=== PATIENT | female | born 1985 | race Two or more races ===

== ENCOUNTER 2016-09-26 19:51 | Emergency (ER) | payer OTHER ==
[~2016-09-26] VITALS: Ht 162.6 cm; Wt 94.6 kg
[~2016-09-26 19:51] MED LIST: ACET-704 PO; CITA10TA8 PO; CITA40TA12 PO; CYCL10TA2 PO; DICY20TA30; HYDR-210 PO; IBUP-1060 PO; LANS30TA6 PO; OMEP10CA PO; ONDA4TAB10 SL; ONDA4TAB7; PROM50VI IJ; PROM50VI PO; SUCR1TAB29; SULF1TAB24 PO
[2016-09-26] MEDS ORDERED: HYDR-2666 PO (21:16)
[2016-09-26] MEDS ORDERED: POLY17PO5 PO (21:16)
--- NOTE | 2016-09-26 21:16 | PHYS DOC ---
Past Medical History Past Medical History: Diverticulosis, IBS, Kidney Stone, Other Additional Past Medical Histor: Ischemic colitis, dumping syndrome, CYSTOSCOPY W/ STENT PLACEMENT Past Surgical History: Cholecystectomy, Gastric Bypass, Hysterectomy, Tubal ligation, Other Additional Past Surgical Histo: bladder x3, vag lift, low back surg NOS, ear tubes placed as child Alcohol Use: Occasionally Drug Use: None Adult General Chief Complaint Chief Complaint: PELVIC PAIN HPI HPI 31-year-old female presenting the emergency department with pelvic pain associated with defecation. She reports feeling a bulge in her vagina when she defecates. She denies any fevers or chills. She denies nausea or vomiting. Her pain is sharp intermittent moderate and without alleviating factors. She currently has an appointment with a software quality engineer on Monday. Review of Systems Review of Systems ROS negative for fevers chills chest pain shortness of breath. All other review of systems is negative unless otherwise noted in history of present illness. Allergies Allergies Allergies Coded Allergies Type Severity Reaction Last Updated Verified metronidazole Allergy Intermediate Hives 11/11/14 Yes Physical Exam Physical Exam Constitutional: Well developed, well nourished, no acute distress, non-toxic appearance. [] HENT: Normocephalic, atraumatic, bilateral external ears normal, oropharynx moist, no oral exudates, nose normal. [] Eyes: PERRLA, EOMI, conjunctiva normal, no discharge. [] Neck: Normal range of motion, no tenderness, supple, no stridor. [] Cardiovascular:Heart rate regular rhythm, no murmur [] Lungs & Thorax: Bilateral breath sounds clear to auscultation [] Abdomen: Abdomen is minimally tender in the left lower quadrant without rebound tenderness or guarding present. Negative McBurney's point. Negative Steven sign. No hernia appreciated in the inguinal region. Vaginal exam performed in the presence of a female nurse showed mild swelling with Valsalva in the posterior aspect of the vagina. Skin: Warm, dry, no erythema, no rash. [] Back: No tenderness, no CVA tenderness. [] Extremities: No tenderness, no cyanosis, no clubbing, ROM intact, no edema. [] Neurologic: Alert and oriented X 3, normal motor function, normal sensory function, no focal deficits noted. [] Psychologic: Affect normal, judgement normal, mood normal. [] Current Patient Data Vital Signs Vital Signs Date Time Temp Pulse Resp B/P Pulse Ox O2 Delivery O2 Flow Rate FiO2 09/26/16 21:17 88 18 139/93 97 Room Air 09/26/16 20:35 98.6 98.6 EKG EKG [] Radiology/Procedures Radiology/Procedures [] Course & Med Decision Making Course & Med Decision Making Pertinent Labs and Imaging studies reviewed. (See chart for details) 31-year-old female presenting to the emergency department with signs and symptoms consistent with a rectocele. Patient currently has follow-up with software quality engineer and previously had a surgery for similar complaint. Vital signs were unremarkable. Abdomen exam was unconcerning. The patient was provided pain medications to follow-up with gynecology on Monday. Dragon Disclaimer Dragon Disclaimer This electronic medical record was generated, in whole or in part, using a voice recognition dictation system. Departure Departure Impression: Primary Impression: Rectocele without uterine prolapse Disposition: HOME, SELF-CARE Condition: STABLE Referrals: PIERCE MARTINO MD (PCP) MICHAEL ADLER Jr, MD GYNOCOLOGY Patient Instructions: Pelvic Pain, Female, [id number] Additional Instructions: Thank you for allowing us to participate in your care today. Followup with your gynocologist on mon. Return to the emergency department you have any new or concerning findings. This should be evaluated by the primary care physician and any necessary consulting services for continued management within a few days after discharge. Return to emergency room if you have any new or concerning symptoms including but not limited to fever, chills, nausea, vomiting, intractable pain, any new rashes, chest pain, shortness of air, uncontrolled bleeding, difficulty breathing, and/or vision loss. You may have been prescribed medication that can change in your level of thinking and ability to operate machinery. These medications include hydrocodone and Ativan. Also, Benadryl has been known to do this as well. Be sure to check with your pharmacist and ask if the medications you've prescribed can affect your level of consciousness. I recommend not operating heavy machinery or driving while on medication such as these. Scripts Polyethylene Glycol 3350 (Miralax)17 Gm Powd.pack1 Packet PO DAILY #30 PACKET Ref 3 Prov:AIDE CAMARENA MD 09/26/16 Hydrocodone Bit/Acetaminophen (Hydrocodone-Apap 5-325 )1 Each Tablet1 Tab PO PRN Q6HRS PRN PAIN #15 TAB Be careful as this medication may cause you to be drowsy or tired. Do not drive on this medication. Prov:AIDE CAMARENA MD 09/26/16 AIDE CAMARENA MD Sep 26, 2016 21:17
[2016-09-26 21:17] VITALS: BP 139/93
== END 2016-09-26 21:19 | disposition home or self-care (01) ==
LOC: ER 19:51
DX: N81.6 Rectocele (principal); Z90.49 Acquired absence of other specified parts of digestive tract; Z90.710 Acquired absence of both cervix and uterus; Z98.51 Tubal ligation status; Z98.84 Bariatric surgery status; Z88.1 Allergy status to other antibiotic agents
CPT/HCPCS: 99283

== ENCOUNTER 2016-10-08 14:12 | Emergency (ER) | payer OTHER ==
[~2016-10-08] VITALS: Ht 162.6 cm; Wt 90.7 kg
[~2016-10-08 14:12] MED LIST changes: +HYDR-2666 PO; +POLY17PO5 PO
[2016-10-08 15:02] LABS: NEG OBC UR NEG; POS OBC UR POS
[2016-10-08 15:04] LABS: BILIRUBIN,URINE NEGATIVE (NEG); GLUCOSE,URINE NEGATIVE (NEG); NITRITE,URINE NEGATIVE (NEG); PH,URINE 7.5; PROTEIN,URINE NEGATIVE (NEG-TRACE)
[2016-10-08] MEDS ORDERED: IV NORMAL SALINE 1000ML BAG 1,000 ML IV SCH (15:12)
[2016-10-08] MEDS: MORPHINE SULFATE 4 MG/ML DISP.SYRIN. IV ONE ×2 (15:15→15:57)
[2016-10-08] MEDS ORDERED: ONDANSETRON PF 4 MG/2 ML VIAL. IV ONE (15:15)
[2016-10-08] MEDS ORDERED: KETOROLAC 15 MG/ML VIAL. IV ONE (15:15)
[2016-10-08 15:18] LABS: BACTERIA,URINE MODERATE /HPF (0-FEW); RBC,URINE 0 /HPF (0-2); SQUAMOUS EPITHELIAL CELL,UR MANY /LPF; WBC,URINE 0 /HPF (0-4)
--- NOTE | 2016-10-08 15:19 | PHYS DOC ---
Past Medical History Past Medical History: Diverticulosis, IBS, Kidney Stone, Other Additional Past Medical Histor: Ischemic colitis, dumping syndrome, prolapse bladder and rectum Past Surgical History: Cholecystectomy, Gastric Bypass, Hysterectomy, Tubal ligation, Other Additional Past Surgical Histo: bladder x3, vag lift, low back sx NOS, cystoscopy w/ stent Alcohol Use: Occasionally Drug Use: None Adult General Chief Complaint Chief Complaint: FLANK PAIN HPI HPI Patient is a 31 year old female who presents with R flank pain. Patient reports that this morning she had onset of R flank pain without provocation. She describes a constant "punching" pain with occasional stabbing pain. No clear mitigating factors. She has not taken anything for pain as she could not find the meds at home. Patient has been having N/V as well for the past few days that she attributes to her hiatal hernia. Patient reports pain similar to prior kidney stones; last stone was 1-2 years ago. She does have some dysuria today at well. No other acute complaints. Review of Systems Review of Systems Constitutional: Denies fever or chills Eyes: Denies change in visual acuity or eye pain HENT: Denies nasal congestion or sore throat Respiratory: Denies cough or shortness of breath Cardiovascular: Denies chest pain GI: Nausea/vomiting. Denies abdominal pain, bloody stools or diarrhea : Dysuria, frequency Musculoskeletal: R flank pain. Integument: Denies rash or skin lesions Neurologic: Denies headache, focal weakness or sensory changes Current Medications Current Medications Current Medications Medications (Trade) Dose Ordered Sig/Too Start Time Stop Time Status Last Admin Dose Admin Acetaminophen/ Hydrocodone Bitart (Lortab 5/325) 2 tab 1X ONCE 10/08/16 16:45 10/08/16 16:46 UNV Ketorolac Tromethamine (Toradol) 15 mg ONCE ONCE 10/08/16 15:30 10/08/16 15:31 DC 10/08/16 15:40 15 MG Morphine Sulfate 4 mg 1X ONCE 10/08/16 15:15 10/08/16 16:00 DC 10/08/16 15:57 4 MG Ondansetron HCl (Zofran) 4 mg 1X ONCE 10/08/16 15:15 10/08/16 15:18 DC 10/08/16 15:40 4 MG Sodium Chloride (Iv Sodium Chloride 0.9% 1000ml Bag) 1,000 ml @ 1,000 mls/hr Q1H 10/08/16 15:12 10/08/16 16:11 DC 10/08/16 15:41 1,000 MLS/HR Allergies Allergies Allergies Coded Allergies Type Severity Reaction Last Updated Verified metronidazole Allergy Intermediate Hives 11/11/14 Yes Physical Exam Physical Exam Constitutional: Well developed, well nourished, non-toxic appearance HENT: Normocephalic, atraumatic, bilateral external ears normal Eyes: EOMI, conjunctiva normal, no discharge Neck: Normal range of motion, no stridor Cardiovascular: Heart rate normal, regular rhythm, no murmur Lungs & Thorax: Bilateral breath sounds clear to auscultation Abdomen: Bowel sounds normal, soft, non-distended, no TTP Skin: Warm, dry, no erythema, no rash Back: R CVA tenderness Extremities: No obvious deformity, no edema Neurologic: Alert and oriented X 3, no gross deficits noted Current Patient Data Vital Signs Vital Signs Date Time Temp Pulse Resp B/P Pulse Ox O2 Delivery O2 Flow Rate FiO2 10/08/16 15:57 16 10/08/16 14:22 98.4 68 149/83 100 Room Air 98.4 Lab Values Laboratory Tests Test 10/08/16 14:28 10/08/16 15:12 Urine Collection Type Unknown Urine Color Yellow Urine Clarity Turbid Urine pH 7.5 Urine Specific [place] 1.025 Urine Protein Negativemg/dL (NEG-TRACE) Urine Glucose (UA) Negativemg/dL (NEG) Urine Ketones (Stick) Negativemg/dL (NEG) Urine Blood Negative (NEG) Urine Nitrite Negative (NEG) Urine Bilirubin Negative (NEG) Urine Urobilinogen Dipstick 1.0mg/dL (0.2 mg/dL) Urine Leukocyte Esterase Negative (NEG) Urine RBC 0/HPF (0-2) Urine WBC 0/HPF (0-4) Urine Squamous Epithelial Cells Many/LPF Urine Bacteria Moderate/HPF (0-FEW) Urine Test Negative (NEG) White Blood Count 9.0x10^3/uL (4.0-11.0) Red Blood Count 4.48x10^6/uL (3.50-5.40) Hemoglobin 12.3g/dL (12.0-15.5) Hematocrit 37.4% (36.0-47.0) Mean Corpuscular Volume 84fL (79-100) Mean Corpuscular Hemoglobin 27pg (25-35) Mean Corpuscular Hemoglobin Concent 33g/dL (31-37) Red Cell Distribution Width 16.9% (11.5-14.5) H Platelet Count 314x10^3/uL (140-400) Neutrophils (%) (Auto) 60% (31-73) Lymphocytes (%) (Auto) 31% (24-48) Monocytes (%) (Auto) 6% (0-9) Eosinophils (%) (Auto) 3% (0-3) Basophils (%) (Auto) 0% (0-3) Neutrophils # (Auto) 5.4x10^3uL (1.8-7.7) Lymphocytes # (Auto) 2.8x10^3/uL (1.0-4.8) Monocytes # (Auto) 0.5x10^3/uL (0.0-1.1) Eosinophils # (Auto) 0.3x10^3/uL (0.0-0.7) Basophils # (Auto) 0.0x10^3/uL (0.0-0.2) Sodium Level 145mmol/L (136-145) Potassium Level 3.9mmol/L (3.5-5.1) Chloride Level 106mmol/L (98-107) Carbon Dioxide Level 31mmol/L (21-32) Anion Gap 8 (6-14) Blood Urea Nitrogen 11mg/dL (7-20) Creatinine 0.7mg/dL (0.6-1.0) Estimated GFR (Cockcroft-Gault) 97.0 BUN/Creatinine Ratio 16 (6-20) Glucose Level 89mg/dL (70-99) Calcium Level 9.1mg/dL (8.5-10.1) Total Bilirubin 0.3mg/dL (0.2-1.0) Aspartate Amino Transferase (AST) 18U/L (15-37) Alanine Aminotransferase (ALT) 25U/L (14-59) Alkaline Phosphatase 77U/L (46-116) Total Protein 7.0g/dL (6.4-8.2) Albumin 3.5g/dL (3.4-5.0) Albumin/Globulin Ratio 1.0 (1.0-1.7) Laboratory Tests 10/08/16 15:12 Laboratory Tests 10/08/16 15:12 EKG EKG [] Radiology/Procedures Radiology/Procedures CT A/P: IMPRESSION - No evidence of renal stone or hydronephrosis. - Diverticulosis with no evidence of acute diverticulitis. - Status post cholecystectomy, hysterectomy and gastric bypass. Course & Med Decision Making Course & Med Decision Making Pertinent Labs and Imaging studies reviewed. (See chart for details) Patient is 31 year old female who presents with R flank pain. Suspect ureteral stone. Will check labs, UA, CT A/P (after discussion with patient about pros/ cons of repeat imaging, eg radiation exposure). IVF bolus, pain meds, nausea meds ordered for relief of symptoms. UA shows bacteria but no WBCs, leuk esterase, nitrites, or blood. Blood work unremarkable. Imaging results as above. Pain due to muscle spasm? Discussed results with patient, who reports symptoms improved. Will discharge home with rx for naproxen (patient declined rx for muscle relaxant or nausea med as she already has those at home). Given instructions for follow up and return precautions. Dragon Disclaimer Dragon Disclaimer This electronic medical record was generated, in whole or in part, using a voice recognition dictation system. Departure Departure Impression: Primary Impression: Flank pain Disposition: 01 HOME, SELF-CARE Condition: IMPROVED Referrals: PIERCE MARTINO MD (PCP) Patient Instructions: Flank Pain Additional Instructions: Thank you for allowing us to provide care today in the Emergency Department. Take the provided medication as directed. Continue to take the muscle relaxant and nausea medication that you have at home already. Schedule a follow up appointment with your primary care doctor. Return promptly to the Emergency Department if you develop any new or concerning symptoms. Scripts Naproxen 375 Mg [id number] Mg PO BID PRN PAIN #20 Prov:ROSAURA PHIPPS MD 10/08/16 ROSAURA PHIPPS MD Oct 08, 2016 15:19
[2016-10-08] MEDS ORDERED: KETOROLAC TROMETHAMINE 30 MG/ML SYRINGE. IV ONE (15:30)
[2016-10-08 15:50] LABS: BASO % 0 % (0-3); EOS % 3 % (0-3); HEMATOCRIT 37.4 % (36.0-47.0); HEMOGLOBIN 12.3 g/dL (12.0-15.5); LYMPH # 2.8 x10^3/uL (1.0-4.8); LYMPH % 31 % (24-48); MEAN CORPUSCULAR HEMOGLOBIN 27 pg (25-35); MEAN CORPUSCULAR HGB CONC 33 g/dL (31-37); MEAN CORPUSCULAR VOLUME 84 fL (79-100); MONO % 6 % (0-9); NEUT % 60 % (31-73); PLATELET COUNT 314 x10^3/uL (140-400); RED BLOOD COUNT 4.48 x10^6/uL (3.50-5.40); RED CELL DISTRIBUTION WIDTH 16.9 % (11.5-14.5)
[2016-10-08 16:05] LABS: CALCIUM 9.1 mg/dL (8.5-10.1); CREATININE 0.7 mg/dL (0.6-1.0); POTASSIUM 3.9 mmol/L (3.5-5.1)
[2016-10-08 16:11] LABS: ALBUMIN 3.5 g/dL (3.4-5.0); TOTAL BILIRUBIN 0.3 mg/dL (0.2-1.0)
--- NOTE | 2016-10-08 16:25 | RAD ---
PROCEDURE CT abdomen and pelvis without contrast dated 10/08/2016. HISTORY Right-sided flank pain started this morning. TECHNIQUE Contiguous axial imaging of the abdomen and pelvis performed without the administration of intravenous contrast.Exposure: One or more of the following individualized dose reduction techniques were utilized for this exam: 1. Automated exposure control. 2. Adjustment of the mA and/or kV according to patient size. 3. Use of iterative reconstruction technique. COMPARISON 08/14/2016. FINDINGS Limited images of the lung bases are clear. Heart size within normal limits. No pleural or pericardial effusion. Solid abdominal viscera not well evaluated in the absence of contrast material. No apparent attenuation abnormality within the liver or spleen. Gallbladder is surgically absent. Pancreas is atrophic. Adrenal glands unremarkable. Both kidneys are symmetric in size and attenuation. No calcific renal or ureteral stone. No hydronephrosis. Unopacified GI tract normal in caliber and contour. Scattered diverticula throughout the colon. No pericolonic inflammatory changes. Evidence of prior gastric bypass. The appendix is not clearly identified. No inflammatory changes in the right lower quadrant. Images of pelvis show nondistended urinary bladder. No calcific bladder stone. No free pelvic fluid or pelvic lymphadenopathy. Uterus is surgically absent. Bone windows show no acute findings. Mild multilevel spondylosis. IMPRESSION - No evidence of renal stone or hydronephrosis. - Diverticulosis with no evidence of acute diverticulitis. - Status post cholecystectomy, hysterectomy and gastric bypass. Electronically signed by: Breezy Mcdowell (Oct 08, 2016 16:24:23)
[2016-10-08 16:30] VITALS: BP 155/66
[2016-10-08] MEDS ORDERED: NAPR375T3 PO (16:36)
[2016-10-08] MEDS ORDERED: HYDROCODONE/APAP 5/325MG TABLET. PO ONE (16:45)
== END 2016-10-08 16:54 | disposition home or self-care (01) ==
LOC: ER 14:12
DX: R10.9 Unspecified abdominal pain (principal); Z90.49 Acquired absence of other specified parts of digestive tract; Z90.710 Acquired absence of both cervix and uterus; Z98.51 Tubal ligation status; Z98.84 Bariatric surgery status; Z88.1 Allergy status to other antibiotic agents
CPT/HCPCS: 36415; 74176; 80053; 81001; 81025; 85027; 87086; 96361; 96374; 96375; 99285; J1885; J2270; J2405; J7030

== ENCOUNTER 2016-11-03 20:16 | Emergency (ER) | payer OTHER ==
[~2016-11-03] VITALS: Ht 162.6 cm; Wt 90.7 kg
[~2016-11-03 20:16] MED LIST changes: +NAPR375T3 PO
[2016-11-03 22:14] LABS: BASO % 0 % (0-3); EOS % 4 % (0-3); HEMATOCRIT 38.3 % (36.0-47.0); HEMOGLOBIN 12.4 g/dL (12.0-15.5); LYMPH % 36 % (24-48); MEAN CORPUSCULAR HEMOGLOBIN 27 pg (25-35); MEAN CORPUSCULAR HGB CONC 32 g/dL (31-37); MEAN CORPUSCULAR VOLUME 84 fL (79-100); MONO % 8 % (0-9); NEUT % 51 % (31-73); PLATELET COUNT 349 x10^3/uL (140-400); RED BLOOD COUNT 4.58 x10^6/uL (3.50-5.40); RED CELL DISTRIBUTION WIDTH 16.7 % (11.5-14.5); WHITE BLOOD COUNT 8.3 x10^3/uL (4.0-11.0)
[2016-11-03] MEDS ORDERED: NAPROXEN 250 MG TABLET PO ONE (22:30)
[2016-11-03 22:31] LABS: CREATININE 0.7 mg/dL (0.6-1.0); POTASSIUM 3.4 mmol/L (3.5-5.1)
[2016-11-04 00:47] VITALS: BP 129/73
[2016-11-04] MEDS ORDERED: NAPR250T2 PO (00:50)
[2016-11-04] MEDS ORDERED: CYCL10TA2 PO (00:50)
[2016-11-04] MEDS ORDERED: DIAZEPAM 5 MG TABLET PO ONE (01:00)
--- NOTE | 2016-11-04 01:28 | ED.ADGEN ---
Past Medical History Past Medical History: Diverticulosis, IBS, Kidney Stone, Other Additional Past Medical Histor: Ischemic colitis, dumping syndrome, prolapse bladder and rectum Past Surgical History: Cholecystectomy, Gastric Bypass, Hysterectomy, Tubal ligation, Other Additional Past Surgical Histo: bladder x3, vag lift, low back sx NOS, cystoscopy w/ stent Alcohol Use: Occasionally Drug Use: None Adult General Chief Complaint Chief Complaint: CHEST PAIN HPI HPI Patient is a 31 year old woman, history of type 2 diabetes mellitus, on hormonal replacement therapy, who presents to the emergency department with complaint of right upper chest pain radiating to the arm, which she states she first noted on Monday. Patient states that she was "playing a dancing game", with her kids on Monday night, states that she does not recall any discrete injuries, but was more active than usual. States that she woke up in the morning was experiencing right upper chest wall pain, that was worse with motion and deep inspiration. She denies any fevers or chills, any cough, any shortness of breath, states the pain is worse with deep inspiration and direct palpation, no history of DVT or PE, no swelling of the extremities. No other complaints. She took ibuprofen yesterday, and states that it helped slightly. No medications today. No drugs, alcohol or cigarettes. Review of Systems Review of Systems Constitutional: Denies fever or chills. [] Eyes: Denies change in visual acuity. [] HENT: Denies nasal congestion or sore throat. [] Respiratory: Denies cough or shortness of breath. [] Cardiovascular: Denies edema, complaining of right-sided chest wall pain, with radiation into the right arm. Sharp and stabbing. GI: Denies abdominal pain, nausea, vomiting, bloody stools or diarrhea. [] : Denies dysuria. [] Musculoskeletal: Denies back pain or joint pain. [] Integument: Denies rash. [] Neurologic: Denies headache, focal weakness or sensory changes. [] Endocrine: Denies polyuria or polydipsia. [] Lymphatic: Denies swollen glands. [] Psychiatric: Denies depression or anxiety. [] Current Medications Current Medications Current Medications Medications (Trade) Dose Ordered Sig/Too Start Time Stop Time Status Last Admin Dose Admin Diazepam (Valium) 5 mg 1X ONCE 11/04/16 01:00 11/04/16 01:01 DC 11/04/16 00:53 5 MG Naproxen (Naprosyn) 250 mg 1X ONCE 11/03/16 22:30 11/03/16 22:31 DC 11/03/16 22:33 250 MG Allergies Allergies Allergies Coded Allergies Type Severity Reaction Last Updated Verified metronidazole Allergy Intermediate Hives 11/11/14 Yes Physical Exam Physical Exam Constitutional: Well developed, well nourished, no acute distress, non-toxic appearance. [] HENT: Normocephalic, atraumatic, bilateral external ears normal, oropharynx moist, no oral exudates, nose normal. [] Eyes: PERRLA, EOMI, conjunctiva normal, no discharge. [] Neck: Normal range of motion, no tenderness, supple, no stridor. [] Cardiovascular:Heart rate regular rhythm, no murmur , S1, S2, rubs or gallops. Patient with reproducible anterior right chest wall pain, with palpation between ribs 4 and 5, with mild tenderness palpation extending into the shoulder. No rashes or lesions or other maladies identified and external examination, no crepitus. [] Lungs & Thorax: Bilateral breath sounds clear to auscultation [] Abdomen: Bowel sounds normal, soft, no tenderness, no masses, no rebound, rigidity, no guarding, no pulsatile masses. [] Skin: Warm, dry, no erythema, no rash. [] Back: No tenderness, no CVA tenderness. [] Extremities: No tenderness, no cyanosis, no clubbing, ROM intact, no edema. Negative Homans sign. [] Neurologic: Alert and oriented X 3, normal motor function, normal sensory function, no focal deficits noted. [] Psychologic: Affect normal, judgement normal, mood normal. [] Current Patient Data Vital Signs Vital Signs Date Time Temp Pulse Resp B/P Pulse Ox O2 Delivery O2 Flow Rate FiO2 11/03/16 22:13 64 20 158/79 96 Room Air 11/03/16 20:25 98.1 98.1 Lab Values Laboratory Tests Test 11/03/16 20:45 White Blood Count 8.3x10^3/uL (4.0-11.0) Red Blood Count 4.58x10^6/uL (3.50-5.40) Hemoglobin 12.4g/dL (12.0-15.5) Hematocrit 38.3% (36.0-47.0) Mean Corpuscular Volume 84fL (79-100) Mean Corpuscular Hemoglobin 27pg (25-35) Mean Corpuscular Hemoglobin Concent 32g/dL (31-37) Red Cell Distribution Width 16.7% (11.5-14.5) H Platelet Count 349x10^3/uL (140-400) Neutrophils (%) (Auto) 51% (31-73) Lymphocytes (%) (Auto) 36% (24-48) Monocytes (%) (Auto) 8% (0-9) Eosinophils (%) (Auto) 4% (0-3) H Basophils (%) (Auto) 0% (0-3) Neutrophils # (Auto) 4.2x10^3uL (1.8-7.7) Lymphocytes # (Auto) 3.0x10^3/uL (1.0-4.8) Monocytes # (Auto) 0.7x10^3/uL (0.0-1.1) Eosinophils # (Auto) 0.3x10^3/uL (0.0-0.7) Basophils # (Auto) 0.0x10^3/uL (0.0-0.2) D-Dimer (Britney) < 0.27ug/mlFEU (0.00-0.50) Sodium Level 145mmol/L (136-145) Potassium Level 3.4mmol/L (3.5-5.1) L Chloride Level 106mmol/L (98-107) Carbon Dioxide Level 29mmol/L (21-32) Anion Gap 10 (6-14) Blood Urea Nitrogen 6mg/dL (7-20) L Creatinine 0.7mg/dL (0.6-1.0) Estimated GFR (Cockcroft-Gault) 97.0 Glucose Level 70mg/dL (70-99) Calcium Level 9.0mg/dL (8.5-10.1) Troponin I Quantitative < 0.017ng/mL (0.000-0.055) Laboratory Tests 11/03/16 20:45 Laboratory Tests 11/03/16 20:45 EKG EKG EC: Sinus rhythm, heart rate 71 bpm, upright axis, QTC of 413, NC 136, QRS of 92, no ST elevations or depressions, noted and some acute ST abnormalities. As interpreted by me. [] Radiology/Procedures Radiology/Procedures Chest x-ray: PA and lateral: Normal cardiopulmonary silhouette, no infiltrates, no effusions, no soft tissue or bony abnormalities identified. As interpreted by me.[] Course & Med Decision Making Course & Med Decision Making Pertinent Labs and Imaging studies reviewed. (See chart for details) Patient well-appearing, has had constant pain which is reproducible for the past 5 days. Chest x-ray obtained, along basic laboratory studies due to patient 's concerns, history of hormone repletion therapy, and type 2 diabetes mellitus , with concern for possible atypical chest pain. Laboratory studies including d- dimer within normal limits, chest x-ray to Jerry. I did discuss these findings in detail patient at bedside, at this time I believe that there is no evidence of is a cardiac or pulmonary abnormality, is consistent with costochondritis, musculoskeletal cause. Patient received naproxen and Valium in the ED, is feeling better and reevaluation. Patient is in agreement with the plan to use naproxen, cycled endocrine, will follow up with a primary care provider if symptoms persist, and will return to the ED if any new or concerning symptoms as discussed develop. Patient discharged home in stable condition with prescription for naproxen and cycled endocrine, with plan as above. Dragon Disclaimer Gianna Disclaimer This electronic medical record was generated, in whole or in part, using a voice recognition dictation system. Departure Impression: Primary Impression: Costochondritis Disposition: HOME, SELF-CARE Condition: IMPROVED Scripts Naproxen 250 Mg [id number] Mg PO BID PRN PAIN #10 Prov:ANIL MOLINA DO 11/04/16 Cyclobenzaprine Hcl 10 Mg [id number] Mg PO TID PRN MUSCLE SPASMS #10 TAB Prov:ANIL MOLINA DO 11/04/16 ANIL MOLINA DO Nov 04, 2016 01:28
--- NOTE | 2016-11-04 06:09 | EKG ---
[facility] [address] [place] [address] Test Date: 2016-11-03 Test Time: 20:30:45 Pat Name: DAYTON MONROE Department: Room: Gender: F Glassie: : 1985 Requested By: ANIL MOLINA Order Number: [id number] Reading MD: Jaswant Person Measurements Intervals [place] Rate: 71 P: 41 [place]: 136 QRS: 30 QRSD: 92 T: 28 QT: 376 QTc: 413 Interpretive Statements SINUS RHYTHM RI6.01 Unconfirmed report Compared to ECG 12/29/2013 17:34:04 No significant changes Electronically Signed On 11-20-2016 9:48:11 YARN REWINDER by Jaswant Person
--- NOTE | 2016-11-04 07:43 | RAD ---
Chest, 2 views, 11/03/2016: History: Right-sided chest pain The heart size and pulmonary vascularity are normal. No pulmonary infiltrates are seen. There is no evidence of pleural fluid. There is radiopaque material in the colon presumably representing contrast material from a recent diagnostic study performed elsewhere. IMPRESSION: No acute cardiopulmonary abnormality is detected.
== END 2016-11-04 01:25 | disposition home or self-care (01) ==
LOC: ER 20:16
DX: M94.0 Chondrocostal junction syndrome [Tietze] (principal); E11.9 Type 2 diabetes mellitus without complications; K58.9 Irritable bowel syndrome, unspecified; K91.1 Postgastric surgery syndromes; Z90.49 Acquired absence of other specified parts of digestive tract; Z98.84 Bariatric surgery status; Z90.710 Acquired absence of both cervix and uterus; Z98.51 Tubal ligation status; Z96.0 Presence of urogenital implants; Z88.1 Allergy status to other antibiotic agents; Z87.442 Personal history of urinary calculi
CPT/HCPCS: 36415; 71020; 80048; 81025; 84484; 85027; 85379; 93005; 99285-25

== ENCOUNTER 2016-11-08 09:38 | Emergency (ER) | payer OTHER ==
[~2016-11-08] VITALS: Ht 162.6 cm; Wt 90.7 kg
[~2016-11-08 09:38] MED LIST changes: +NAPR250T2 PO
[2016-11-08 10:18] VITALS: BP 144/86
[2016-11-08 10:52] LABS: NEGATIVE OBC STREP NEG; POSITIVE OBC STREP POS
[2016-11-08] MEDS ORDERED: LIDO20SO PO (11:52)
[2016-11-08] MEDS ORDERED: PRED50TA PO (11:52)
[2016-11-08] MEDS ORDERED: AMOX875T PO (11:52)
--- NOTE | 2016-11-08 11:52 | PHYS DOC ---
Past Medical History Past Medical History: Diverticulosis, IBS, Kidney Stone, Other Additional Past Medical Histor: Ischemic colitis, dumping syndrome, prolapse bladder and rectum Past Surgical History: Cholecystectomy, Gastric Bypass, Hysterectomy, Tubal ligation, Other Additional Past Surgical Histo: bladder x3, vag lift, low back sx NOS, cystoscopy w/ stent Alcohol Use: Occasionally Drug Use: None Adult General Chief Complaint Chief Complaint: SORE THROAT [facility] HPI Patient is a 31 year old female who presents today with sore throat for 4 days. Patient denies any fever. Review of Systems Review of Systems Constitutional: See history of present illness Eyes: Denies change in visual acuity, redness, or eye pain [] HENT: sore throat [] Respiratory: Denies cough or shortness of breath [] Cardiovascular: No additional information not addressed in HPI [] GI: Denies abdominal pain, nausea, vomiting, bloody stools or diarrhea [] : Denies dysuria or hematuria [] Musculoskeletal: Denies back pain or joint pain [] Integument: Denies rash or skin lesions [] Neurologic: Denies headache, focal weakness or sensory changes [] Endocrine: Denies polyuria or polydipsia [] Allergies Allergies Allergies Coded Allergies Type Severity Reaction Last Updated Verified metronidazole Allergy Intermediate Hives 11/11/14 Yes Physical Exam Physical Exam Constitutional: Well developed, well nourished, no acute distress, non-toxic appearance. [] HENT: Normocephalic, atraumatic, bilateral external ears normal, oropharynx moist, no oral exudates, nose normal. [] +2 tonsils with mild erythema and small amount of exudate. +2 anterior cervical adenopathy. Eyes: PERRLA, EOMI, conjunctiva normal, no discharge. [] Neck: Normal range of motion, no tenderness, supple, no stridor. [] Cardiovascular:Heart rate regular rhythm, no murmur [] Lungs & Thorax: Bilateral breath sounds clear to auscultation [] Abdomen: Bowel sounds normal, soft, no tenderness, no masses, no pulsatile masses. [] Skin: Warm, dry, no erythema, no rash. [] Back: No tenderness, no CVA tenderness. [] Extremities: No tenderness, no cyanosis, no clubbing, ROM intact, no edema. [] Neurologic: Alert and oriented X 3, normal motor function, normal sensory function, no focal deficits noted. [] Psychologic: Affect normal, judgement normal, mood normal. [] Current Patient Data Vital Signs Vital Signs Date Time Temp Pulse Resp B/P Pulse Ox O2 Delivery O2 Flow Rate FiO2 11/08/16 10:18 98.4 105 16 98 Room Air 98.4 Lab Values Laboratory Tests Test 11/08/16 10:22 Group A Streptococcus Rapid Positive (NEGATIVE) EKG EKG [] Radiology/Procedures Radiology/Procedures [] Course & Med Decision Making Course & Med Decision Making Pertinent Labs and Imaging studies reviewed. (See chart for details) Patient is in the ED with sore throat. Positive rapid strep. Discharged with amoxicillin for 10 days and lidocaine viscous and prednisone for 5 days. Saltwater gargles recommended. Follow-up with PCP in one week. Dragon Disclaimer Dragon Disclaimer This electronic medical record was generated, in whole or in part, using a voice recognition dictation system. Departure Departure Impression: Primary Impression: Streptococcal pharyngitis Disposition: HOME, SELF-CARE Condition: STABLE Referrals: PIERCE MARTINO MD (PCP) Follow-up with your doctor in one week Patient Instructions: Strep Throat Additional Instructions: You tested positive for strep. Please complete your antibiotics. You can also utilize saltwater gargles. Take Tylenol Motrin for pain. We also given a prescription for lidocaine viscous. Use it as directed. Come back to the emergency room for any concerning symptoms otherwise follow-up with your doctor in one week. Scripts Lidocaine Hcl (Lidocaine Hcl Viscous)20 Mg/1 Ml Solution5 Ml PO TID #100 ML Prov:CIELO MCDONALD APRN 11/08/16 Prednisone 50 Mg Tablet1 Tab PO DAILY #5 TAB Prov:CIELO MCDONALD APRN 11/08/16 Amoxicillin 875 Mg Tablet1 Tab PO BID #20 TAB Prov:CIELO MCDONALD APRN 11/08/16 CIELO MCDONALD APRN Nov 08, 2016 11:52
== END 2016-11-08 12:00 | disposition home or self-care (01) ==
LOC: ER 09:38
DX: J02.0 Streptococcal pharyngitis (principal); K58.9 Irritable bowel syndrome, unspecified; Z88.1 Allergy status to other antibiotic agents
CPT/HCPCS: 87880; 99283

== ENCOUNTER 2017-02-28 16:53 | Emergency (ER) | payer OTHER ==
[~2017-02-28] VITALS: Ht 162.6 cm; Wt 91.4 kg
[~2017-02-28 16:53] MED LIST changes: +AMOX875T PO; -HYDR-2666 PO; +HYDR-2758 PO; +LIDO20SO PO; +POLY17PO29 PO; -POLY17PO5 PO; +PRED50TA PO; -SUCR1TAB29; +SUCR1TAB35
[2017-02-28] MEDS ORDERED: PANTOPRAZOLE IV PUSH 40 MG VIAL. IVP ONE (19:30)
[2017-02-28] MEDS ORDERED: MORPHINE SULFATE 10 MG/ML VIAL. IV ONE (19:30)
[2017-02-28] MEDS ORDERED: IV NORMAL SALINE 1000ML BAG 1,000 ML IV ONE (19:30)
[2017-02-28] MEDS ORDERED: ONDANSETRON PF 4 MG/2 ML VIAL. IV ONE (19:30)
[2017-02-28 19:41] LABS: BASO # 0.1 x10^3/uL (0.0-0.2); BASO % 1 % (0-3); EOS % 2 % (0-3); HEMATOCRIT 39.1 % (36.0-47.0); HEMOGLOBIN 12.8 g/dL (12.0-15.5); LYMPH # 3.1 x10^3/uL (1.0-4.8); LYMPH % 28 % (24-48); MEAN CORPUSCULAR HEMOGLOBIN 27 pg (25-35); MEAN CORPUSCULAR HGB CONC 33 g/dL (31-37); MEAN CORPUSCULAR VOLUME 83 fL (79-100); MONO % 6 % (0-9); NEUT % 64 % (31-73); PLATELET COUNT 389 x10^3/uL (140-400); RED BLOOD COUNT 4.73 x10^6/uL (3.50-5.40); RED CELL DISTRIBUTION WIDTH 16.7 % (11.5-14.5); WHITE BLOOD COUNT 11.1 x10^3/uL (4.0-11.0)
[2017-02-28 19:51] LABS: BARBITURATES NEG (NEG); BENZODIAZEPINES NEG (NEG); CANNABINOIDS NEG (NEG); COCAINE NEG (NEG); METHADONE NEG (NEG); OPIATES NEG (NEG); PHENCYCLIDINE NEG (NEG)
[2017-02-28 19:54] LABS: INR 1.2 (0.8-1.1)
[2017-02-28 19:57] LABS: CALCIUM 8.8 mg/dL (8.5-10.1); CREATININE 0.8 mg/dL (0.6-1.0); GFR 82.6; POTASSIUM 3.9 mmol/L (3.5-5.1)
[2017-02-28] MEDS ORDERED: CONTRAST GIVEN MC PRN (20:00)
[2017-02-28] MEDS ORDERED: IOHEXOL 300 MG/ML 75 ML VIAL IV ONE (20:00)
[2017-02-28 20:02] LABS: NEG OBC FOB NEG; POS OBC FOB POS
[2017-02-28 20:04] LABS: ALBUMIN 3.5 g/dL (3.4-5.0); MAGNESIUM 2.2 mg/dL (1.8-2.4); TOTAL BILIRUBIN 0.4 mg/dL (0.2-1.0)
--- NOTE | 2017-02-28 20:48 | RAD ---
CT Abdomen and Pelvis With Intravenous Contrast: History: Left lower quadrant abdominal pain. Comparison: CT abdomen and pelvis October 08, 2016. Technique: After administration of intravenous contrast, 75 mL of Omnipaque 300, CT of the abdomen and pelvis was performed. Exposure: One or more of the following individualized dose reduction techniques were utilized for this examination: 1. Automated exposure control 2. Adjustment of the mA and/or kV according to patient size 3. Use of iterative reconstruction technique Findings: Liver, spleen, pancreas, and bilateral adrenal glands are unremarkable. Postsurgical changes of gastric bypass are seen. Gallbladder is absent. Bilateral kidneys enhance symmetrically. No bowel obstruction or inflammation is identified. No free air or free fluid is seen in the abdomen and pelvis. Uterus is absent. Urinary bladder is unremarkable. Impression: 1. No acute abnormality identified in the abdomen or pelvis. 2. Please note that this is at least the patient's [address] of the abdomen and pelvis. Electronically signed by: Breezy Blair MD (02/28/2017 8:44 PM)
--- NOTE | 2017-02-28 20:59 | PHYS DOC ---
Past Medical History Past Medical History: Diverticulosis, IBS, Kidney Stone, Other Additional Past Medical Histor: Ischemic colitis, dumping syndrome, prolapse bladder and rectum Past Surgical History: Cholecystectomy, Gastric Bypass, Hysterectomy, Tubal ligation, Other Additional Past Surgical Histo: bladder x3, vag lift, low back sx NOS, cystoscopy w/ stent Alcohol Use: Occasionally Drug Use: None Adult General Chief Complaint Chief Complaint: HEMATEMESIS/VOMITING BLOOD [facility] HPI Patient is a 32 year old female presenting to the emergency department for evaluation of abdominal pain nausea vomiting and diarrhea that has been going on for several days and his worsening. Patient says the emesis had streaks of blood in it earlier today and that scared her so she came to the emergency department for evaluation. Patient says the pain is epigastric goes into the left lower quadrant as well and she denies any vaginal bleeding vaginal discharge dysuria or hematuria. Review of Systems Review of Systems Constitutional: Denies fever or chills [] Eyes: Denies change in visual acuity, redness, or eye pain [] HENT: Denies nasal congestion or sore throat [] Respiratory: Denies cough or shortness of breath [] Cardiovascular: No additional information not addressed in HPI [] GI: + abdominal pain, nausea, vomiting, diarrhea [] : Denies dysuria or hematuria [] Musculoskeletal: Denies back pain or joint pain [] Integument: Denies rash or skin lesions [] Neurologic: Denies headache, focal weakness or sensory changes [] Current Medications Current Medications Current Medications Medications (Trade) Dose Ordered Sig/Too Start Time Stop Time Status Last Admin Dose Admin Hydromorphone HCl (Dilaudid) 1 mg 1X ONCE 02/28/17 21:15 02/28/17 21:16 DC 02/28/17 21:17 1 MG Info (Do NOT chart on this entry -- for MONITORING) 1 each PRN DAILY PRN 02/28/17 20:00 03/02/17 19:59 Iohexol (Omnipaque 300 Mg/ml) 75 ml 1X ONCE 02/28/17 20:00 02/28/17 20:01 DC 02/28/17 20:20 75 ML Ketorolac Tromethamine (Toradol) 30 mg 1X ONCE 02/28/17 21:15 02/28/17 21:16 DC 02/28/17 21:17 30 MG Morphine Sulfate 5 mg 1X ONCE 02/28/17 19:30 02/28/17 19:31 DC 02/28/17 19:36 5 MG Ondansetron HCl (Zofran) 8 mg 1X ONCE 02/28/17 19:30 02/28/17 19:31 DC 02/28/17 19:36 8 MG Pantoprazole Sodium (Protonix Vial) 40 mg 1X ONCE 02/28/17 19:30 02/28/17 19:31 DC 02/28/17 19:36 40 MG Promethazine HCl 12.5 mg/Sodium Chloride 50.5 ml @ 101 mls/hr 1X ONCE 02/28/17 21:15 02/28/17 21:44 DC 02/28/17 21:17 101 MLS/HR Sodium Chloride 1,000 ml @ 1,000 mls/hr 1X ONCE 02/28/17 19:30 02/28/17 20:29 DC 02/28/17 19:36 1,000 MLS/HR Allergies Allergies Allergies Coded Allergies Type Severity Reaction Last Updated Verified metronidazole Allergy Intermediate Hives 11/11/14 Yes Physical Exam Physical Exam Constitutional: Well developed, well nourished, no acute distress, non-toxic appearance. [] HENT: Normocephalic, atraumatic, bilateral external ears normal, oropharynx moist, no oral exudates, nose normal. [] Eyes: PERRLA, EOMI, conjunctiva normal, no discharge. [] Neck: Normal range of motion, no tenderness, supple, no stridor. [] Cardiovascular:Heart rate regular rhythm, no murmur [] Lungs & Thorax: Bilateral breath sounds clear to auscultation [] Abdomen: Bowel sounds normal, soft, + diffuse tenderness, no rebound or guarding , no masses, no pulsatile masses. [] Skin: Warm, dry, no erythema, no rash. [] Back: No tenderness, no CVA tenderness. [] Extremities: No tenderness, no cyanosis, no clubbing, ROM intact, no edema. [] Neurologic: Alert and oriented X 3, normal motor function, normal sensory function, no focal deficits noted. [] Current Patient Data Vital Signs Vital Signs Date Time Temp Pulse Resp B/P (MAP) Pulse Ox O2 Delivery O2 Flow Rate FiO2 02/28/17 21:32 80 17 141/83 (102) 98 Room Air 02/28/17 18:30 98.6 98.6 Lab Values Laboratory Tests Test 02/28/17 18:38 02/28/17 19:30 02/28/17 19:50 POC Urine HCG, Qualitative Hcg negative (Negative) White Blood Count 11.1 x10^3/uL (4.0-11.0) H Red Blood Count 4.73 x10^6/uL (3.50-5.40) Hemoglobin 12.8 g/dL (12.0-15.5) Hematocrit 39.1 % (36.0-47.0) Mean Corpuscular Volume 83 fL (79-100) Mean Corpuscular Hemoglobin 27 pg (25-35) Mean Corpuscular Hemoglobin Concent 33 g/dL (31-37) Red Cell Distribution Width 16.7 % (11.5-14.5) H Platelet Count 389 x10^3/uL (140-400) Neutrophils (%) (Auto) 64 % (31-73) Lymphocytes (%) (Auto) 28 % (24-48) Monocytes (%) (Auto) 6 % (0-9) Eosinophils (%) (Auto) 2 % (0-3) Basophils (%) (Auto) 1 % (0-3) Neutrophils # (Auto) 7.1 x10^3uL (1.8-7.7) Lymphocytes # (Auto) 3.1 x10^3/uL (1.0-4.8) Monocytes # (Auto) 0.7 x10^3/uL (0.0-1.1) Eosinophils # (Auto) 0.2 x10^3/uL (0.0-0.7) Basophils # (Auto) 0.1 x10^3/uL (0.0-0.2) Prothrombin Time 14.0 SEC (11.7-14.0) Prothrombin Time INR 1.2 (0.8-1.1) H PTT 23 SEC (24-38) L Sodium Level 143 mmol/L (136-145) Potassium Level 3.9 mmol/L (3.5-5.1) Chloride Level 105 mmol/L (98-107) Carbon Dioxide Level 29 mmol/L (21-32) Anion Gap 9 (6-14) Blood Urea Nitrogen 12 mg/dL (7-20) Creatinine 0.8 mg/dL (0.6-1.0) Estimated GFR (Cockcroft-Gault) 82.6 BUN/Creatinine Ratio 15 (6-20) Glucose Level 89 mg/dL (70-99) Calcium Level 8.8 mg/dL (8.5-10.1) Magnesium Level 2.2 mg/dL (1.8-2.4) Total Bilirubin 0.4 mg/dL (0.2-1.0) Aspartate Amino Transferase (AST) 21 U/L (15-37) Alanine Aminotransferase (ALT) 23 U/L (14-59) Alkaline Phosphatase 77 U/L (46-116) Creatine Kinase 297 U/L (26-192) H Total Protein 7.0 g/dL (6.4-8.2) Albumin 3.5 g/dL (3.4-5.0) Albumin/Globulin Ratio 1.0 (1.0-1.7) Lipase 57 U/L (73-393) L Urine Opiates Screen Neg (NEG) Urine Methadone Screen Neg (NEG) Urine Barbiturates Neg (NEG) Urine Phencyclidine Screen Neg (NEG) Urine Amphetamine/Methamphetamine Neg (NEG) Urine Benzodiazepines Screen Neg (NEG) Urine Cocaine Screen Neg (NEG) Urine Cannabinoids Screen Neg (NEG) Ethyl Alcohol Level < 10 mg/dL (0-10) Urine Ethyl Alcohol Neg (NEG) Stool Occult Blood Negative (NEG) Laboratory Tests 02/28/17 19:30 Laboratory Tests 02/28/17 19:30 EKG EKG [] Radiology/Procedures Radiology/Procedures CT Abdomen and Pelvis With Intravenous Contrast: History: Left lower quadrant abdominal pain. Comparison: CT abdomen and pelvis October 08, 2016. Technique: After administration of intravenous contrast, 75 mL of Omnipaque 300, CT of the abdomen and pelvis was performed. Exposure: One or more of the following individualized dose reduction techniques were utilized for this examination: 1. Automated exposure control 2. Adjustment of the mA and/or kV according to patient size 3. Use of iterative reconstruction technique Findings: Liver, spleen, pancreas, and bilateral adrenal glands are unremarkable. Postsurgical changes of gastric bypass are seen. Gallbladder is absent. Bilateral kidneys enhance symmetrically. No bowel obstruction or inflammation is identified. No free air or free fluid is seen in the abdomen and pelvis. Uterus is absent. Urinary bladder is unremarkable. Impression: 1. No acute abnormality identified in the abdomen or pelvis. 2. Please note that this is at least the patient's [address] of the abdomen and pelvis. Electronically signed by: Breezy Blair MD (02/28/2017 8:44 PM) DICTATED and SIGNED BY: BREEZY BLAIR MD DATE: 02/28/172038 Course & Med Decision Making Course & Med Decision Making Patient seems to have some pain issues. I did not have time to look outpatient but it appears that she has had 21 CT scans for her chronic abdominal pain. Patient is able to tolerate fluids by mouth with no difficulty and she is in no obvious distress with unremarkable workup so she'll be discharged in stable condition with recommendations for PCP and GI follow-up. Patient aware and agreeable with plan. Dragon Disclaimer Dragon Disclaimer This electronic medical record was generated, in whole or in part, using a voice recognition dictation system. Departure Departure Impression: Primary Impression: Abdominal pain, chronic, left lower quadrant Additional Impression: Nausea and vomiting in adult Disposition: 01 HOME, SELF-CARE Condition: GOOD Referrals: PIERCE MARTINO MD (PCP) Patient Instructions: Abdominal Pain (Nonspecific) Scripts Hydrocodone/Apap 5-325 (NORCO 5-325 TABLET) 1 Each Tablet 1 TAB PO PRN Q6HRS Y for PAIN, #10 TAB 0 Refills Prov: JODY ROTH DO 02/28/17 Problem Qualifiers JODY ROTH DO Feb 28, 2017 20:59
[2017-02-28] MEDS ORDERED: KETOROLAC TROMETHAMINE 30 MG/ML INJ. IV ONE (21:15)
[2017-02-28] MEDS ORDERED: PROMETHAZINE 12.5 MG in IV NORMAL SALINE 50ML 50 ML IV ONE (21:15)
[2017-02-28] MEDS ORDERED: HYDROmorphone 2 MG/ML VIAL IV ONE (21:15)
[2017-02-28 21:32] VITALS: BP 141/83
[2017-02-28] MEDS ORDERED: HYDR-971 PO (21:54)
== END 2017-02-28 22:11 | disposition home or self-care (01) ==
LOC: ER 16:53
DX: G89.29 Other chronic pain (principal); R10.13 Epigastric pain; R10.31 Right lower quadrant pain; R11.2 Nausea with vomiting, unspecified; K58.9 Irritable bowel syndrome, unspecified; Z87.442 Personal history of urinary calculi; Z87.19 Personal history of other diseases of the digestive system; Z90.49 Acquired absence of other specified parts of digestive tract; Z90.710 Acquired absence of both cervix and uterus; Z98.51 Tubal ligation status; Z98.890 Other specified postprocedural states; Z88.8 Allergy status to other drugs, medicaments and biological substances
CPT/HCPCS: 36415; 74177; 80053; 81025; 82274; 82550; 83690; 83735; 85027; 85610; 85730; 86850; 86900; 86901; C9113; G0480; G0481; J1170; J1885; J2270; J2405; J2550; J7030; Q9967; 96361; 96365; 96375; 99285-25

== ENCOUNTER 2017-04-04 19:32 | Emergency (ER) | payer OTHER ==
[~2017-04-04] VITALS: Ht 162.6 cm; Wt 90.7 kg
[~2017-04-04 19:32] MED LIST changes: +HYDR-971 PO
[2017-04-04] MEDS ORDERED: IV NORMAL SALINE 1000ML BAG 1,000 ML IV SCH (19:44)
[2017-04-04] MEDS ORDERED: 0.9 % SODIUM CHLORIDE 10 ML DISP.SYRIN. IV PRN (19:45)
[2017-04-04] MEDS ORDERED: ONDANSETRON PF 4 MG/2 ML VIAL. IV ONE ×2 (19:45→22:00)
[2017-04-04] MEDS ORDERED: HYDROmorphone 2 MG/ML VIAL IV/SQ PRN (19:45)
[2017-04-04 20:04] LABS: BILIRUBIN,URINE NEGATIVE (NEG); GLUCOSE,URINE NEGATIVE (NEG); NITRITE,URINE NEGATIVE (NEG); PROTEIN,URINE NEGATIVE (NEG-TRACE); UROBILINOGEN,URINE 0.2 mg/dL (0.2 mg/dL)
[2017-04-04 20:04] LABS: BASO % 1 % (0-3); EOS % 5 % (0-3); HEMOGLOBIN 12.4 g/dL (12.0-15.5); LYMPH # 2.5 x10^3/uL (1.0-4.8); LYMPH % 28 % (24-48); MEAN CORPUSCULAR HEMOGLOBIN 28 pg (25-35); MEAN CORPUSCULAR HGB CONC 33 g/dL (31-37); MEAN CORPUSCULAR VOLUME 85 fL (79-100); MONO % 8 % (0-9); NEUT % 58 % (31-73); PLATELET COUNT 352 x10^3/uL (140-400); WHITE BLOOD COUNT 9.1 x10^3/uL (4.0-11.0)
[2017-04-04 20:12] LABS: BACTERIA,URINE FEW /HPF (0-FEW); RBC,URINE 0 /HPF (0-2); SQUAMOUS EPITHELIAL CELL,UR MOD /LPF; WBC,URINE 0 /HPF (0-4)
[2017-04-04 20:26] LABS: CALCIUM 8.6 mg/dL (8.5-10.1); CREATININE 0.6 mg/dL (0.6-1.0); GFR 115.1; POTASSIUM 3.8 mmol/L (3.5-5.1)
[2017-04-04 20:32] LABS: ALBUMIN 3.3 g/dL (3.4-5.0); ALBUMIN/GLOBULIN RATIO 0.9 (1.0-1.7); TOTAL BILIRUBIN 0.1 mg/dL (0.2-1.0); TOTAL PROTEIN 6.9 g/dL (6.4-8.2)
[2017-04-04] MEDS ORDERED: IOHEXOL 300 MG/ML 75 ML VIAL IV ONE (21:00)
--- NOTE | 2017-04-04 21:49 | RAD ---
CT SCAN OF THE ABDOMEN AND PELVIS WITH IV CONTRAST. History: Left lower quadrant abdominal pain and fever Comparison:February 28, 2017. Procedure: Contiguous axial images of the abdomen and pelvis were performed after the administration of 75 cc of Isovue 370 IV contrast and without oral contrast. CT Abdomen with contrast: Findings: Liver: Unremarkable Spleen: Unremarkable Pancreas: Fatty Adrenal Glands: Unremarkable Kidneys: Unremarkable There are multiple small mesenteric lymph nodes on the right. There is no free air. There is no free fluid. Impression: No acute findings. End Impression CT Pelvis with Contrast: Findings: The urinary bladder appears normal. There is no free fluid. There is no lymphadenopathy. The appendix is not seen. Impression: No acute findings. The patient has had 14 in the last 4 years. The emergency department physician has been informed of the patient's excessive CTs. PQRS Compliance Statement: One or more of the following individualized dose reduction techniques were utilized for this examination: 1. Automated exposure control 2. Adjustment of the mA and/or kV according to patient size 3. Use of iterative reconstruction technique Electronically signed by: Demarco Lebron III, MD (04/04/2017 9:46 PM) [facility]
--- NOTE | 2017-04-04 21:55 | PHYS DOC ---
Past Medical History Past Medical History: Diverticulosis, IBS, Kidney Stone, Other Additional Past Medical Histor: Ischemic colitis, dumping syndrome, prolapse bladder and rectum Past Surgical History: Cholecystectomy, Gastric Bypass, Hysterectomy, Tubal ligation, Other Additional Past Surgical Histo: bladder x3, vag lift, low back sx NOS, cystoscopy w/ stent Additional Information: 0.5 PPD A WEEK Alcohol Use: Occasionally Drug Use: None Adult General Chief Complaint Chief Complaint: NAUSEA/VOMITING/DIARRHA HPI HPI This is a pleasant 32-year-old female with history of chronic abdominal pain who presents with a 16 hour history of nausea vomiting diarrhea. She's had a questionable history of ischemic colitis diagnosed on colonoscopy by GI She has had 2 episodes of nausea vomiting to count, she has to many episodes of diarrhea to count. It is water liquidy in nature without blood in her stool but there is little streaks of blood in her vomit. She's been admitted and scoped before for Suzanne-Nance tear. Colonoscopies before and told she has diverticulosis. She is worried with her subjective fevers and chills and her left lower quadrant abdominal pain that she's having diverticulitis. She is not any documented fevers but she has had chills. She denies any UTI symptoms, she denies any sick contacts relatively country or recent antibiotics. She denies any trauma, denies any handling of poultry or reptiles. Patient denies any travel outside the country Review of Systems Review of Systems Constitutional: Denies fever or chills [] Eyes: Denies change in visual acuity, redness, or eye pain [] HENT: Denies nasal congestion or sore throat [] Respiratory: Denies cough or shortness of breath [] Cardiovascular: No additional information not addressed in HPI [] GI: Complains of abdominal pain with nausea and vomiting and diarrhea with slight streaks of blood. : Denies dysuria or hematuria [] Musculoskeletal: Denies back pain or joint pain [] Integument: Denies rash or skin lesions [] Neurologic: Denies headache, focal weakness or sensory changes [] Endocrine: Denies polyuria or polydipsia [] Current Medications Current Medications Current Medications Medications (Trade) Dose Ordered Sig/Too Start Time Stop Time Status Last Admin Dose Admin Fentanyl Citrate (Fentanyl 2ml Vial) 50 mcg 1X ONCE 04/04/17 22:00 04/04/17 22:01 UNV Hydromorphone HCl (Dilaudid) 1 mg PRN Q15MIN PRN 04/04/17 19:45 04/05/17 19:44 04/04/17 20:06 1 MG Iohexol (Omnipaque 300 Mg/ml) 75 ml 1X ONCE 04/04/17 21:00 04/04/17 21:01 DC 04/04/17 21:21 75 ML Ondansetron HCl (Zofran) 4 mg 1X ONCE 04/04/17 22:00 04/04/17 22:01 UNV Sodium Chloride (Normal Saline Flush) 10 ml QSHIFT PRN 04/04/17 19:45 04/04/17 20:05 10 ML Allergies Allergies Allergies Coded Allergies Type Severity Reaction Last Updated Verified metronidazole Allergy Intermediate Hives 11/11/14 Yes Physical Exam Physical Exam Patient's vital signs reviewed patient noted to be hypertensive. Constitutional: Well developed, well nourished, no acute distress, non-toxic appearance. [] HENT: Normocephalic, atraumatic, bilateral external ears normal, oropharynx moist, no oral exudates, nose normal. [] Eyes: PERRLA, EOMI, conjunctiva normal, no discharge. [] Neck: Normal range of motion, no tenderness, supple, no stridor. [] Cardiovascular:Heart rate regular rhythm, no murmur [] Lungs & Thorax: Bilateral breath sounds clear to auscultation [] Abdomen: She has increased bowel sounds with global tenderness to palpation in all quadrants. No pulsatile masses no guarding rebound or organomegaly. No Steven's or McBurney's point tenderness palpation. Skin: Warm, dry, no erythema, no rash. [] Back: No tenderness, no CVA tenderness. [] Extremities: No tenderness, no cyanosis, no clubbing, ROM intact, no edema. [] Neurologic: Alert and oriented X 3, normal motor function, normal sensory function, no focal deficits noted. [] Psychologic: Affect normal, judgement normal, mood normal. [] Current Patient Data Vital Signs Vital Signs Date Time Temp Pulse Resp B/P (MAP) Pulse Ox O2 Delivery O2 Flow Rate FiO2 04/04/17 20:06 20 99 Room Air 04/04/17 19:36 98.1 93 141/92 (108) 98.1 Lab Values Laboratory Tests Test 04/04/17 19:04 04/04/17 19:35 04/04/17 19:55 POC Urine HCG, Qualitative Hcg negative (Negative) Urine Collection Type Unknown Urine Color Yellow Urine Clarity Clear Urine pH 6.0 Urine Specific [place] <=1.005 Urine Protein Negative mg/dL (NEG-TRACE) Urine Glucose (UA) Negative mg/dL (NEG) Urine Ketones (Stick) Negative mg/dL (NEG) Urine Blood Negative (NEG) Urine Nitrite Negative (NEG) Urine Bilirubin Negative (NEG) Urine Urobilinogen Dipstick 0.2 mg/dL (0.2 mg/dL) Urine Leukocyte Esterase Negative (NEG) Urine RBC 0 /HPF (0-2) Urine WBC 0 /HPF (0-4) Urine Squamous Epithelial Cells Mod /LPF Urine Bacteria Few /HPF (0-FEW) White Blood Count 9.1 x10^3/uL (4.0-11.0) Red Blood Count 4.50 x10^6/uL (3.50-5.40) Hemoglobin 12.4 g/dL (12.0-15.5) Hematocrit 38.0 % (36.0-47.0) Mean Corpuscular Volume 85 fL (79-100) Mean Corpuscular Hemoglobin 28 pg (25-35) Mean Corpuscular Hemoglobin Concent 33 g/dL (31-37) Red Cell Distribution Width 17.0 % (11.5-14.5) H Platelet Count 352 x10^3/uL (140-400) Neutrophils (%) (Auto) 58 % (31-73) Lymphocytes (%) (Auto) 28 % (24-48) Monocytes (%) (Auto) 8 % (0-9) Eosinophils (%) (Auto) 5 % (0-3) H Basophils (%) (Auto) 1 % (0-3) Neutrophils # (Auto) 5.3 x10^3uL (1.8-7.7) Lymphocytes # (Auto) 2.5 x10^3/uL (1.0-4.8) Monocytes # (Auto) 0.8 x10^3/uL (0.0-1.1) Eosinophils # (Auto) 0.4 x10^3/uL (0.0-0.7) Basophils # (Auto) 0.0 x10^3/uL (0.0-0.2) Sodium Level 145 mmol/L (136-145) Potassium Level 3.8 mmol/L (3.5-5.1) Chloride Level 109 mmol/L (98-107) H Carbon Dioxide Level 26 mmol/L (21-32) Anion Gap 10 (6-14) Blood Urea Nitrogen 5 mg/dL (7-20) L Creatinine 0.6 mg/dL (0.6-1.0) Estimated GFR (Cockcroft-Gault) 115.1 BUN/Creatinine Ratio 8 (6-20) Glucose Level 64 mg/dL (70-99) L Calcium Level 8.6 mg/dL (8.5-10.1) Total Bilirubin 0.1 mg/dL (0.2-1.0) L Aspartate Amino Transferase (AST) 13 U/L (15-37) L Alanine Aminotransferase (ALT) 18 U/L (14-59) Alkaline Phosphatase 88 U/L (46-116) Total Protein 6.9 g/dL (6.4-8.2) Albumin 3.3 g/dL (3.4-5.0) L Albumin/Globulin Ratio 0.9 (1.0-1.7) L Lipase 84 U/L (73-393) Laboratory Tests 04/04/17 19:55 Laboratory Tests 04/04/17 19:55 EKG EKG [] Radiology/Procedures Radiology/Procedures [] [facility] [address] [place], [place] [id number] IMAGING REPORT Signed PATIENT: DAYTON MONROE ACCOUNT: [id number] : 1985 LOCATION: ER AGE: 32 SEX: F EXAM STATUS: REG ER ORD. PHYSICIAN: LISA DESOUZA MD REASON: diffuse ab pain PROCEDURE: CT ABD PELV W/ IV CONTRST ONLY CT SCAN OF THE ABDOMEN AND PELVIS WITH IV CONTRAST. History: Left lower quadrant abdominal pain and fever Comparison:February 28, 2017. Procedure: Contiguous axial images of the abdomen and pelvis were performed after the administration of 75 cc of Isovue 370 IV contrast and without oral contrast. CT Abdomen with contrast: Findings: Liver: Unremarkable Spleen: Unremarkable Pancreas: Fatty Adrenal Glands: Unremarkable Kidneys: Unremarkable There are multiple small mesenteric lymph nodes on the right. There is no free air. There is no free fluid. Impression: No acute findings. End Impression CT Pelvis with Contrast: Findings: The urinary bladder appears normal. There is no free fluid. There is no lymphadenopathy. The appendix is not seen. Impression: No acute findings. The patient has had 14 in the last 4 years. The emergency department physician has been informed of the patient's excessive CTs. PQRS Compliance Statement: One or more of the following individualized dose reduction techniques were utilized for this examination: 1. Automated exposure control 2. Adjustment of the mA and/or kV according to patient size 3. Use of iterative reconstruction technique Electronically signed by: Maureen Sanchez III, MD (04/04/2017 9:46 PM) [facility] DICTATED and SIGNED BY: MAUREEN SANCHEZ III, MD DATE: 04/04/172133 CC: LISA DESOUZA MD; PIERCE MARTINO MD ~ Course & Med Decision Making Course & Med Decision Making Laboratory Tests Test 04/04/17 19:04 04/04/17 19:35 04/04/17 19:55 Bedside Urine HCG, Qualitative Hcg negative (Negative) Urine Collection Type Unknown Urine Color Yellow Urine Clarity Clear Urine pH 6.0 Urine Specific [place] <=1.005 Urine Protein Negative mg/dL (NEG-TRACE) Urine Glucose (UA) Negative mg/dL (NEG) Urine Ketones (Stick) Negative mg/dL (NEG) Urine Blood Negative (NEG) Urine Nitrite Negative (NEG) Urine Bilirubin Negative (NEG) Urine Urobilinogen Dipstick 0.2 mg/dL (0.2 mg/dL) Urine Leukocyte Esterase Negative (NEG) Urine RBC 0 /HPF (0-2) Urine WBC 0 /HPF (0-4) Urine Squamous Epithelial Cells Mod /LPF Urine Bacteria Few /HPF (0-FEW) White Blood Count 9.1 x10^3/uL (4.0-11.0) Red Blood Count 4.50 x10^6/uL (3.50-5.40) Hemoglobin 12.4 g/dL (12.0-15.5) Hematocrit 38.0 % (36.0-47.0) Mean Corpuscular Volume 85 fL (79-100) Mean Corpuscular Hemoglobin 28 pg (25-35) Mean Corpuscular Hemoglobin Concent 33 g/dL (31-37) Red Cell Distribution Width 17.0 % (11.5-14.5) Platelet Count 352 x10^3/uL (140-400) Neutrophils (%) (Auto) 58 % (31-73) Lymphocytes (%) (Auto) 28 % (24-48) Monocytes (%) (Auto) 8 % (0-9) Eosinophils (%) (Auto) 5 % (0-3) Basophils (%) (Auto) 1 % (0-3) Neutrophils # (Auto) 5.3 x10^3uL (1.8-7.7) Lymphocytes # (Auto) 2.5 x10^3/uL (1.0-4.8) Monocytes # (Auto) 0.8 x10^3/uL (0.0-1.1) Eosinophils # (Auto) 0.4 x10^3/uL (0.0-0.7) Basophils # (Auto) 0.0 x10^3/uL (0.0-0.2) Sodium Level 145 mmol/L (136-145) Chloride Level 109 mmol/L (98-107) Carbon Dioxide Level 26 mmol/L (21-32) Anion Gap 10 (6-14) Blood Urea Nitrogen 5 mg/dL (7-20) Estimated GFR (Cockcroft-Gault) 115.1 BUN/Creatinine Ratio 8 (6-20) Glucose Level 64 mg/dL (70-99) Calcium Level 8.6 mg/dL (8.5-10.1) Total Bilirubin 0.1 mg/dL (0.2-1.0) Aspartate Amino Transf (AST/SGOT) 13 U/L (15-37) Alkaline Phosphatase 88 U/L (46-116) Total Protein 6.9 g/dL (6.4-8.2) Albumin 3.3 g/dL (3.4-5.0) Albumin/Globulin Ratio 0.9 (1.0-1.7) Lipase 84 U/L (73-393) Pertinent Labs and Imaging studies reviewed. (See chart for details) [] Patient's LFTs within normal limits, patient's lipase is normal patient's BUN /creatinine are both normal given the amount of losses that she is explained to me she is doing a great of sitting hydrated. Her anion gap is 10 her carbon dioxide level is 26 which is not limited self to obvious G a GI losses. Her potassium is also normal. At this time waiting for a CAT scan patient is again asking for more pain medications some for nausea. But is also willing to try a trial of dietary challenge. Patient denied discussed at length risk factors for continued CAT scans on a monthly basis. Putting her at increased risk for cancer. She understands that risk and we will try to attempt to reduce the frequency which she receives CAT scans. Dragon Disclaimer Dragon Disclaimer This electronic medical record was generated, in whole or in part, using a voice recognition dictation system. Departure Departure Impression: Primary Impression: Chronic abdominal pain Additional Impressions: Chronic vomiting Diarrhea Disposition: HOME, SELF-CARE Condition: IMPROVED Referrals: PIERCE MARTINO MD (PCP) Patient Instructions: Abdominal Pain, Diarrhea, Nausea and Vomiting Additional Instructions: Please return for any new or increasing symptoms or given any question concerns. Specifically return if you have any fever greater than 102.2. I would advise a follow-up with your GI doctor to continue to manage her chronic abdominal pain and nausea and vomiting. He may have a regional enteritis that will require long-term therapy by GI physician. Scripts Ondansetron (ZOFRAN ODT) 4 Mg Tab.rapdis 4 MG PO BID Y for NAUSEA/VOMITING for 5 Days, #10 TAB Prov: LISA DESOUZA MD 04/04/17 Pantoprazole Sodium (PROTONIX) 40 Mg Tablet.dr 1 TAB PO DAILY, #30 TAB 5 Refills Prov: LISA DESOUZA MD 04/04/17 Dicyclomine Hcl (BENTYL) 10 Mg Capsule 1 CAP PO TID, #30 CAP 3 Refills Prov: LISA DESOUZA MD 04/04/17 Problem Qualifiers LISA DESOUZA MD Apr 04, 2017 21:55
[2017-04-04] MEDS ORDERED: fentaNYL PF VIAL 100 MCG/2 ML VIAL IV ONE (22:00)
[2017-04-04] MEDS ORDERED: ONDA4TAB10 PO (22:03)
[2017-04-04] MEDS ORDERED: DICY10CA53 PO (22:03)
[2017-04-04] MEDS ORDERED: PANT40TA3 PO (22:03)
[2017-04-04] MEDS ORDERED: DIPH1TAB PO (22:06)
[2017-04-04 22:15] VITALS: BP 123/88
== END 2017-04-04 22:30 | disposition home or self-care (01) ==
LOC: ER 19:32
DX: G89.29 Other chronic pain (principal); R10.32 Left lower quadrant pain; R11.2 Nausea with vomiting, unspecified; R50.9 Fever, unspecified; R10.84 Generalized abdominal pain; K58.0 Irritable bowel syndrome with diarrhea; K91.1 Postgastric surgery syndromes; F17.200 Nicotine dependence, unspecified, uncomplicated; I10 Essential (primary) hypertension; Z87.442 Personal history of urinary calculi; Z88.1 Allergy status to other antibiotic agents; Z90.49 Acquired absence of other specified parts of digestive tract; Z90.710 Acquired absence of both cervix and uterus; Z98.51 Tubal ligation status
CPT/HCPCS: 36415; 74177; 80053; 81001; 81025; 83690; 85027; 96361; 96374; 96375; 96376; 99285; J1170; J2405; J3010; J7030; Q9967

== ENCOUNTER 2017-06-02 21:35 | Emergency (ER) | payer OTHER ==
[~2017-06-02 21:35] MED LIST changes: +DICY10CA53 PO; +DIPH1TAB PO; +NAPR-695 PO; -NAPR250T2 PO; +NAPR250T6 PO; -NAPR375T3 PO; +ONDA4TAB10 PO; +PANT40TA3 PO
[2017-06-02 22:39] LABS: BASO # 0.1 x10^3/uL (0.0-0.2); BASO % 1 % (0-3); EOS % 3 % (0-3); HEMATOCRIT 42.5 % (36.0-47.0); LYMPH # 3.4 x10^3/uL (1.0-4.8); LYMPH % 32 % (24-48); MEAN CORPUSCULAR HEMOGLOBIN 29 pg (25-35); MEAN CORPUSCULAR HGB CONC 33 g/dL (31-37); MEAN CORPUSCULAR VOLUME 86 fL (79-100); MONO % 8 % (0-9); NEUT % 57 % (31-73); PLATELET COUNT 419 x10^3/uL (140-400); RED BLOOD COUNT 4.93 x10^6/uL (3.50-5.40); RED CELL DISTRIBUTION WIDTH 17.8 % (11.5-14.5); WHITE BLOOD COUNT 10.6 x10^3/uL (4.0-11.0)
[2017-06-02 22:47] LABS: BILIRUBIN,URINE NEGATIVE (NEG); GLUCOSE,URINE NEGATIVE (NEG); NITRITE,URINE NEGATIVE (NEG); PH,URINE 6.5; PROTEIN,URINE NEGATIVE (NEG-TRACE); UROBILINOGEN,URINE 0.2 mg/dL (0.2 mg/dL)
[2017-06-02 22:51] LABS: CREATININE 0.6 mg/dL (0.6-1.0); GFR 115.1; POTASSIUM 4.2 mmol/L (3.5-5.1)
[2017-06-02 22:52] LABS: BACTERIA,URINE FEW /HPF (0-FEW); RBC,URINE OCC /HPF (0-2); SQUAMOUS EPITHELIAL CELL,UR MOD /LPF
[2017-06-02 22:56] LABS: BARBITURATES NEG (NEG); BENZODIAZEPINES NEG (NEG); CANNABINOIDS NEG (NEG); COCAINE NEG (NEG); METHADONE NEG (NEG); OPIATES POS (NEG); PHENCYCLIDINE NEG (NEG)
[2017-06-02] MEDS ORDERED: IV NORMAL SALINE 1000ML BAG 1,000 ML IV ONE (23:00)
[2017-06-02] MEDS ORDERED: HYDROmorphone 2 MG/ML VIAL IV ONE ×2 (23:00→23:45)
[2017-06-02] MEDS ORDERED: diazePAM 5 MG TABLET PO ONE (23:00)
--- NOTE | 2017-06-02 23:01 | PHYS DOC ---
Past Medical History Past Medical History: Diverticulosis, IBS, Kidney Stone, Other Additional Past Medical Histor: Ischemic colitis, dumping syndrome, prolapse bladder and rectum Past Surgical History: Cholecystectomy, Gastric Bypass, Hysterectomy, Tubal ligation, Other Additional Past Surgical Histo: bladder x3, vag lift, low back sx NOS, cystoscopy w/ stent, pelvic floor Alcohol Use: Occasionally Drug Use: None Adult General Chief Complaint Chief Complaint: MUSCLE SPASM/CRAMP HPI HPI Patient is a 32 year old female with history of diverticulosis, kidney stones, IBS, who presents with muscle cramps that began this afternoon. Patient denies taking any medications including statins that could cause this denies being outdoors for extended periods of time to cause dehydration. She states she has been pushing fluids with no relief. She states the cramps are very painful. Patient denies any injury. Denies any chest pain or shortness of breath. Denies any unilateral leg pain. PCP Dr. Sotomayor Review of Systems Review of Systems Constitutional: Denies fever or chills [] Eyes: Denies change in visual acuity, redness, or eye pain [] HENT: Denies nasal congestion or sore throat [] Respiratory: Denies cough or shortness of breath [] Cardiovascular: No additional information not addressed in HPI [] GI: Denies abdominal pain, nausea, vomiting, bloody stools or diarrhea [] : Denies dysuria or hematuria [] Musculoskeletal: Muscle cramps Integument: Denies rash or skin lesions [] Neurologic: Denies headache, focal weakness or sensory changes [] Endocrine: Denies polyuria or polydipsia [] Current Medications Current Medications Current Medications Medications (Trade) Dose Ordered Sig/Too Start Time Stop Time Status Last Admin Dose Admin Diazepam (Valium) 5 mg 1X ONCE 06/02/17 23:00 06/02/17 23:01 DC 06/02/17 22:46 5 MG Hydromorphone HCl (Dilaudid) 1 mg 1X ONCE 06/02/17 23:00 06/02/17 23:01 DC 06/02/17 22:46 1 MG Sodium Chloride 1,000 ml @ 1,000 mls/hr 1X ONCE 06/02/17 23:00 06/02/17 23:59 06/02/17 22:47 1,000 MLS/HR Allergies Allergies Allergies Coded Allergies Type Severity Reaction Last Updated Verified metronidazole Allergy Intermediate Hives 11/11/14 Yes Physical Exam Physical Exam Constitutional: Well developed, well nourished, no acute distress, non-toxic appearance. [] HENT: Normocephalic, atraumatic, bilateral external ears normal, oropharynx moist, no oral exudates, nose normal. [] Eyes: PERRLA, EOMI, conjunctiva normal, no discharge. [] Neck: Normal range of motion, no tenderness, supple, no stridor. [] Cardiovascular:Heart rate regular rhythm, no murmur [] Lungs & Thorax: Bilateral breath sounds clear to auscultation [] Abdomen: Bowel sounds normal, soft, no tenderness, no masses, no pulsatile masses. [] Skin: Warm, dry, no erythema, no rash. [] Back: No tenderness, no CVA tenderness. [] Extremities: No tenderness, no cyanosis, no clubbing, ROM intact, no edema. Negative bilateral Homans sign Neurologic: Alert and oriented X 3, normal motor function, normal sensory function, no focal deficits noted. [] Psychologic: Affect normal, judgement normal, mood normal. [] Current Patient Data Vital Signs Vital Signs Date Time Temp Pulse Resp B/P (MAP) Pulse Ox O2 Delivery O2 Flow Rate FiO2 06/02/17 21:50 99.6 69 18 95 Room Air 99.6 Lab Values Laboratory Tests Test 06/02/17 22:00 06/02/17 22:25 Urine Collection Type Unknown Urine Color Yellow Urine Clarity Clear Urine pH 6.5 Urine Specific [place] 1.015 Urine Protein Negative mg/dL (NEG-TRACE) Urine Glucose (UA) Negative mg/dL (NEG) Urine Ketones (Stick) Negative mg/dL (NEG) Urine Blood Negative (NEG) Urine Nitrite Negative (NEG) Urine Bilirubin Negative (NEG) Urine Urobilinogen Dipstick 0.2 mg/dL (0.2 mg/dL) Urine Leukocyte Esterase Moderate (NEG) Urine RBC Occ /HPF (0-2) Urine WBC 11-20 /HPF (0-4) Urine Squamous Epithelial Cells Mod /LPF Urine Bacteria Few /HPF (0-FEW) Urine Mucus Mod /LPF Urine Opiates Screen Pos (NEG) Urine Methadone Screen Neg (NEG) Urine Barbiturates Neg (NEG) Urine Phencyclidine Screen Neg (NEG) Urine Amphetamine/Methamphetamine Neg (NEG) Urine Benzodiazepines Screen Neg (NEG) Urine Cocaine Screen Neg (NEG) Urine Cannabinoids Screen Neg (NEG) Urine Ethyl Alcohol Neg (NEG) White Blood Count 10.6 x10^3/uL (4.0-11.0) Red Blood Count 4.93 x10^6/uL (3.50-5.40) Hemoglobin 14.0 g/dL (12.0-15.5) Hematocrit 42.5 % (36.0-47.0) Mean Corpuscular Volume 86 fL (79-100) Mean Corpuscular Hemoglobin 29 pg (25-35) Mean Corpuscular Hemoglobin Concent 33 g/dL (31-37) Red Cell Distribution Width 17.8 % (11.5-14.5) H Platelet Count 419 x10^3/uL (140-400) H Neutrophils (%) (Auto) 57 % (31-73) Lymphocytes (%) (Auto) 32 % (24-48) Monocytes (%) (Auto) 8 % (0-9) Eosinophils (%) (Auto) 3 % (0-3) Basophils (%) (Auto) 1 % (0-3) Neutrophils # (Auto) 6.0 x10^3uL (1.8-7.7) Lymphocytes # (Auto) 3.4 x10^3/uL (1.0-4.8) Monocytes # (Auto) 0.8 x10^3/uL (0.0-1.1) Eosinophils # (Auto) 0.3 x10^3/uL (0.0-0.7) Basophils # (Auto) 0.1 x10^3/uL (0.0-0.2) Sodium Level 143 mmol/L (136-145) Potassium Level 4.2 mmol/L (3.5-5.1) Chloride Level 104 mmol/L (98-107) Carbon Dioxide Level 29 mmol/L (21-32) Anion Gap 10 (6-14) Blood Urea Nitrogen 9 mg/dL (7-20) Creatinine 0.6 mg/dL (0.6-1.0) Estimated GFR (Cockcroft-Gault) 115.1 BUN/Creatinine Ratio 15 (6-20) Glucose Level 86 mg/dL (70-99) Calcium Level 9.0 mg/dL (8.5-10.1) Total Bilirubin 0.2 mg/dL (0.2-1.0) Aspartate Amino Transferase (AST) 25 U/L (15-37) Alanine Aminotransferase (ALT) 34 U/L (14-59) Alkaline Phosphatase 90 U/L (46-116) Creatine Kinase 143 U/L (26-192) Myoglobin 22 ng/mL (9-82) Total Protein 8.1 g/dL (6.4-8.2) Albumin 4.0 g/dL (3.4-5.0) Albumin/Globulin Ratio 1.0 (1.0-1.7) Lipase 117 U/L (73-393) Ethyl Alcohol Level < 10 mg/dL (0-10) Laboratory Tests 06/02/17 22:25 Laboratory Tests 06/02/17 22:25 EKG EKG [] Radiology/Procedures Radiology/Procedures [] Course & Med Decision Making Course & Med Decision Making Pertinent Labs and Imaging studies reviewed. (See chart for details) This is a 32-year-old female patient presenting to the ED today with muscle cramps that began this afternoon. Patient does not take any statins. CBC with no acute findings. CMP, CK, myoglobin were normal. Patient is in no distress. She was given a liter of fluid. I walked to her room to give her results. She was on her phone in no distress smiling and talking. She was discharged with instructions to follow-up with Dr. Sotomayor her PCP on Monday. Instructed to push fluids. She has a muscle relaxant and pain medicine at home, encouraged her to continue taking them. Offnote patient is well known to this ED for chronic pain complaints. Dragon Disclaimer Dragon Disclaimer This electronic medical record was generated, in whole or in part, using a voice recognition dictation system. Departure Departure Impression: Primary Impression: Muscle cramps Disposition: HOME, SELF-CARE Condition: STABLE Referrals: PIERCE MARTINO MD (PCP) follow up on Monday Patient Instructions: Muscle Cramps Additional Instructions: You were seen for muscle cramps. We highly recommend you continue taking a muscle relaxers and pain medicines at home. Push fluids. Contact your doctor on Monday and follow-up. CIELO MCDONALD APRN Jun 02, 2017 23:01
[2017-06-02 23:08] LABS: TOTAL BILIRUBIN 0.2 mg/dL (0.2-1.0); TOTAL PROTEIN 8.1 g/dL (6.4-8.2)
[2017-06-02 23:30] VITALS: BP 162/86
== END 2017-06-02 23:49 | disposition home or self-care (01) ==
LOC: ER 21:35
DX: R25.2 Cramp and spasm (principal); K58.9 Irritable bowel syndrome, unspecified; Z87.442 Personal history of urinary calculi; Z90.49 Acquired absence of other specified parts of digestive tract; Z90.710 Acquired absence of both cervix and uterus; Z98.51 Tubal ligation status; Z88.8 Allergy status to other drugs, medicaments and biological substances; Z98.890 Other specified postprocedural states
CPT/HCPCS: 36415; 80053; 80307; 81001; 82550; 83690; 83874; 85025; 96361; 96374; 96376; 99285; G0480; J1170; J7030; G0479

== ENCOUNTER 2017-09-06 14:49 | Emergency (ER) | payer OTHER ==
[~2017-09-06] VITALS: Ht 162.6 cm; Wt 85.1 kg
[2017-09-06 15:02] VITALS: BP 139/74
--- NOTE | 2017-09-06 15:27 | PHYS DOC ---
Past Medical History Past Medical History: Diverticulosis, IBS, Kidney Stone, Other Additional Past Medical Histor: Ischemic colitis, dumping syndrome, prolapse bladder and rectum Past Surgical History: Cholecystectomy, Gastric Bypass, Hysterectomy, Tubal ligation, Other Additional Past Surgical Histo: bladder x3, vag lift, low back sx NOS, cystoscopy w/ stent, pelvic floor, Alcohol Use: Occasionally Drug Use: None Adult General Chief Complaint Chief Complaint: SORE THROAT HPI HPI Patient is a 32 year old female presents to the emergency department with a history of sore throat and white spot in her mouth since (6 days ago). Patient states the pain has become worse in which she is having increase pain with swallowing. Patient thinks she may have had fever but did not take her temperature. She denies shortness of breath or difficulty breathing. Denies cough, congestion. Review of Systems Review of Systems Constitutional: Denies fever or chills [] Eyes: Denies change in visual acuity, redness, or eye pain [] HENT: Denies nasal congestion C/o sore throat with white spots on her tongue and cheek [] Respiratory: Denies cough or shortness of breath [] Cardiovascular: No additional information not addressed in HPI [] GI: Denies abdominal pain, nausea, vomiting, bloody stools or diarrhea [] : Denies dysuria or hematuria [] Musculoskeletal: Denies back pain or joint pain [] Integument: Denies rash or skin lesions [] Neurologic: Denies headache, focal weakness or sensory changes [] Endocrine: Denies polyuria or polydipsia [] All other systems were reviewed and found to be within normal limits, except as documented in this note. Current Medications Current Medications Current Medications Medications (Trade) Dose Ordered Sig/Too Start Time Stop Time Status Last Admin Dose Admin Lidocaine HCl (Viscous Lidocaine) 15 ml 1X ONCE 09/06/17 15:30 09/06/17 15:31 DC Allergies Allergies Allergies Coded Allergies Type Severity Reaction Last Updated Verified metronidazole Allergy Intermediate Hives 11/11/14 Yes Physical Exam Physical Exam Constitutional: Well developed, well nourished, no acute distress, non-toxic appearance. [] HENT: Normocephalic, atraumatic, bilateral external ears normal, oropharynx moist, no oral exudates, nose normal. Bilateral TM normal, throat without erythema of exudate. Left anterior cervical adenopathy noted. Eyes: PERRLA, EOMI, conjunctiva normal, no discharge. [] Neck: Normal range of motion, no tenderness, supple, no stridor. [] Cardiovascular:Heart rate regular rhythm, no murmur [] Lungs & Thorax: Bilateral breath sounds clear to auscultation [] Skin: Warm, dry, no erythema, no rash. [] Extremities: No tenderness, no cyanosis, no clubbing, ROM intact, no edema. [] Neurologic: Alert and oriented X 3, normal motor function, normal sensory function, no focal deficits noted. [] Psychologic: Affect normal, judgement normal, mood normal. [] Current Patient Data Vital Signs Vital Signs Date Time Temp Pulse Resp B/P (MAP) Pulse Ox O2 Delivery O2 Flow Rate FiO2 09/06/17 15:02 98.6 110 18 97 Room Air 98.6 EKG EKG [] Radiology/Procedures Radiology/Procedures [] Course & Med Decision Making Course & Med Decision Making Pertinent Labs and Imaging studies reviewed. (See chart for details) Rapid strep was negative. Patient was provided with viscous lidocaine here in the emergency department. She'll be discharged home with nystatin as swish and swallow with a prescription for viscous lidocaine to help with swelling. Patient wasn't provided with discharge instructions in regards to oral candidemia. Patient was also instructed to drink plenty of fluids. She may also take Tylenol or ibuprofen for pain and discomfort. Patient will be discharged home in stable condition signs and symptoms return back to the emergency department has been provided. All questions and concerns been answered at the patients bedside. [] Dragon Disclaimer Dragon Disclaimer This electronic medical record was generated, in whole or in part, using a voice recognition dictation system. Departure Departure Impression: Primary Impression: Oral darius Disposition: HOME, SELF-CARE Condition: STABLE Referrals: PIERCE MARTINO MD (PCP) Patient Instructions: Thrush, Adult, [id number] Additional Instructions: Activity as tolerated. Medications as prescribed. Tylenol or ibuprofen for fever chills or generalized body aches and discomfort. Drink plenty of fluids. Follow-up through primary care physician in the next 5-7 days. Return back to emergency department for signs and symptoms become worse. SHARON DOMINGUEZ [employer]ISTANT [employer] Sep 06, 2017 15:27
[2017-09-06] MEDS ORDERED: LIDOCAINE 2% VISCOUS 15 ML SOLUTION. SWSW ONE (15:30)
[2017-09-07 07:43] LABS: NEGATIVE OBC STREP NEG; POSITIVE OBC STREP POS
== END 2017-09-06 15:55 | disposition home or self-care (01) ==
LOC: ER 14:49
DX: B37.0 Candidal stomatitis (principal); K58.9 Irritable bowel syndrome, unspecified; Z88.8 Allergy status to other drugs, medicaments and biological substances
CPT/HCPCS: 87070; 87880; 99283

== ENCOUNTER 2017-11-08 17:27 | Emergency (ER) | payer OTHER ==
[2017-11-08 18:46] LABS: BILIRUBIN,URINE NEGATIVE (NEG); CLARITY,URINE CLEAR; COLOR,URINE YELLOW; GLUCOSE,URINE NEGATIVE (NEG); NITRITE,URINE NEGATIVE (NEG); PH,URINE 6.5; PROTEIN,URINE NEGATIVE (NEG-TRACE); UROBILINOGEN,URINE 0.2 mg/dL (0.2 mg/dL)
[2017-11-08 18:55] LABS: BACTERIA,URINE FEW /HPF (0-FEW); RBC,URINE 0 /HPF (0-2); SQUAMOUS EPITHELIAL CELL,UR MOD /LPF; WBC,URINE 0 /HPF (0-4)
[2017-11-08 18:58] LABS: ADD MAN DIFF? NO
[2017-11-08] MEDS: ONDANSETRON PF 4 MG/2 ML VIAL. IV ×4 (19:00)
[2017-11-08] MEDS: KETOROLAC 30 MG/ML INJ. IV ×2 (19:02)
[2017-11-08 19:04] LABS: BASO % 1 % (0-3); EOS # 0.1 x10^3/uL (0.0-0.7); EOS % 1 % (0-3); HEMATOCRIT 37.1 % (36.0-47.0); HEMOGLOBIN 12.5 g/dL (12.0-15.5); LYMPH # 2.5 x10^3/uL (1.0-4.8); LYMPH % 27 % (24-48); MEAN CORPUSCULAR HEMOGLOBIN 28 pg (25-35); MEAN CORPUSCULAR HGB CONC 34 g/dL (31-37); MEAN CORPUSCULAR VOLUME 84 fL (79-100); MONO # 0.4 x10^3/uL (0.0-1.1); MONO % 4 % (0-9); NEUT # 6.2 x10^3uL (1.8-7.7); NEUT % 67 % (31-73); PLATELET COUNT 409 x10^3/uL (140-400); RED BLOOD COUNT 4.44 x10^6/uL (3.50-5.40); RED CELL DISTRIBUTION WIDTH 17.2 % (11.5-14.5); WHITE BLOOD COUNT 9.3 x10^3/uL (4.0-11.0)
[2017-11-08 19:13] LABS: ANION GAP 13 (6-14); BLOOD UREA NITROGEN 7 mg/dL (7-20); BUN/CREATININE RATIO 12 (6-20); CALCIUM 8.8 mg/dL (8.5-10.1); CARBON DIOXIDE 25 mmol/L (21-32); CHLORIDE 103 mmol/L (98-107); CREATININE 0.6 mg/dL (0.6-1.0); GFR 115.1; GLUCOSE 96 mg/dL (70-99); POTASSIUM 3.5 mmol/L (3.5-5.1); SODIUM 141 mmol/L (136-145)
[2017-11-08 19:22] LABS: ALBUMIN 3.5 g/dL (3.4-5.0); ALBUMIN/GLOBULIN RATIO 0.9 (1.0-1.7); ALK PHOS 72 U/L (46-116); ALT (SGPT) 28 U/L (14-59); AST (SGOT) 18 U/L (15-37); C-REACTIVE PROTEIN 0.8 mg/L (0-3.3); TOTAL BILIRUBIN 0.2 mg/dL (0.2-1.0); TOTAL PROTEIN 7.5 g/dL (6.4-8.2)
[2017-11-08] MEDS: HALOPERIDOL LACTATE 5 MG/ML VIAL. IVP ×2 (20:23)
== END 2017-11-08 20:27 | disposition home or self-care (01) ==
LOC: ER 17:27
DX: G89.29 Other chronic pain (principal); R10.32 Left lower quadrant pain; R11.2 Nausea with vomiting, unspecified; R19.7 Diarrhea, unspecified; Z88.1 Allergy status to other antibiotic agents; Z90.710 Acquired absence of both cervix and uterus; Z98.84 Bariatric surgery status; Z90.49 Acquired absence of other specified parts of digestive tract; Z98.51 Tubal ligation status
CPT/HCPCS: 36415; 80053; 81001; 85025; 86140; 96374; 96375; 99284-25; J1630; J1885; J2405

== ENCOUNTER 2018-03-01 19:07 | Emergency (ER) | payer OTHER ==
[2018-03-01 19:43] LABS: BILIRUBIN,URINE NEGATIVE (NEG); CLARITY,URINE CLEAR; COLOR,URINE YELLOW; GLUCOSE,URINE NEGATIVE (NEG); NITRITE,URINE POSITIVE (NEG); PROTEIN,URINE NEGATIVE (NEG-TRACE); UROBILINOGEN,URINE 0.2 mg/dL (0.2 mg/dL)
[2018-03-01 20:04] LABS: BACTERIA,URINE 0 /HPF (0-FEW); SQUAMOUS EPITHELIAL CELL,UR OCC /LPF
[2018-03-02 06:57] LABS: URINE HCG POC HCG NEGATIVE (Negative)
== END 2018-03-01 20:20 | disposition home or self-care (01) ==
LOC: ER 19:07
DX: N39.0 Urinary tract infection, site not specified (principal); K58.9 Irritable bowel syndrome, unspecified; Z87.442 Personal history of urinary calculi; Z90.710 Acquired absence of both cervix and uterus; Z90.49 Acquired absence of other specified parts of digestive tract; Z98.84 Bariatric surgery status; Z88.8 Allergy status to other drugs, medicaments and biological substances
CPT/HCPCS: 81001; 81025; 87491; 87591; 99284

== ENCOUNTER 2018-03-08 14:41 | Emergency (ER) | payer OTHER ==
[2018-03-08 15:23] LABS: CLARITY,URINE CLEAR; COLOR,URINE RED; GLUCOSE,URINE NEGATIVE (NEG); PH,URINE 5.5
[2018-03-08 15:32] LABS: BACTERIA,URINE MANY /HPF (0-FEW); RBC,URINE 0 /HPF (0-2); SQUAMOUS EPITHELIAL CELL,UR MANY /LPF; WBC,URINE OCC /HPF (0-4)
[2018-03-08] MEDS: IV NORMAL SALINE 1000ML BAG 1,000 ML IV (16:00)
[2018-03-08] MEDS: fentaNYL PF VIAL 100 MCG/2 ML VIAL IV (16:00)
[2018-03-08 16:24] LABS: ADD MAN DIFF? NO
[2018-03-08 16:27] LABS: BASO % 0 % (0-3); EOS # 0.3 x10^3/uL (0.0-0.7); EOS % 3 % (0-3); HEMATOCRIT 37.4 % (36.0-47.0); HEMOGLOBIN 12.6 g/dL (12.0-15.5); LYMPH # 1.6 x10^3/uL (1.0-4.8); LYMPH % 17 % (24-48); MEAN CORPUSCULAR HEMOGLOBIN 28 pg (25-35); MEAN CORPUSCULAR HGB CONC 34 g/dL (31-37); MEAN CORPUSCULAR VOLUME 82 fL (79-100); MONO # 0.3 x10^3/uL (0.0-1.1); MONO % 4 % (0-9); NEUT # 7.2 x10^3uL (1.8-7.7); NEUT % 77 % (31-73); PLATELET COUNT 327 x10^3/uL (140-400); RED BLOOD COUNT 4.55 x10^6/uL (3.50-5.40); WHITE BLOOD COUNT 9.4 x10^3/uL (4.0-11.0)
[2018-03-08] MEDS: ONDANSETRON PF 4 MG/2 ML VIAL. IV (16:29)
[2018-03-08] MEDS: methylPREDNISolone SOD SUCC PF 125 MG/2 ML VIAL. IV (16:29)
[2018-03-08 16:41] LABS: ANION GAP 9 (6-14); BLOOD UREA NITROGEN 10 mg/dL (7-20); BUN/CREATININE RATIO 14 (6-20); CALCIUM 8.8 mg/dL (8.5-10.1); CARBON DIOXIDE 26 mmol/L (21-32); CHLORIDE 103 mmol/L (98-107); CREATININE 0.7 mg/dL (0.6-1.0); GFR 95.8; GLUCOSE 146 mg/dL (70-99); POTASSIUM 3.4 mmol/L (3.5-5.1); SODIUM 138 mmol/L (136-145)
[2018-03-08 16:47] LABS: ALBUMIN 3.7 g/dL (3.4-5.0); ALBUMIN/GLOBULIN RATIO 1.2 (1.0-1.7); ALK PHOS 75 U/L (46-116); ALT (SGPT) 23 U/L (14-59); AST (SGOT) 20 U/L (15-37); TOTAL BILIRUBIN 0.5 mg/dL (0.2-1.0); TOTAL PROTEIN 6.9 g/dL (6.4-8.2)
[2018-03-08] MEDS: HALOPERIDOL LACTATE 5 MG/ML VIAL. IVP ×2 (18:20→20:59)
[2018-03-08] MEDS: KETOROLAC 15 MG/ML VIAL. IV ×2 (18:21→20:59)
== END 2018-03-08 21:04 | disposition home or self-care (01) ==
LOC: ER 14:41
DX: G89.29 Other chronic pain (principal); R10.32 Left lower quadrant pain; R11.10 Vomiting, unspecified; K58.9 Irritable bowel syndrome, unspecified; Z87.442 Personal history of urinary calculi; Z90.49 Acquired absence of other specified parts of digestive tract; Z90.710 Acquired absence of both cervix and uterus; Z98.51 Tubal ligation status; Z98.84 Bariatric surgery status; Z88.8 Allergy status to other drugs, medicaments and biological substances
CPT/HCPCS: 36415; 80053; 81001; 85025; 96361; 96374; 96375; 96376; 99284-25; J1630; J1885; J2405; J2930; J3010; J7030

== ENCOUNTER 2018-08-07 14:49 | Emergency (ER) | payer OTHER ==
[~2018-08-07] VITALS: Ht 162.6 cm; Wt 81.2 kg
[~2018-08-07 14:49] MED LIST changes: +CALC625T7 PO; -DICY20TA30; +DICY20TA30 PO; +DOXY100T9 PO; +ESTR2TAB PO; +HYDR-3164 PO; -HYDR-971 PO; +HYOS0.1222 PO; +KETO10TA PO; +LUBI8CAP4 PO; +OMEP40CA5 PO; +PHEN-318 PO; +POLY119P4 PO; +PROM25TA10 PO
[2018-08-07 15:02] VITALS: BP 145/78
[2018-08-07 15:18] LABS: BILIRUBIN,URINE NEGATIVE (NEG); CLARITY,URINE CLEAR; COLOR,URINE YELLOW; NITRITE,URINE NEGATIVE (NEG); PH,URINE 8.5; PROTEIN,URINE NEGATIVE (NEG-TRACE)
[2018-08-07 15:34] LABS: BACTERIA,URINE FEW /HPF (0-FEW); RBC,URINE OCC /HPF (0-2); SQUAMOUS EPITHELIAL CELL,UR MOD /LPF
--- NOTE | 2018-08-07 15:45 | PHYS DOC ---
Past Medical History Past Medical History: Anxiety, Depression, Diverticulosis, IBS, Kidney Stone, Other Additional Past Medical Histor: Ischemic colitis, dumping syndrome, prolapse bladder and rectum Past Surgical History: Cholecystectomy, Gastric Bypass, Hysterectomy, Tubal ligation, Other Additional Past Surgical Histo: bladder x3,vag lift,low back sx NOS,cystoscopy w/ stent,pelvic floor,HEMOR Alcohol Use: None Drug Use: None Adult General Chief Complaint Chief Complaint: PAIN ON URINATION HPI HPI Patient is a 33 year old [f__sex] who presents with [] Review of Systems Review of Systems Constitutional: Denies fever or chills [] Eyes: Denies change in visual acuity, redness, or eye pain [] HENT: Denies nasal congestion or sore throat [] Respiratory: Denies cough or shortness of breath [] Cardiovascular: No additional information not addressed in HPI [] GI: Denies abdominal pain, nausea, vomiting, bloody stools or diarrhea [] : Denies dysuria or hematuria [] Musculoskeletal: Denies back pain or joint pain [] Integument: Denies rash or skin lesions [] Neurologic: Denies headache, focal weakness or sensory changes [] Endocrine: Denies polyuria or polydipsia [] All other systems were reviewed and found to be within normal limits, except as documented in this note. Allergies Allergies Allergies Coded Allergies Type Severity Reaction Last Updated Verified metronidazole Allergy Intermediate Hives 12/05/17 Yes Physical Exam Physical Exam Constitutional: Well developed, well nourished, no acute distress, non-toxic appearance. [] HENT: Normocephalic, atraumatic, bilateral external ears normal, oropharynx moist, no oral exudates, nose normal. [] Eyes: PERRLA, EOMI, conjunctiva normal, no discharge. [] Neck: Normal range of motion, no tenderness, supple, no stridor. [] Cardiovascular:Heart rate regular rhythm, no murmur [] Lungs & Thorax: Bilateral breath sounds clear to auscultation [] Abdomen: Bowel sounds normal, soft, no tenderness, no masses, no pulsatile masses. [] Skin: Warm, dry, no erythema, no rash. [] Back: No tenderness, no CVA tenderness. [] Extremities: No tenderness, no cyanosis, no clubbing, ROM intact, no edema. [] Neurologic: Alert and oriented X 3, normal motor function, normal sensory function, no focal deficits noted. [] Psychologic: Affect normal, judgement normal, mood normal. [] Current Patient Data Vital Signs Vital Signs Date Time Temp Pulse Resp B/P (MAP) Pulse Ox O2 Delivery O2 Flow Rate FiO2 08/07/18 15:02 100.1 115 20 145/78 (100) 96 Room Air 100.1 Lab Values Laboratory Tests Test 08/07/18 15:08 08/07/18 15:11 Urine Collection Type Void Urine Color Yellow Urine Clarity Clear Urine pH 8.5 Urine Specific [place] 1.015 Urine Protein Negative mg/dL (NEG-TRACE) Urine Glucose (UA) Negative mg/dL (NEG) Urine Ketones (Stick) Trace mg/dL (NEG) Urine Blood Negative (NEG) Urine Nitrite Negative (NEG) Urine Bilirubin Negative (NEG) Urine Urobilinogen Dipstick 1.0 mg/dL (0.2 mg/dL) Urine Leukocyte Esterase Negative (NEG) Urine RBC Occ /HPF (0-2) Urine WBC 1-4 /HPF (0-4) Urine Squamous Epithelial Cells Mod /LPF Urine Bacteria Few /HPF (0-FEW) Urine Mucus Mod /LPF POC Urine HCG, Qualitative Hcg negative (Negative) EKG EKG [] Radiology/Procedures Radiology/Procedures [] Course & Med Decision Making Course & Med Decision Making Pertinent Labs and Imaging studies reviewed. (See chart for details) [] Dragon Disclaimer Dragon Disclaimer This electronic medical record was generated, in whole or in part, using a voice recognition dictation system. Departure Departure Impression: Primary Impression: Upper respiratory infection Disposition: 01 HOME, SELF-CARE Condition: STABLE Referrals: PIERCE MARTINO MD (PCP) Patient Instructions: Upper Respiratory Infection, Adult Additional Instructions: You may use [id number] cough and cold medication. Your urine will be sent to culture but did not show any evidence of bacteria or blood. Follow-up with primary care provider in 3 days if not improving or return to the emergency department if worsening. ZORAIDA ROBERTSON APRN Aug 07, 2018 15:45
[2018-08-08] MEDS ORDERED: SULF1TAB24 PO (19:58)
== END 2018-08-07 16:02 | disposition home or self-care (01) ==
LOC: ER 14:49
DX: N39.0 Urinary tract infection, site not specified (principal); H92.02 Otalgia, left ear; K58.9 Irritable bowel syndrome, unspecified; Z87.442 Personal history of urinary calculi; Z98.84 Bariatric surgery status; Z90.49 Acquired absence of other specified parts of digestive tract; Z90.710 Acquired absence of both cervix and uterus; Z98.51 Tubal ligation status; Z95.5 Presence of coronary angioplasty implant and graft; Z88.8 Allergy status to other drugs, medicaments and biological substances
CPT/HCPCS: 81001; 81025; 99283

== ENCOUNTER 2018-08-08 16:01 | Emergency (ER) | payer OTHER ==
[~2018-08-08] VITALS: Ht 162.6 cm; Wt 81.2 kg
[2018-08-08 17:10] LABS: BILIRUBIN,URINE MODERATE (NEG); CLARITY,URINE CLOUDY; NITRITE,URINE NEGATIVE (NEG); PH,URINE 5.5; PROTEIN,URINE NEGATIVE (NEG-TRACE)
[2018-08-08 17:21] LABS: BACTERIA,URINE FEW /HPF (0-FEW); COLOR,URINE AMBER; RBC,URINE 0 /HPF (0-2); SQUAMOUS EPITHELIAL CELL,UR MANY /LPF
[2018-08-08] MEDS ORDERED: MORPHINE SULFATE 4 MG/ML VIAL. IV ONE ×2 (17:45→19:45)
[2018-08-08] MEDS ORDERED: ONDANSETRON PF 4 MG/2 ML VIAL. IV ONE (17:45)
[2018-08-08] MEDS ORDERED: IV NORMAL SALINE 1000ML BAG 1,000 ML IV ONE (17:45)
[2018-08-08 18:33] LABS: BASO % 1 % (0-3); EOS # 0.2 x10^3/uL (0.0-0.7); EOS % 4 % (0-3); HEMATOCRIT 35.6 % (36.0-47.0); HEMOGLOBIN 12.3 g/dL (12.0-15.5); LYMPH # 1.1 x10^3/uL (1.0-4.8); LYMPH % 19 % (24-48); MEAN CORPUSCULAR HEMOGLOBIN 29 pg (25-35); MEAN CORPUSCULAR HGB CONC 34 g/dL (31-37); MEAN CORPUSCULAR VOLUME 84 fL (79-100); MONO # 0.3 x10^3/uL (0.0-1.1); MONO % 6 % (0-9); NEUT % 71 % (31-73); PLATELET COUNT 270 x10^3/uL (140-400); RED BLOOD COUNT 4.26 x10^6/uL (3.50-5.40); RED CELL DISTRIBUTION WIDTH 18.4 % (11.5-14.5); WHITE BLOOD COUNT 5.6 x10^3/uL (4.0-11.0)
[2018-08-08 18:43] LABS: CALCIUM 8.2 mg/dL (8.5-10.1); CREATININE 0.8 mg/dL (0.6-1.0); GFR 82.1; POTASSIUM 3.2 mmol/L (3.5-5.1)
[2018-08-08 18:49] LABS: ALBUMIN 2.9 g/dL (3.4-5.0); ALBUMIN/GLOBULIN RATIO 0.8 (1.0-1.7); TOTAL BILIRUBIN 0.1 mg/dL (0.2-1.0); TOTAL PROTEIN 6.6 g/dL (6.4-8.2)
[2018-08-08 19:26] VITALS: BP 162/72
--- NOTE | 2018-08-08 19:56 | PHYS DOC ---
Past Medical History Past Medical History: Anxiety, Depression, Diverticulosis, IBS, Kidney Stone, Other Additional Past Medical Histor: Ischemic colitis, dumping syndrome, prolapse bladder and rectum Past Surgical History: Cholecystectomy, Gastric Bypass, Hysterectomy, Tubal ligation, Other Additional Past Surgical Histo: bladder x3,vag lift,low back sx NOS,cystoscopy w/ stent,pelvic floor,HEMOR Alcohol Use: None Drug Use: None Adult General Chief Complaint Chief Complaint: ABDOMINAL PAIN HPI HPI Patient is a 33 year old [f__sex] who presents with [] Review of Systems Review of Systems Constitutional: Denies fever or chills [] Eyes: Denies change in visual acuity, redness, or eye pain [] HENT: Denies nasal congestion or sore throat [] Respiratory: Denies cough or shortness of breath [] Cardiovascular: No additional information not addressed in HPI [] GI: Denies abdominal pain, nausea, vomiting, bloody stools or diarrhea [] : Denies dysuria or hematuria [] Musculoskeletal: Denies back pain or joint pain [] Integument: Denies rash or skin lesions [] Neurologic: Denies headache, focal weakness or sensory changes [] Endocrine: Denies polyuria or polydipsia [] All other systems were reviewed and found to be within normal limits, except as documented in this note. Current Medications Current Medications Current Medications Medications (Trade) Dose Ordered Sig/Too Start Time Stop Time Status Last Admin Dose Admin Morphine Sulfate (Morphine Sulfate) 4 mg 1X ONCE 08/08/18 19:45 08/08/18 19:46 DC 08/08/18 19:45 4 MG Ondansetron HCl (Zofran) 4 mg 1X ONCE 08/08/18 17:45 08/08/18 17:46 DC 08/08/18 18:34 4 MG Sodium Chloride 1,000 ml @ 1,000 mls/hr 1X ONCE 08/08/18 17:45 08/08/18 18:44 DC 08/08/18 18:33 1,000 MLS/HR Allergies Allergies Allergies Coded Allergies Type Severity Reaction Last Updated Verified metronidazole Allergy Intermediate Hives 12/05/17 Yes Physical Exam Physical Exam Constitutional: Well developed, well nourished, no acute distress, non-toxic appearance. [] HENT: Normocephalic, atraumatic, bilateral external ears normal, oropharynx moist, no oral exudates, nose normal. [] Eyes: PERRLA, EOMI, conjunctiva normal, no discharge. [] Neck: Normal range of motion, no tenderness, supple, no stridor. [] Cardiovascular:Heart rate regular rhythm, no murmur [] Lungs & Thorax: Bilateral breath sounds clear to auscultation [] Abdomen: Bowel sounds normal, soft, no tenderness, no masses, no pulsatile masses. [] Skin: Warm, dry, no erythema, no rash. [] Back: No tenderness, no CVA tenderness. [] Extremities: No tenderness, no cyanosis, no clubbing, ROM intact, no edema. [] Neurologic: Alert and oriented X 3, normal motor function, normal sensory function, no focal deficits noted. [] Psychologic: Affect normal, judgement normal, mood normal. [] Current Patient Data Vital Signs Vital Signs Date Time Temp Pulse Resp B/P (MAP) Pulse Ox O2 Delivery O2 Flow Rate FiO2 08/08/18 18:36 18 Room Air 08/08/18 18:30 92 126/63 (84) 98 08/08/18 16:32 99.0 99.0 Lab Values Laboratory Tests Test 08/08/18 16:21 08/08/18 16:23 08/08/18 18:27 Urine Collection Type Unknown Urine Color April Urine Clarity Cloudy Urine pH 5.5 Urine Specific [place] >=1.030 Urine Protein Negative mg/dL (NEG-TRACE) Urine Glucose (UA) Negative mg/dL (NEG) Urine Ketones (Stick) Trace mg/dL (NEG) Urine Blood Negative (NEG) Urine Nitrite Negative (NEG) Urine Bilirubin Moderate (NEG) Urine Urobilinogen Dipstick 1.0 mg/dL (0.2 mg/dL) Urine Leukocyte Esterase Small (NEG) Urine RBC 0 /HPF (0-2) Urine WBC 5-10 /HPF (0-4) Urine Squamous Epithelial Cells Many /LPF Urine Calcium Phosphate Crystals /HPF Urine Bacteria Few /HPF (0-FEW) Urine Mucus Marked /LPF POC Urine HCG, Qualitative Hcg negative (Negative) White Blood Count 5.6 x10^3/uL (4.0-11.0) Red Blood Count 4.26 x10^6/uL (3.50-5.40) Hemoglobin 12.3 g/dL (12.0-15.5) Hematocrit 35.6 % (36.0-47.0) L Mean Corpuscular Volume 84 fL (79-100) Mean Corpuscular Hemoglobin 29 pg (25-35) Mean Corpuscular Hemoglobin Concent 34 g/dL (31-37) Red Cell Distribution Width 18.4 % (11.5-14.5) H Platelet Count 270 x10^3/uL (140-400) Neutrophils (%) (Auto) 71 % (31-73) Lymphocytes (%) (Auto) 19 % (24-48) L Monocytes (%) (Auto) 6 % (0-9) Eosinophils (%) (Auto) 4 % (0-3) H Basophils (%) (Auto) 1 % (0-3) Neutrophils # (Auto) 4.0 x10^3uL (1.8-7.7) Lymphocytes # (Auto) 1.1 x10^3/uL (1.0-4.8) Monocytes # (Auto) 0.3 x10^3/uL (0.0-1.1) Eosinophils # (Auto) 0.2 x10^3/uL (0.0-0.7) Basophils # (Auto) 0.0 x10^3/uL (0.0-0.2) Sodium Level 140 mmol/L (136-145) Potassium Level 3.2 mmol/L (3.5-5.1) L Chloride Level 105 mmol/L (98-107) Carbon Dioxide Level 23 mmol/L (21-32) Anion Gap 12 (6-14) Blood Urea Nitrogen 10 mg/dL (7-20) Creatinine 0.8 mg/dL (0.6-1.0) Estimated GFR (Cockcroft-Gault) 82.1 BUN/Creatinine Ratio 13 (6-20) Glucose Level 115 mg/dL (70-99) H Calcium Level 8.2 mg/dL (8.5-10.1) L Total Bilirubin 0.1 mg/dL (0.2-1.0) L Aspartate Amino Transferase (AST) 21 U/L (15-37) Alanine Aminotransferase (ALT) 23 U/L (14-59) Alkaline Phosphatase 75 U/L (46-116) Total Protein 6.6 g/dL (6.4-8.2) Albumin 2.9 g/dL (3.4-5.0) L Albumin/Globulin Ratio 0.8 (1.0-1.7) L Laboratory Tests 08/08/18 18:27 Laboratory Tests 08/08/18 18:27 EKG EKG [] Radiology/Procedures Radiology/Procedures [] Course & Med Decision Making Course & Med Decision Making Pertinent Labs and Imaging studies reviewed. (See chart for details) [] Dragon Disclaimer Dragon Disclaimer This electronic medical record was generated, in whole or in part, using a voice recognition dictation system. Departure Departure Impression: Primary Impression: UTI (urinary tract infection) Disposition: HOME, SELF-CARE Condition: STABLE Referrals: PIERCE MARTINO MD (PCP) Patient Instructions: Urinary Tract Infection, [id number] Additional Instructions: Fill the prescription and use as directed. Increase clear fluids, avoid bladder irritants such as caffeine, carbonation, and spicy foods. Follow-up with her primary care doctor next week. Return to the emergency room if symptoms worsen. Scripts Sulfamethoxazole/Trimethoprim (BACTRIM DS TABLET) 1 Each Tablet 1 TAB PO BID for 3 Days, #6 TAB Prov: SONI CRUM DIRECTOR PHARMACY SERVICES 08/08/18 Problem Qualifiers Primary Impression: UTI (urinary tract infection) Urinary tract infection type: site unspecified Hematuria presence: without hematuria Qualified Codes: N39.0 - Urinary tract infection, site not specified SONI CRUM DIRECTOR PHARMACY SERVICES Aug 08, 2018 19:56
[2018-08-08] MEDS ORDERED: SULF1TAB24 PO (19:58)
--- NOTE | 2018-08-13 10:33 | PDOC ---
FOLLOW UP 08/13/2018 a prescription for Macrobid was called to the [facility] at and [facility] ZORAIDA ROBERTSON APRN Aug 13, 2018 10:33
== END 2018-08-08 20:09 | disposition home or self-care (01) ==
LOC: ER 16:01
DX: N39.0 Urinary tract infection, site not specified (principal); K58.9 Irritable bowel syndrome, unspecified; Z98.84 Bariatric surgery status; Z90.49 Acquired absence of other specified parts of digestive tract; Z90.710 Acquired absence of both cervix and uterus; Z98.51 Tubal ligation status; Z98.890 Other specified postprocedural states; Z95.5 Presence of coronary angioplasty implant and graft; Z87.19 Personal history of other diseases of the digestive system; Z88.8 Allergy status to other drugs, medicaments and biological substances
CPT/HCPCS: 36415; 80053; 81001; 81025; 85025; 87086; 96374; 96375; 96376; 99283; J2270; J2405; J7030

== ENCOUNTER 2019-03-11 01:49 | Inpatient (IN) | payer OTHER ==
[~2019-03-11] VITALS: Ht 162.6 cm; Wt 89.8 kg
[~2019-03-11 01:49] MED LIST changes: -HYDR-2758 PO; +HYDR-2761 PO
[2019-03-11] MEDS ORDERED: NALOXONE 2 MG/2 ML DISP.SYRIN. ONE (02:00)
[2019-03-11] MEDS ORDERED: SUCCINYLCHOLINE 200 MG/10 ML VIAL. IV ONE (02:00)
[2019-03-11] MEDS ORDERED: IV NORMAL SALINE 1000ML BAG 1,000 ML IV ONE ×2 (02:00→07:00)
[2019-03-11] MEDS ORDERED: ETOMIDATE 20 MG/10 ML VIAL. IV ONE (02:00)
[2019-03-11] MEDS ORDERED: PROPOFOL 100 ML IV PRN (02:00)
[2019-03-11] MEDS ORDERED: PROPOFOL 100 ML IV ONE ×3 (02:01→05:15)
[2019-03-11] MEDS: PROPOFOL 10 MG/ML (20ML) VIAL. IV ONE (02:06)
[2019-03-11] MEDS ORDERED: NALOXONE 0.4 MG/ML VIAL. IV ONE (02:15)
--- NOTE | 2019-03-11 02:17 | PHYS DOC ---
Past Medical History Past Medical History: Anxiety, Depression, Diverticulosis, IBS, Kidney Stone, Other Additional Past Medical Histor: Ischemic colitis, dumping syndrome, prolapse bladder and rectum Past Surgical History: Cholecystectomy, Gastric Bypass, Hysterectomy, Tubal ligation, Other Additional Past Surgical Histo: bladder x3,vag lift,low back sx NOS,cystoscopy w/ stent,pelvic floor,HEMOR Alcohol Use: None Drug Use: None Adult General Chief Complaint Chief Complaint: OVERDOSE HPI HPI Patient is a 34 year old F BIBA WTIH CC OF OVERDOSE UNKNOWN REASON PROMETHAZINE LOW GCS NOTED. HX LIMITED BY MENTAL STATUS Review of Systems Review of Systems WAN BY MENTAL STATUS Current Medications Current Medications Current Medications Medications (Trade) Dose Ordered Sig/Too Start Time Stop Time Status Last Admin Dose Admin Etomidate (Amidate) 20 mg 1X ONCE 03/11/19 02:00 03/11/19 02:24 DC 03/11/19 02:02 20 MG Fentanyl Citrate (Fentanyl 2ml Vial) 100 mcg 1X ONCE 03/11/19 03:15 03/11/19 03:16 DC 03/11/19 03:07 100 MCG Lorazepam (Ativan Inj) 2 mg 1X ONCE 03/11/19 02:45 03/11/19 02:46 DC 03/11/19 02:32 2 MG Midazolam HCl (Versed) 5 mg STK-MED ONCE 03/11/19 03:02 03/11/19 03:03 DC Naloxone HCl (Narcan) 0.4 mg 1X ONCE 03/11/19 02:15 03/11/19 02:16 DC 03/11/19 01:57 0.4 MG Propofol 100 ml @ As Directed STK-MED ONCE 03/11/19 03:03 03/11/19 03:04 DC Propofol (Diprivan) 200 mg 1X ONCE 03/11/19 02:30 03/11/19 02:31 DC 03/11/19 02:06 200 MG Sodium Chloride 1,000 ml @ 1,000 mls/hr 1X ONCE 03/11/19 02:00 03/11/19 02:59 DC 03/11/19 02:06 1,000 MLS/HR Succinylcholine Chloride (Anectine) 100 mg 1X ONCE 03/11/19 02:00 03/11/19 02:24 DC 03/11/19 02:02 100 MG Allergies Allergies Allergies Coded Allergies Type Severity Reaction Last Updated Verified metronidazole Allergy Intermediate Hives 12/05/17 Yes Physical Exam Physical Exam Constitutional: Well developed, OBTUNDED HENT: Normocephalic, atraumatic, bilateral external ears normal, oropharynx moist, no oral exudates, nose normal. [] Eyes: PUIPIL 2 MM B/L Neck: Normal range of motion, no tenderness, supple, no stridor. [] CardiovascularTACHYCARDIC Lungs & Thorax: Bilateral breath sounds clear to auscultation [] Abdomen: Bowel sounds normal, soft, no tenderness, no masses, no pulsatile masses. [] Skin: Warm, dry, no erythema, no rash. [] Back: No tenderness, no CVA tenderness. [] Extremities: No tenderness, no cyanosis, no clubbing, ROM intact, no edema. [] Neurologic: GCS 5-6 :E 1 V 1 M 3 OR 4. NOT PROTECTING AIRWAY WELL Current Patient Data Vital Signs Vital Signs Date Time Temp Pulse Resp B/P (MAP) Pulse Ox O2 Delivery O2 Flow Rate FiO2 03/11/19 03:07 100 Ventilator Lab Values Laboratory Tests Test 03/11/19 02:08 03/11/19 02:20 03/11/19 02:56 White Blood Count 8.2 x10^3/uL (4.0-11.0) Red Blood Count 4.81 x10^6/uL (3.50-5.40) Hemoglobin 13.4 g/dL (12.0-15.5) Hematocrit 40.3 % (36.0-47.0) Mean Corpuscular Volume 84 fL (79-100) Mean Corpuscular Hemoglobin 28 pg (25-35) Mean Corpuscular Hemoglobin Concent 33 g/dL (31-37) Red Cell Distribution Width 18.3 % (11.5-14.5) H Platelet Count 402 x10^3/uL (140-400) H Neutrophils (%) (Auto) 55 % (31-73) Lymphocytes (%) (Auto) 38 % (24-48) Monocytes (%) (Auto) 5 % (0-9) Eosinophils (%) (Auto) 1 % (0-3) Basophils (%) (Auto) 1 % (0-3) Neutrophils # (Auto) 4.5 x10^3uL (1.8-7.7) Lymphocytes # (Auto) 3.1 x10^3/uL (1.0-4.8) Monocytes # (Auto) 0.4 x10^3/uL (0.0-1.1) Eosinophils # (Auto) 0.1 x10^3/uL (0.0-0.7) Basophils # (Auto) 0.0 x10^3/uL (0.0-0.2) Prothrombin Time 12.7 SEC (11.7-14.0) Prothrombin Time INR 1.0 (0.8-1.1) Maternal Serum HCG Beta Subunit < 1 mIU/mL (0-5) Sodium Level 146 mmol/L (136-145) H Potassium Level 3.3 mmol/L (3.5-5.1) L Chloride Level 105 mmol/L (98-107) Carbon Dioxide Level 25 mmol/L (21-32) Anion Gap 16 (6-14) H Blood Urea Nitrogen 8 mg/dL (7-20) Creatinine 0.6 mg/dL (0.6-1.0) Estimated GFR (Cockcroft-Gault) 113.8 BUN/Creatinine Ratio 13 (6-20) Glucose Level 132 mg/dL (70-99) H Calcium Level 8.0 mg/dL (8.5-10.1) L Total Bilirubin 0.2 mg/dL (0.2-1.0) Aspartate Amino Transferase (AST) 26 U/L (15-37) Alanine Aminotransferase (ALT) 25 U/L (14-59) Alkaline Phosphatase 91 U/L (46-116) Creatine Kinase 293 U/L (26-192) H ET-Nvj-W-Type Natriuretic Peptide 48 pg/mL (0-124) Total Protein 8.1 g/dL (6.4-8.2) Albumin 3.7 g/dL (3.4-5.0) Albumin/Globulin Ratio 0.8 (1.0-1.7) L Salicylates Level 4.3 mg/dL (2.8-20.0) Salicylate Last Dose Date Salicylate Last Dose Time Acetaminophen Level < 2 mcg/ml (10-30) L Acetaminophen Last Dose Date Acetaminophen Last Dose Time Ethyl Alcohol Level 198 mg/dL (0-10) H O2 Saturation 98 % (92-99) Arterial Blood pH 7.39 (7.35-7.45) Arterial Blood pH (Temp corrected) 7.39 Arterial Blood pCO2 at Patient Temp 39 mmHg (35-46) Arterial Blood pCO2 (Temp correct) 39 mmHg Arterial Blood pO2 at Patient Temp 487 mmHg (85-108) H Arterial Blood pO2 (Temp corrected) 489 mmHg Arterial Blood HCO3 23 mmol/L (21-28) Arterial Blood Base Excess -2 mmol/L (-3-3) FiO2 100 Urine Collection Type Unknown Urine Color Yellow Urine Clarity Clear Urine pH 6.0 Urine Specific [place] 1.010 Urine Protein Negative mg/dL (NEG-TRACE) Urine Glucose (UA) Negative mg/dL (NEG) Urine Ketones (Stick) Negative mg/dL (NEG) Urine Blood Trace (NEG) Urine Nitrite Negative (NEG) Urine Bilirubin Negative (NEG) Urine Urobilinogen Dipstick 1.0 mg/dL (0.2 mg/dL) Urine Leukocyte Esterase Negative (NEG) Urine RBC 6-10 /HPF (0-2) Urine WBC Occ /HPF (0-4) Urine Squamous Epithelial Cells Few /LPF Urine Bacteria 0 /HPF (0-FEW) Urine Mucus Slight /LPF Laboratory Tests 03/11/19 02:08 Laboratory Tests 03/11/19 02:08 EKG EKG [] Interpretation Time: EKG shows a sinus tach rate of 101 QTC 481 QRS 96 Interpretation of blood gas no acidosis. 7.39 PCO2 of 38.5 temp of 99.1. Radiology/Procedures Radiology/Procedures [] Impressions: Head CT pending chest x-ray ET tube is in good position. Course & Med Decision Making Course & Med Decision Making Pertinent Labs and Imaging studies reviewed. (See chart for details) [] Critical care time was 55 minutes exclusive of procedures. SEVERE PROMETHAZINE TOXICITY TEMP 99.[address], AIRWAY PROTECTION LABS PENDING POISON CONTROL: PROMETHAZINE 25 MG, WATCH FOR SEIZURES PROTECT AIRWAY WATCH FOR HYPOTENSION, SUPPORTIVE CARE. GET EKG D/W PRIMARY DOCTOR HOME SUPPORT WORKER FOR ADMIT INTUBATION NOTE: EMERGENT LOW GCS MAC4 GRADE1 VIEW NO COMPLICATIONS CONFIRMED WITH ETCO2 AND BREATHS OUNDS CXR PENDING D/W DR. CROW. Gianna Disclaimer Gianna Disclaimer This electronic medical record was generated, in whole or in part, using a voice recognition dictation system. Departure Departure Impression: Primary Impression: Overdose Disposition: ADMITTED INPATIENT Admitting Physician: Destinee Crow Condition: CRITICAL Referrals: PIERCE MARTINO MD (PCP) DESIRAE HERBERT MD Mar 11, 2019 02:17
[2019-03-11 02:22] LABS: BASE EXCESS ABG -2 mmol/L (-3-3); CORRECTED PCO2 ABG 39 mmHg; CORRECTED PH ABG 7.39; CORRECTED PO2 ABG 489 mmHg; HCO3 ABG 23 mmol/L (21-28); PCO2 ABG 39 mmHg (35-46); PO2 ABG 487 mmHg (85-108); SAT O2 ABG 98 % (92-99)
[2019-03-11 02:33] LABS: BASO % 1 % (0-3); EOS # 0.1 x10^3/uL (0.0-0.7); EOS % 1 % (0-3); HEMATOCRIT 40.3 % (36.0-47.0); HEMOGLOBIN 13.4 g/dL (12.0-15.5); LYMPH # 3.1 x10^3/uL (1.0-4.8); LYMPH % 38 % (24-48); MEAN CORPUSCULAR HEMOGLOBIN 28 pg (25-35); MEAN CORPUSCULAR HGB CONC 33 g/dL (31-37); MEAN CORPUSCULAR VOLUME 84 fL (79-100); MONO # 0.4 x10^3/uL (0.0-1.1); MONO % 5 % (0-9); NEUT # 4.5 x10^3uL (1.8-7.7); NEUT % 55 % (31-73); PLATELET COUNT 402 x10^3/uL (140-400); RED BLOOD COUNT 4.81 x10^6/uL (3.50-5.40); RED CELL DISTRIBUTION WIDTH 18.3 % (11.5-14.5); WHITE BLOOD COUNT 8.2 x10^3/uL (4.0-11.0)
[2019-03-11 02:41] LABS: CREATININE 0.6 mg/dL (0.6-1.0); GFR 113.8; POTASSIUM 3.3 mmol/L (3.5-5.1)
[2019-03-11 02:43] LABS: PROTHROMBIN TIME PATIENT 12.7 SEC (11.7-14.0)
[2019-03-11 02:47] LABS: ALBUMIN 3.7 g/dL (3.4-5.0); ALBUMIN/GLOBULIN RATIO 0.8 (1.0-1.7); TOTAL BILIRUBIN 0.2 mg/dL (0.2-1.0); TOTAL PROTEIN 8.1 g/dL (6.4-8.2)
[2019-03-11 02:51] LABS: ACETAMIN < 2 mcg/ml (10-30); ETHANOL 198 mg/dL (0-10); SALIC 4.3 mg/dL (2.8-20.0)
[2019-03-11] MEDS ORDERED: fentaNYL PF VIAL 100 MCG/2 ML VIAL IV ONE ×2 (03:00→03:15)
[2019-03-11] MEDS ORDERED: MIDAZOLAM HCL/PF 5 MG/5 ML VIAL. ONE (03:02)
[2019-03-11] MEDS ORDERED: MIDAZOLAM HCL/PF 5 MG/5 ML VIAL. IV ONE ×2 (03:15→10:00)
[2019-03-11 03:25] LABS: BILIRUBIN,URINE NEGATIVE (NEG); CLARITY,URINE CLEAR; COLOR,URINE YELLOW; NITRITE,URINE NEGATIVE (NEG); PROTEIN,URINE NEGATIVE (NEG-TRACE)
[2019-03-11 03:27] LABS: FIO2 ABG 100
[2019-03-11 03:35] LABS: BACTERIA,URINE 0 /HPF (0-FEW); SQUAMOUS EPITHELIAL CELL,UR FEW /LPF; WBC,URINE OCC /HPF (0-4)
[2019-03-11 03:42] LABS: BARBITURATES NEG (NEG); BENZODIAZEPINES NEG (NEG); CANNABINOIDS NEG (NEG); COCAINE NEG (NEG); METHADONE NEG (NEG); OPIATES NEG (NEG); PHENCYCLIDINE NEG (NEG)
[2019-03-11 03:43] LABS: AMPHETAMINE/METHAMPHETAMINE NEG (NEG)
--- NOTE | 2019-03-11 05:24 | RAD ---
Chest radiograph 03/11/2019 2:45 AM INDICATION: Altered mental status COMPARISON: November 03, 2016 TECHNIQUE: Supine view the chest is provided. Single view of abdomen is provided. FINDINGS: The cardiomediastinal silhouette is within normal limits. Endotracheal tube terminates 6 mm above the level of the malinda. This may be retracted 2 to 3 cm. There are no pleural effusions. There is no pulmonary vascular congestion. There is no pneumothorax. The lungs are clear. No significant osseous abnormality is identified. Nasogastric tube is identified with the side port above the level of the diaphragm. This may be advanced at least 7 cm. Mild distention of the right colon. No dilated small bowel loops. IMPRESSION: Endotracheal tube terminates 6 mm above the level of the malinda. This may be retracted 2 to 3 cm. Nasogastric tube may be advanced 7 cm. Critical result: Findings discussed with DESIRAE HERBERT at 03/11/2019 5:21 AM. FOR INTERNAL CODING PURPOSES RESULT CODE: (C) Electronically signed by: Consuelo Mckeon MD (03/11/2019 5:21 AM) [facility]
--- NOTE | 2019-03-11 05:30 | RAD ---
RS Compliance Statement: One or more of the following individualized dose reduction techniques were utilized for this examination: 1. Automated exposure control 2. Adjustment of the mA and/or kV according to patient size 3. Use of iterative reconstruction technique CT head without contrast 03/11/2019 5:07 AM INDICATION: Altered mental status COMPARISON: CT head August 31, 2014 TECHNIQUE: Multiple axial CT images of the head were obtained from skull base through the vertex without intravenous contrast. FINDINGS: Head: Ventricles, sulci and basal cisterns are within normal limits. There is no hydrocephalus. Morgan-white matter differentiation is normal. There is no acute intracranial hemorrhage. There is no mass, mass effect or midline shift. Posterior fossa is normal in appearance. Visualized portions of the orbits are normal. Paranasal sinuses are well aerated. Mastoid air cells are well aerated. Scalp and calvaria are normal. IMPRESSION: No acute intracranial hemorrhage. Electronically signed by: Consuelo Mckeon MD (03/11/2019 5:27 AM) [facility]
--- NOTE | 2019-03-11 07:38 | EKG ---
[facility] [address] [place] [id number] Test Date: 2019-03-11 Test Time: 03:23:46 Pat Name: DAYTON MONROE Department: Room: Gender: F Vat Operator: : 1985 Requested By: DESIRAE HERBERT Order Number: [id number] Reading MD: Measurements Intervals [place] Rate: 100 P: 51 WV: 144 QRS: 56 QRSD: 96 T: 51 QT: 370 QTc: 480 Interpretive Statements SINUS TACHYCARDIA OTHERWISE NORMAL ECG No previous ECG available for comparison
[2019-03-11] MEDS: POTASSIUM CHLORIDE 10MEQ 100 ML IV SCH ×4 (11:40→15:00)
--- NOTE | 2019-03-11 12:01 | PDOC ---
PULMONARY PROGRESS NOTES Vitals Vital Signs Date Time Temp Pulse Resp B/P (MAP) Pulse Ox O2 Delivery O2 Flow Rate FiO2 03/11/19 11:16 103 14 126/65 (85) 100 Ventilator 03/11/19 01:55 99.1 99.1 Labs Laboratory Tests Test 03/11/19 02:08 03/11/19 02:20 03/11/19 02:56 White Blood Count 8.2 x10^3/uL (4.0-11.0) Red Blood Count 4.81 x10^6/uL (3.50-5.40) Hemoglobin 13.4 g/dL (12.0-15.5) Hematocrit 40.3 % (36.0-47.0) Mean Corpuscular Volume 84 fL (79-100) Mean Corpuscular Hemoglobin 28 pg (25-35) Mean Corpuscular Hemoglobin Concent 33 g/dL (31-37) Red Cell Distribution Width 18.3 % (11.5-14.5) Platelet Count 402 x10^3/uL (140-400) Neutrophils (%) (Auto) 55 % (31-73) Lymphocytes (%) (Auto) 38 % (24-48) Monocytes (%) (Auto) 5 % (0-9) Eosinophils (%) (Auto) 1 % (0-3) Basophils (%) (Auto) 1 % (0-3) Neutrophils # (Auto) 4.5 x10^3uL (1.8-7.7) Lymphocytes # (Auto) 3.1 x10^3/uL (1.0-4.8) Monocytes # (Auto) 0.4 x10^3/uL (0.0-1.1) Eosinophils # (Auto) 0.1 x10^3/uL (0.0-0.7) Basophils # (Auto) 0.0 x10^3/uL (0.0-0.2) Prothrombin Time 12.7 SEC (11.7-14.0) Prothromb Time International Ratio 1.0 (0.8-1.1) Maternal Serum HCG Beta Subunit < 1 mIU/mL (0-5) Sodium Level 146 mmol/L (136-145) Potassium Level 3.3 mmol/L (3.5-5.1) Chloride Level 105 mmol/L (98-107) Carbon Dioxide Level 25 mmol/L (21-32) Anion Gap 16 (6-14) Blood Urea Nitrogen 8 mg/dL (7-20) Creatinine 0.6 mg/dL (0.6-1.0) Estimated GFR (Cockcroft-Gault) 113.8 BUN/Creatinine Ratio 13 (6-20) Glucose Level 132 mg/dL (70-99) Calcium Level 8.0 mg/dL (8.5-10.1) Total Bilirubin 0.2 mg/dL (0.2-1.0) Aspartate Amino Transf (AST/SGOT) 26 U/L (15-37) Alanine Aminotransferase (ALT/SGPT) 25 U/L (14-59) Alkaline Phosphatase 91 U/L (46-116) Creatine Kinase 293 U/L (26-192) QR-Map-[id number]-Type Natriuretic Peptide 48 pg/mL (0-124) Total Protein 8.1 g/dL (6.4-8.2) Albumin 3.7 g/dL (3.4-5.0) Albumin/Globulin Ratio 0.8 (1.0-1.7) Salicylates Level 4.3 mg/dL (2.8-20.0) Salicylate Last Dose Date Salicylate Last Dose Time Acetaminophen Level < 2 mcg/ml (10-30) Acetaminophen Last Dose Date Acetaminophen Last Dose Time Ethyl Alcohol Level 198 mg/dL (0-10) O2 Saturation 98 % (92-99) Arterial Blood pH 7.39 (7.35-7.45) Arterial Blood pH (Temp corrected) 7.39 Arterial Blood pCO2 at Patient Temp 39 mmHg (35-46) Arterial Blood pCO2 (Temp correct) 39 mmHg Arterial Blood pO2 at Patient Temp 487 mmHg (85-108) Arterial Blood pO2 (Temp corrected) 489 mmHg Arterial Blood HCO3 23 mmol/L (21-28) Arterial Blood Base Excess -2 mmol/L (-3-3) FiO2 100 Urine Collection Type Unknown Urine Color Yellow Urine Clarity Clear Urine pH 6.0 Urine Specific [place] 1.010 Urine Protein Negative mg/dL (NEG-TRACE) Urine Glucose (UA) Negative mg/dL (NEG) Urine Ketones (Stick) Negative mg/dL (NEG) Urine Blood Trace (NEG) Urine Nitrite Negative (NEG) Urine Bilirubin Negative (NEG) Urine Urobilinogen Dipstick 1.0 mg/dL (0.2 mg/dL) Urine Leukocyte Esterase Negative (NEG) Urine RBC 6-10 /HPF (0-2) Urine WBC Occ /HPF (0-4) Urine Squamous Epithelial Cells Few /LPF Urine Bacteria 0 /HPF (0-FEW) Urine Mucus Slight /LPF Urine Opiates Screen Neg (NEG) Urine Methadone Screen Neg (NEG) Urine Barbiturates Neg (NEG) Urine Phencyclidine Screen Neg (NEG) Urine Amphetamine/Methamphetamine Neg (NEG) Urine Benzodiazepines Screen Neg (NEG) Urine Cocaine Screen Neg (NEG) Urine Cannabinoids Screen Neg (NEG) Urine Ethyl Alcohol Pos (NEG) Laboratory Tests Test 03/11/19 02:08 03/11/19 02:20 03/11/19 02:56 White Blood Count 8.2 x10^3/uL (4.0-11.0) Red Blood Count 4.81 x10^6/uL (3.50-5.40) Hemoglobin 13.4 g/dL (12.0-15.5) Hematocrit 40.3 % (36.0-47.0) Mean Corpuscular Volume 84 fL (79-100) Mean Corpuscular Hemoglobin 28 pg (25-35) Mean Corpuscular Hemoglobin Concent 33 g/dL (31-37) Red Cell Distribution Width 18.3 % (11.5-14.5) Platelet Count 402 x10^3/uL (140-400) Neutrophils (%) (Auto) 55 % (31-73) Lymphocytes (%) (Auto) 38 % (24-48) Monocytes (%) (Auto) 5 % (0-9) Eosinophils (%) (Auto) 1 % (0-3) Basophils (%) (Auto) 1 % (0-3) Neutrophils # (Auto) 4.5 x10^3uL (1.8-7.7) Lymphocytes # (Auto) 3.1 x10^3/uL (1.0-4.8) Monocytes # (Auto) 0.4 x10^3/uL (0.0-1.1) Eosinophils # (Auto) 0.1 x10^3/uL (0.0-0.7) Basophils # (Auto) 0.0 x10^3/uL (0.0-0.2) Prothrombin Time 12.7 SEC (11.7-14.0) Prothromb Time International Ratio 1.0 (0.8-1.1) Maternal Serum HCG Beta Subunit < 1 mIU/mL (0-5) Sodium Level 146 mmol/L (136-145) Potassium Level 3.3 mmol/L (3.5-5.1) Chloride Level 105 mmol/L (98-107) Carbon Dioxide Level 25 mmol/L (21-32) Anion Gap 16 (6-14) Blood Urea Nitrogen 8 mg/dL (7-20) Creatinine 0.6 mg/dL (0.6-1.0) Estimated GFR (Cockcroft-Gault) 113.8 BUN/Creatinine Ratio 13 (6-20) Glucose Level 132 mg/dL (70-99) Calcium Level 8.0 mg/dL (8.5-10.1) Total Bilirubin 0.2 mg/dL (0.2-1.0) Aspartate Amino Transf (AST/SGOT) 26 U/L (15-37) Alanine Aminotransferase (ALT/SGPT) 25 U/L (14-59) Alkaline Phosphatase 91 U/L (46-116) Creatine Kinase 293 U/L (26-192) KJ-Whe-Y-Type Natriuretic Peptide 48 pg/mL (0-124) Total Protein 8.1 g/dL (6.4-8.2) Albumin 3.7 g/dL (3.4-5.0) Albumin/Globulin Ratio 0.8 (1.0-1.7) Salicylates Level 4.3 mg/dL (2.8-20.0) Salicylate Last Dose Date Salicylate Last Dose Time Acetaminophen Level < 2 mcg/ml (10-30) Acetaminophen Last Dose Date Acetaminophen Last Dose Time Ethyl Alcohol Level 198 mg/dL (0-10) O2 Saturation 98 % (92-99) Arterial Blood pH 7.39 (7.35-7.45) Arterial Blood pH (Temp corrected) 7.39 Arterial Blood pCO2 at Patient Temp 39 mmHg (35-46) Arterial Blood pCO2 (Temp correct) 39 mmHg Arterial Blood pO2 at Patient Temp 487 mmHg (85-108) Arterial Blood pO2 (Temp corrected) 489 mmHg Arterial Blood HCO3 23 mmol/L (21-28) Arterial Blood Base Excess -2 mmol/L (-3-3) FiO2 100 Urine Collection Type Unknown Urine Color Yellow Urine Clarity Clear Urine pH 6.0 Urine Specific [place] 1.010 Urine Protein Negative mg/dL (NEG-TRACE) Urine Glucose (UA) Negative mg/dL (NEG) Urine Ketones (Stick) Negative mg/dL (NEG) Urine Blood Trace (NEG) Urine Nitrite Negative (NEG) Urine Bilirubin Negative (NEG) Urine Urobilinogen Dipstick 1.0 mg/dL (0.2 mg/dL) Urine Leukocyte Esterase Negative (NEG) Urine RBC 6-10 /HPF (0-2) Urine WBC Occ /HPF (0-4) Urine Squamous Epithelial Cells Few /LPF Urine Bacteria 0 /HPF (0-FEW) Urine Mucus Slight /LPF Urine Opiates Screen Neg (NEG) Urine Methadone Screen Neg (NEG) Urine Barbiturates Neg (NEG) Urine Phencyclidine Screen Neg (NEG) Urine Amphetamine/Methamphetamine Neg (NEG) Urine Benzodiazepines Screen Neg (NEG) Urine Cocaine Screen Neg (NEG) Urine Cannabinoids Screen Neg (NEG) Urine Ethyl Alcohol Pos (NEG) Medications Active Scripts Medications Dose Route/Sig Max Daily Dose Days Date Category Bactrim Ds Tablet (Sulfamethoxazole/Trimethoprim) 1 Each Tablet 1 Tab PO BID 3 08/08/18 Rx Pyridium (Phenazopyridine Hcl) 200 Mg Tablet 200 Mg PO TID 5 03/01/18 Rx Doxycycline Hyclate 100 Mg Tablet.dr 1 Tab PO BID 10 03/01/18 Rx Miralax (Polyethylene Glycol 3350) 119 Gm Powder 17 Gm PO DAILY 12/06/17 Rx Amitiza (Lubiprostone) 8 Mcg Capsule 8 Mcg PO BIDWMEALS 30 12/06/17 Rx Estradiol 2 Mg Tablet 1 Tab PO DAILY 12/03/17 Reported Fiber Lax (Calcium Polycarbophil) 625 Mg Tablet 625 Mg PO DAILY 12/03/17 Reported Omeprazole 40 Mg Capsule.dr 1 Cap PO DAILY 12/03/17 Reported Hyoscyamine Sulfate 0.125 Mg Tab.rapdis 0.125 Mg PO 12/03/17 Reported Promethazine Hcl 25 Mg Tablet 1 Tab PO BID PRN 12/03/17 Reported Cyclobenzaprine Hcl 10 Mg Tablet 1 Tab PO BID PRN 11/11/14 Reported Bentyl (Dicyclomine Hcl) 20 Mg Tablet 20 Mg PO BID 02/09/14 Reported Lortab 7.5-500 Tablet (Hydrocodone Bit/Acetaminophen) 1 Each Tablet 1 Each PO Q4HRS PRN 09/28/13 Reported Impression . PT SEEN IN ER WILL HOLD SEDATION AND EXTUBATE HEMODYNAMICALLY STABLE WILL REPLACE PRITESH CONNOR MD Mar 11, 2019 12:01
--- NOTE | 2019-03-11 12:52 | CONS ---
DATE OF CONSULTATION: 03/11/2019 ATTENDING PHYSICIAN: Dr. Crow. REASON FOR CONSULTATION: The patient seen in pulmonary consultation at the request of Dr. Crow for vent management. HISTORY OF PRESENT ILLNESS: The patient is a 34-year-old that was seen in the Emergency Department. She has a history of anxiety, depression, diverticulosis, irritable bowel syndrome, kidney stone, prior history of ischemic colitis, gastric bypass, hysterectomy, presented to the Emergency Room with overdose, unknown reason. She apparently took promethazine. She had a low GCS. She was intubated. She has been in the Emergency Room overnight and has been hemodynamically stable. I was called as a result of her requiring sedation once sedation wears off. According to the nurse, she is awake, alert, follows commands and pulls on tubes and wires. Moves all extremities. I was called to evaluate for possible extubation in the Emergency Department, she is an ICU hold. Upon my arrival, the patient had been sedated. Vital signs are stable. She was on assist control ventilation. Arterial blood gas revealed a pH of 7.39, PaCO2 of 39, pO2 of 487. Her labs were all normal except for potassium of 3.4. Beta hCG was negative. Alcohol level was markedly elevated. PAST MEDICAL HISTORY: As indicated above, history of depression, anxiety, diverticulosis, irritable bowel syndrome, previous kidney stone, ischemic colitis, gastric bypass with dumping syndrome. She has had previous cholecystectomy, hysterectomy, tubal ligation, bladder surgery. She had a vaginal lift. PAST SURGICAL HISTORY: As above. ALLERGIES: FLAGYL. MEDICATIONS: Current medication list was reviewed. Home medication list was likewise reviewed. She was on promethazine, Bactrim, doxycycline, Bentyl, cyclobenzaprine, Lortab, calcium supplement, Amitiza, MiraLax, omeprazole, estradiol and Pyridium. REVIEW OF SYSTEMS: Unobtainable secondary to the patient's condition. PHYSICAL EXAMINATION: GENERAL: Once again, she was examined in the Emergency Department. VITAL SIGNS: Stable. At one point, her blood pressure was elevated. She is receiving IV fluids. HEENT: Eyes, the sclerae were nonicteric. NECK: Jugular venous distention was not elevated. Tracheostomy tube in place orally. CHEST: Full expansion. LUNGS: Adequate airway flow with no wheezes. CARDIOVASCULAR: Regular rate and rhythm with S1, S2, no S3. ABDOMEN: Soft, nontender, no masses felt. EXTREMITIES: No clubbing or cyanosis. No pitting edema. NEUROLOGIC: The patient had been sedated. LABORATORY DATA: As indicated above were reviewed. White count was normal. Hemoglobin and hematocrit were normal. Arterial blood gas as indicated above. Potassium was low. AST and ALT were normal. Creatinine kinase was slightly elevated. Toxicology screen was negative except for alcohol. UA showed occasional wbc's. Her beta hCG subunit was less than 1. Chest x-ray revealed no acute cardiopulmonary process. CT head reports no acute intracranial hemorrhage. IMPRESSION: 1. Acute respiratory failure secondary to drug overdose. 2. Alcohol intoxication. 3. History of depression and anxiety. 4. History of diverticulosis, irritable bowel syndrome, previous ischemic colitis, status post gastric bypass. 5. Status post hysterectomy. 6. Other comorbidities as indicated above. PLAN: The patient has recently been sedated. We will hold sedation. Discontinue Diprivan. When she is awake, alert, following commands and moves all extremities, we will proceed with extubation. No need for a trial. She was intubated as a result of overdose and alcohol intoxication. Time has gone by to the point where the drugs have somewhat cleared the system. We will proceed with extubation and follow closely. Recommend psych evaluation prior to discharge. We will replace potassium, an order was given for 40 mEq IV x 1. I do appreciate the privilege in sharing in the patient's care. Total cumulative critical care time of 40 minutes. PRITESH ARIZA MD DR: MILENA/donald JOB#: [id number] / [id number]
--- NOTE | 2019-03-11 12:56 | PDOC ---
PROGRESS NOTES Subjective Subjective Patient sleepy but arousable. Objective Objective Vital Signs Date Time Temp Pulse Resp B/P (MAP) Pulse Ox O2 Delivery O2 Flow Rate FiO2 03/11/19 12:36 98 22 126/79 (95) 100 Nasal Cannula 3.0 03/11/19 01:55 99.1 99.1 Intake and Output 03/11/19 07:00 Intake Total 2000 ml Output Total 1500 ml Balance 500 ml Intake IV Total 2000 ml Output Urine Total 1500 ml # Bowel Movements 1 Physical Exam Abdomen: Normal bowel sounds, Soft, No tenderness Heart: Regular rate Extremities: No edema General: No acute distress Lungs: Clear to auscultation Plan Plan of Care 1. Intentional overdose - patient took large quantity of Phenergan, which she has been prescribed in the past. Was intubated to protect airway but became more alert after several hours and was able to be extubated. Presently stable in ER awaiting transfer to floor. Continue supportive care. PAT team can see her when she is more alert. 2. chronic back pain - UDS was negative for opiates at admission, which she is prescribed. Continue Tylenol prn. 3. hypokalemia - replacing IV. Recheck lab in AM. 4. chronic anxiety - patient was started on Sertraline for this in the past, unclear if she has been taking. Will discuss when she is more awake. Comment Review of Relevant I have reviewed the following items prateek (where applicable) has been applied. Labs Laboratory Tests Test 03/11/19 02:08 03/11/19 02:20 03/11/19 02:56 White Blood Count 8.2 x10^3/uL (4.0-11.0) Red Blood Count 4.81 x10^6/uL (3.50-5.40) Hemoglobin 13.4 g/dL (12.0-15.5) Hematocrit 40.3 % (36.0-47.0) Mean Corpuscular Volume 84 fL (79-100) Mean Corpuscular Hemoglobin 28 pg (25-35) Mean Corpuscular Hemoglobin Concent 33 g/dL (31-37) Red Cell Distribution Width 18.3 % (11.5-14.5) Platelet Count 402 x10^3/uL (140-400) Neutrophils (%) (Auto) 55 % (31-73) Lymphocytes (%) (Auto) 38 % (24-48) Monocytes (%) (Auto) 5 % (0-9) Eosinophils (%) (Auto) 1 % (0-3) Basophils (%) (Auto) 1 % (0-3) Neutrophils # (Auto) 4.5 x10^3uL (1.8-7.7) Lymphocytes # (Auto) 3.1 x10^3/uL (1.0-4.8) Monocytes # (Auto) 0.4 x10^3/uL (0.0-1.1) Eosinophils # (Auto) 0.1 x10^3/uL (0.0-0.7) Basophils # (Auto) 0.0 x10^3/uL (0.0-0.2) Prothrombin Time 12.7 SEC (11.7-14.0) Prothromb Time International Ratio 1.0 (0.8-1.1) Maternal Serum HCG Beta Subunit < 1 mIU/mL (0-5) Sodium Level 146 mmol/L (136-145) Potassium Level 3.3 mmol/L (3.5-5.1) Chloride Level 105 mmol/L (98-107) Carbon Dioxide Level 25 mmol/L (21-32) Anion Gap 16 (6-14) Blood Urea Nitrogen 8 mg/dL (7-20) Creatinine 0.6 mg/dL (0.6-1.0) Estimated GFR (Cockcroft-Gault) 113.8 BUN/Creatinine Ratio 13 (6-20) Glucose Level 132 mg/dL (70-99) Calcium Level 8.0 mg/dL (8.5-10.1) Total Bilirubin 0.2 mg/dL (0.2-1.0) Aspartate Amino Transf (AST/SGOT) 26 U/L (15-37) Alanine Aminotransferase (ALT/SGPT) 25 U/L (14-59) Alkaline Phosphatase 91 U/L (46-116) Creatine Kinase 293 U/L (26-192) OP-Jaj-E-Type Natriuretic Peptide 48 pg/mL (0-124) Total Protein 8.1 g/dL (6.4-8.2) Albumin 3.7 g/dL (3.4-5.0) Albumin/Globulin Ratio 0.8 (1.0-1.7) Salicylates Level 4.3 mg/dL (2.8-20.0) Salicylate Last Dose Date Salicylate Last Dose Time Acetaminophen Level < 2 mcg/ml (10-30) Acetaminophen Last Dose Date Acetaminophen Last Dose Time Ethyl Alcohol Level 198 mg/dL (0-10) O2 Saturation 98 % (92-99) Arterial Blood pH 7.39 (7.35-7.45) Arterial Blood pH (Temp corrected) 7.39 Arterial Blood pCO2 at Patient Temp 39 mmHg (35-46) Arterial Blood pCO2 (Temp correct) 39 mmHg Arterial Blood pO2 at Patient Temp 487 mmHg (85-108) Arterial Blood pO2 (Temp corrected) 489 mmHg Arterial Blood HCO3 23 mmol/L (21-28) Arterial Blood Base Excess -2 mmol/L (-3-3) FiO2 100 Urine Collection Type Unknown Urine Color Yellow Urine Clarity Clear Urine pH 6.0 Urine Specific [place] 1.010 Urine Protein Negative mg/dL (NEG-TRACE) Urine Glucose (UA) Negative mg/dL (NEG) Urine Ketones (Stick) Negative mg/dL (NEG) Urine Blood Trace (NEG) Urine Nitrite Negative (NEG) Urine Bilirubin Negative (NEG) Urine Urobilinogen Dipstick 1.0 mg/dL (0.2 mg/dL) Urine Leukocyte Esterase Negative (NEG) Urine RBC 6-10 /HPF (0-2) Urine WBC Occ /HPF (0-4) Urine Squamous Epithelial Cells Few /LPF Urine Bacteria 0 /HPF (0-FEW) Urine Mucus Slight /LPF Urine Opiates Screen Neg (NEG) Urine Methadone Screen Neg (NEG) Urine Barbiturates Neg (NEG) Urine Phencyclidine Screen Neg (NEG) Urine Amphetamine/Methamphetamine Neg (NEG) Urine Benzodiazepines Screen Neg (NEG) Urine Cocaine Screen Neg (NEG) Urine Cannabinoids Screen Neg (NEG) Urine Ethyl Alcohol Pos (NEG) Laboratory Tests Test 03/11/19 02:08 03/11/19 02:20 03/11/19 02:56 White Blood Count 8.2 x10^3/uL (4.0-11.0) Red Blood Count 4.81 x10^6/uL (3.50-5.40) Hemoglobin 13.4 g/dL (12.0-15.5) Hematocrit 40.3 % (36.0-47.0) Mean Corpuscular Volume 84 fL (79-100) Mean Corpuscular Hemoglobin 28 pg (25-35) Mean Corpuscular Hemoglobin Concent 33 g/dL (31-37) Red Cell Distribution Width 18.3 % (11.5-14.5) Platelet Count 402 x10^3/uL (140-400) Neutrophils (%) (Auto) 55 % (31-73) Lymphocytes (%) (Auto) 38 % (24-48) Monocytes (%) (Auto) 5 % (0-9) Eosinophils (%) (Auto) 1 % (0-3) Basophils (%) (Auto) 1 % (0-3) Neutrophils # (Auto) 4.5 x10^3uL (1.8-7.7) Lymphocytes # (Auto) 3.1 x10^3/uL (1.0-4.8) Monocytes # (Auto) 0.4 x10^3/uL (0.0-1.1) Eosinophils # (Auto) 0.1 x10^3/uL (0.0-0.7) Basophils # (Auto) 0.0 x10^3/uL (0.0-0.2) Prothrombin Time 12.7 SEC (11.7-14.0) Prothromb Time International Ratio 1.0 (0.8-1.1) Maternal Serum HCG Beta Subunit < 1 mIU/mL (0-5) Sodium Level 146 mmol/L (136-145) Potassium Level 3.3 mmol/L (3.5-5.1) Chloride Level 105 mmol/L (98-107) Carbon Dioxide Level 25 mmol/L (21-32) Anion Gap 16 (6-14) Blood Urea Nitrogen 8 mg/dL (7-20) Creatinine 0.6 mg/dL (0.6-1.0) Estimated GFR (Cockcroft-Gault) 113.8 BUN/Creatinine Ratio 13 (6-20) Glucose Level 132 mg/dL (70-99) Calcium Level 8.0 mg/dL (8.5-10.1) Total Bilirubin 0.2 mg/dL (0.2-1.0) Aspartate Amino Transf (AST/SGOT) 26 U/L (15-37) Alanine Aminotransferase (ALT/SGPT) 25 U/L (14-59) Alkaline Phosphatase 91 U/L (46-116) Creatine Kinase 293 U/L (26-192) CO-Csu-C-Type Natriuretic Peptide 48 pg/mL (0-124) Total Protein 8.1 g/dL (6.4-8.2) Albumin 3.7 g/dL (3.4-5.0) Albumin/Globulin Ratio 0.8 (1.0-1.7) Salicylates Level 4.3 mg/dL (2.8-20.0) Salicylate Last Dose Date Salicylate Last Dose Time Acetaminophen Level < 2 mcg/ml (10-30) Acetaminophen Last Dose Date Acetaminophen Last Dose Time Ethyl Alcohol Level 198 mg/dL (0-10) O2 Saturation 98 % (92-99) Arterial Blood pH 7.39 (7.35-7.45) Arterial Blood pH (Temp corrected) 7.39 Arterial Blood pCO2 at Patient Temp 39 mmHg (35-46) Arterial Blood pCO2 (Temp correct) 39 mmHg Arterial Blood pO2 at Patient Temp 487 mmHg (85-108) Arterial Blood pO2 (Temp corrected) 489 mmHg Arterial Blood HCO3 23 mmol/L (21-28) Arterial Blood Base Excess -2 mmol/L (-3-3) FiO2 100 Urine Collection Type Unknown Urine Color Yellow Urine Clarity Clear Urine pH 6.0 Urine Specific [place] 1.010 Urine Protein Negative mg/dL (NEG-TRACE) Urine Glucose (UA) Negative mg/dL (NEG) Urine Ketones (Stick) Negative mg/dL (NEG) Urine Blood Trace (NEG) Urine Nitrite Negative (NEG) Urine Bilirubin Negative (NEG) Urine Urobilinogen Dipstick 1.0 mg/dL (0.2 mg/dL) Urine Leukocyte Esterase Negative (NEG) Urine RBC 6-10 /HPF (0-2) Urine WBC Occ /HPF (0-4) Urine Squamous Epithelial Cells Few /LPF Urine Bacteria 0 /HPF (0-FEW) Urine Mucus Slight /LPF Urine Opiates Screen Neg (NEG) Urine Methadone Screen Neg (NEG) Urine Barbiturates Neg (NEG) Urine Phencyclidine Screen Neg (NEG) Urine Amphetamine/Methamphetamine Neg (NEG) Urine Benzodiazepines Screen Neg (NEG) Urine Cocaine Screen Neg (NEG) Urine Cannabinoids Screen Neg (NEG) Urine Ethyl Alcohol Pos (NEG) Medications Current Medications Sodium Chloride 1,000 ml @ 1,000 mls/hr 1X ONCE IV Last administered on 03/11/19at 02:06; Start 03/11/19 at 02:00; Stop 03/11/19 at 02:59; Status DC Naloxone HCl (Narcan) 0.4 mg 1X ONCE IV Last administered on 03/11/19at 01:57; Start 03/11/19 at 02:15; Stop 03/11/19 at 02:16; Status DC Propofol 100 ml @ As Directed STK-MED ONCE IV ; Start 03/11/19 at 02:01; Stop 03/11/19 at 02:02; Status DC Lorazepam (Ativan Inj) 2 mg 1X ONCE IV Last administered on 03/11/19at 02:32; Start 03/11/19 at 02:45; Stop 03/11/19 at 02:46; Status DC Succinylcholine Chloride (Anectine) 100 mg 1X ONCE IV Last administered on 03/11/19at 02:02; Start 03/11/19 at 02:00; Stop 03/11/19 at 02:24; Status DC Etomidate (Amidate) 20 mg 1X ONCE IV Last administered on 03/11/19at 02:02; Start 03/11/19 at 02:00; Stop 03/11/19 at 02:24; Status DC Propofol (Diprivan) 200 mg 1X ONCE IV Last administered on 03/11/19at 02:06; Start 03/11/19 at 02:30; Stop 03/11/19 at 02:31; Status DC Fentanyl Citrate (Fentanyl 2ml Vial) 100 mcg 1X ONCE IV Last administered on 03/11/19at 02:37; Start 03/11/19 at 03:00; Stop 03/11/19 at 03:01; Status DC Midazolam HCl (Versed) 5 mg 1X ONCE IV Last administered on 03/11/19at 03:07; Start 03/11/19 at 03:15; Stop 03/11/19 at 03:16; Status DC Fentanyl Citrate (Fentanyl 2ml Vial) 100 mcg 1X ONCE IV Last administered on 03/11/19at 03:07; Start 03/11/19 at 03:15; Stop 03/11/19 at 03:16; Status DC Midazolam HCl (Versed) 5 mg STK-MED ONCE .ROUTE ; Start 03/11/19 at 03:02; Stop 03/11/19 at 03:03; Status DC Propofol 100 ml @ As Directed STK-MED ONCE IV ; Start 03/11/19 at 03:03; Stop 03/11/19 at 03:04; Status DC Propofol 100 ml @ 1.347 mls/ hr CONT PRN IV SEE I/O RECORD; Start 03/11/19 at 02:00; Stop 03/11/19 at 05:06; Status DC Propofol 100 ml @ 1.347 mls/ hr 1X ONCE IV Last administered on 03/11/19at 02:06; Start 03/11/19 at 05:15; Stop 03/14/19 at 07:29 Sodium Chloride 1,000 ml @ 1,000 mls/hr 1X ONCE IV Last administered on 03/11/19at 06:05; Start 03/11/19 at 07:00; Stop 03/11/19 at 07:59; Status DC Naloxone HCl (Narcan) 2 mg STK-MED ONCE .ROUTE ; Start 03/11/19 at 02:00; Stop 03/11/19 at 07:11; Status DC Midazolam HCl (Versed) 5 mg 1X ONCE IV Last administered on 03/11/19at 10:09; Start 03/11/19 at 10:00; Stop 03/11/19 at 10:02; Status DC Potassium Chloride/Water 100 ml @ 100 mls/hr Q1H IV Last administered on 03/11/19at 12:43; Start 03/11/19 at 12:00; Stop 03/11/19 at 15:59 Active Scripts Active Bactrim Ds Tablet (Sulfamethoxazole/Trimethoprim) 1 Each Tablet 1 Tab PO BID 3 Days Pyridium (Phenazopyridine Hcl) 200 Mg Tablet 200 Mg PO TID 5 Days Doxycycline Hyclate 100 Mg Tablet.dr 1 Tab PO BID 10 Days Miralax (Polyethylene Glycol 3350) 119 Gm Powder 17 Gm PO DAILY Amitiza (Lubiprostone) 8 Mcg Capsule 8 Mcg PO BIDWMEALS 30 Days Reported Estradiol 2 Mg Tablet 1 Tab PO DAILY Fiber Lax (Calcium Polycarbophil) 625 Mg Tablet 625 Mg PO DAILY Omeprazole 40 Mg Capsule.dr 1 Cap PO DAILY Hyoscyamine Sulfate 0.125 Mg Tab.rapdis 0.125 Mg PO Promethazine Hcl 25 Mg Tablet 1 Tab PO BID PRN Cyclobenzaprine Hcl 10 Mg Tablet 1 Tab PO BID PRN Bentyl (Dicyclomine Hcl) 20 Mg Tablet 20 Mg PO BID Lortab 7.5-500 Tablet (Hydrocodone Bit/Acetaminophen) 1 Each Tablet 1 Each PO Q4HRS PRN Vitals/I & O Vital Sign - Last 24 Hours 03/11/19 03/11/19 03/11/19 03/11/19 01:55 02:08 02:14 02:15 Temp 99.1 99.1 Pulse 149 140 130 132 Resp 14 14 14 14 B/P (MAP) 192/128 (149) 221/155 (177) 175/79 (111) 173/81 (111) Pulse Ox 98 100 100 100 O2 Delivery Room Air Ventilator Ventilator Ventilator 03/11/19 03/11/19 03/11/19 03/11/19 02:20 02:25 02:30 02:35 Pulse 135 138 133 125 Resp 14 14 14 14 B/P (MAP) 169/79 (109) 193/114 (140) 180/91 (120) 158/80 (106) Pulse Ox 100 100 100 100 O2 Delivery Ventilator Ventilator Ventilator Ventilator 03/11/19 03/11/19 03/11/19 03/11/19 02:37 02:40 02:50 02:51 Pulse 116 111 Resp 14 14 B/P (MAP) 136/68 (90) 150/95 (113) Pulse Ox 100 100 100 100 O2 Delivery Ventilator Ventilator Ventilator Ventilator 03/11/19 03/11/19 03/11/19 03/11/19 03:00 03:07 03:10 03:20 Pulse 105 107 104 Resp 14 14 14 B/P (MAP) 135/65 (88) 133/70 (91) 134/80 (98) Pulse Ox 100 100 100 100 O2 Delivery Ventilator Ventilator Ventilator Ventilator 03/11/19 03/11/19 03/11/19 03/11/19 03:25 03:30 03:40 03:50 Pulse 101 100 106 100 Resp 14 14 14 14 B/P (MAP) 112/61 (78) 119/66 (83) 154/95 (114) 120/63 (82) Pulse Ox 100 100 100 100 O2 Delivery Ventilator Ventilator Ventilator Ventilator 03/11/19 03/11/19 03/11/19 03/11/19 04:00 04:10 04:20 04:30 Pulse 100 100 100 98 Resp 14 14 14 14 B/P (MAP) 133/80 (97) 119/66 (83) 117/59 (78) 124/60 (81) Pulse Ox 100 100 100 100 O2 Delivery Ventilator Ventilator Ventilator Ventilator 03/11/19 03/11/19 03/11/19 03/11/19 04:40 04:50 05:00 05:10 Pulse 98 98 98 100 Resp 14 14 14 14 B/P (MAP) 115/58 (77) 114/58 (76) 112/56 (74) 145/89 (107) Pulse Ox 100 100 100 100 O2 Delivery Ventilator Ventilator Ventilator Ventilator 03/11/19 03/11/19 03/11/19 03/11/19 05:20 05:30 05:40 05:45 Pulse 98 98 96 94 Resp 14 14 14 14 B/P (MAP) 152/95 (114) 137/98 (111) 117/59 (78) 99/56 (70) Pulse Ox 100 100 100 100 O2 Delivery Ventilator Bag Valve Mask Ventilator Ventilator 03/11/19 03/11/19 03/11/19 03/11/19 05:50 05:51 05:55 06:00 Pulse 90 86 84 Resp 14 14 14 B/P (MAP) 89/52 (64) 71/37 (48) 74/40 (51) Pulse Ox 100 100 100 100 O2 Delivery Ventilator Ventilator Ventilator Ventilator 03/11/19 03/11/19 03/11/19 03/11/19 06:10 06:20 06:30 06:40 Pulse 84 84 82 88 Resp 14 14 14 14 B/P (MAP) 89/54 (66) 97/54 (68) 99/57 (71) 147/86 (106) Pulse Ox 100 100 100 100 O2 Delivery Ventilator Ventilator Ventilator Ventilator 03/11/19 03/11/19 03/11/19 03/11/19 06:50 07:00 07:05 07:10 Pulse 90 90 92 92 Resp 14 14 14 14 B/P (MAP) 151/103 (119) 147/84 (105) 161/93 (115) 153/88 (109) Pulse Ox 100 100 100 100 O2 Delivery Ventilator Ventilator Ventilator Ventilator 03/11/19 03/11/19 03/11/19 03/11/19 07:15 07:25 07:35 07:45 Pulse 90 90 90 90 Resp 14 14 14 14 B/P (MAP) 142/83 (102) 156/94 (114) 146/89 (108) 140/83 (102) Pulse Ox 100 100 100 100 O2 Delivery Ventilator Ventilator Ventilator Ventilator 03/11/19 03/11/19 03/11/19 03/11/19 07:55 08:02 08:05 08:07 Pulse 92 118 118 116 Resp 14 14 14 14 B/P (MAP) 160/93 (115) 210/132 (158) 200/93 (128) 159/74 (102) Pulse Ox 100 100 100 100 O2 Delivery Ventilator Ventilator Ventilator Ventilator 03/11/19 03/11/19 03/11/19 03/11/19 08:15 08:26 08:32 08:35 Pulse 94 89 86 Resp 14 14 14 B/P (MAP) 137/73 (94) 126/67 (86) 120/65 (83) Pulse Ox 100 100 100 100 O2 Delivery Ventilator Ventilator Ventilator Ventilator 03/11/19 03/11/19 03/11/19 03/11/19 08:45 09:00 09:06 09:17 Pulse 84 96 92 87 Resp 14 14 14 14 B/P (MAP) 116/58 (77) 156/70 (98) 149/83 (105) 127/71 (89) Pulse Ox 100 100 100 100 O2 Delivery Ventilator Ventilator Ventilator Ventilator 03/11/19 03/11/19 03/11/19 03/11/19 09:26 09:36 09:39 09:42 Pulse 83 75 81 106 Resp 14 14 14 14 B/P (MAP) 114/64 (81) 85/47 (60) 108/55 (72) 180/104 (129) Pulse Ox 100 100 100 100 O2 Delivery Ventilator Ventilator Ventilator Ventilator 03/11/19 03/11/19 03/11/19 03/11/19 09:45 10:14 10:18 10:21 Pulse 120 126 116 Resp 14 14 14 B/P (MAP) 177/95 (122) 151/71 (97) 147/69 (95) Pulse Ox 97 98 97 97 O2 Delivery Ventilator Ventilator Ventilator Ventilator 03/11/19 03/11/19 03/11/19 03/11/19 10:25 10:36 10:46 10:55 Pulse 114 112 108 108 Resp 14 14 14 14 B/P (MAP) 133/64 (87) 133/63 (86) 125/64 (84) 127/64 (85) Pulse Ox 98 99 100 100 O2 Delivery Ventilator Ventilator Ventilator Ventilator 03/11/19 03/11/19 03/11/19 03/11/19 11:06 11:16 12:08 12:36 Pulse 107 103 101 98 Resp 14 14 22 22 B/P (MAP) 123/62 (82) 126/65 (85) 127/75 (92) 126/79 (95) Pulse Ox 100 100 100 100 O2 Delivery Ventilator Ventilator Nasal Cannula Nasal Cannula O2 Flow Rate 3.0 3.0 Intake and Output 03/10/19 03/10/19 03/11/19 15:00 23:00 07:00 Intake Total 2000 ml Output Total 1500 ml Balance 500 ml PIERCE MARTINO MD Mar 11, 2019 12:56
[2019-03-11] MEDS ORDERED: ACETAMINOPHEN 500 MG TABLET PO PRN (13:00)
--- NOTE | 2019-03-11 13:35 | HP ---
ADMIT DATE: 03/11/2019 CHIEF COMPLAINT: Intentional overdose. HISTORY OF PRESENT ILLNESS: The patient is a 34-year-old female who was brought to the Emergency Room with the above complaint. She had apparently taken approximately 27 tablets of the promethazine 25 mg that she is prescribed. When seen in the Emergency Room, she was somnolent. She was intubated to protect her airway and remains in the Emergency Department awaiting an inpatient bed. PAST MEDICAL HISTORY: Chronic anxiety, GERD and chronic back pain. PAST SURGICAL HISTORY: Cholecystectomy, hysterectomy, gastric bypass 11/29 and bladder tack. ALLERGIES: THE PATIENT IS ALLERGIC TO METRONIDAZOLE. HOME MEDICATIONS: This list may not be accurate, Flexeril 10 mg b.i.d. p.r.n., Bentyl 20 mg b.i.d. p.r.n., estradiol 2 mg daily, hydrocodone 7.5/325 p.r.n., omeprazole 40 mg daily, promethazine 25 mg q. 6 hours p.r.n. The patient had been started on sertraline 25 mg daily at her last office visit, but it is unknown if she is taking this. FAMILY HISTORY: Noncontributory. SOCIAL HISTORY: The patient is single. She quit smoking cigarettes in 2014. She has denied excessive alcohol use in the past. REVIEW OF SYSTEMS: This is presently unobtainable due to the patient's sedation. PHYSICAL EXAMINATION: GENERAL: The patient is seen in the Emergency Department after extubation. She is sleepy, but arousable and appears to be oriented when awakened. She is resting comfortably on the cart in no acute distress. HEENT: PERRL, EOMI, sclerae clear. Oropharynx: Mucous membranes are moist. NECK: Supple, without lymphadenopathy. CHEST: Clear to auscultation. CARDIOVASCULAR: Regular rhythm without murmur. ABDOMEN: Soft, nontender and normoactive bowel sounds are present. EXTREMITIES: Without edema. ASSESSMENT AND PLAN: 1. Intentional overdose. The patient is reported to have taken a large quantity of Phenergan, which she had been prescribed in the past. The chart indicates that she did tell a friend that she was trying to end her life. She does not have a history of suicidal attempts. She was able to be extubated after several hours on the ventilator and her vital signs are presently stable on oxygen per nasal cannula. She is awaiting transfer to the floor when an inpatient bed is available. We will continue supportive care. The PAT team can see her when she is more alert to discuss further Mental Health resources with her. 2. Chronic back pain. The patient has been prescribed hydrocodone for this for years. Urine drug screen at admission was negative for opiates. This will be discussed further with her. Tylenol is ordered p.r.n. 3. Hypokalemia. The patient's potassium was 3.3 at admission. This is being replaced IV. We will recheck lab in the morning. 4. Chronic anxiety. Unclear if the patient has been taking the sertraline she was started on several months ago. PIERCE MARTINO MD DR: JOSSY/nts JOB#: [id number] / [id number]
[2019-03-11 13:45] VITALS: BP 149/95
--- NOTE | 2019-03-11 15:05 | NUR ---
SW notified by RN to consult PAT team for SI. Debbie from PAT team will see pt today. Will continue to follow.
[2019-03-11 15:06] VITALS: BP 136/88
[2019-03-11 19:01] VITALS: BP 143/92
[2019-03-11 23:01] VITALS: BP 144/87
[2019-03-12 03:00] VITALS: BP 133/83
[2019-03-12 04:39] LABS: CALCIUM 8.3 mg/dL (8.5-10.1); CREATININE 0.5 mg/dL (0.6-1.0); GFR 140.4; POTASSIUM 3.2 mmol/L (3.5-5.1)
[2019-03-12 07:00] VITALS: BP 137/86
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
[2019-03-12] MEDS ORDERED: POTASSIUM CHLORIDE 20 MEQ TABLET.ER. PO ONE (08:00)
[2019-03-12] MEDS ORDERED: CALCIUM CARBONATE 500 MG TAB.CHEW PO PRN (09:45)
[2019-03-12] MEDS ORDERED: PANTOPRAZOLE 40 MG TABLET.DR. PO SCH (10:15)
[2019-03-12 11:00] VITALS: BP 141/87
--- NOTE | 2019-03-12 13:07 | NUR ---
Pt seen by PAT team today and was recommended to go to [facility] but pt declined. Debbie stated pt can dc home with family. RN notified. Addendum: 03/12/19 at 1310 by SALVADOR AGUIRRE Pt is provided with community resources, [facility] and [facility].
--- NOTE | 2019-03-12 14:29 | NUR ---
Discharge Note: [facility] [address] [place] [address] Discharge instructions and discharge home medications reviewed with Patient and a copy given. All questions have been answered and understanding verbalized. The following instructions and handouts were given: Diet, activity, medication list and follow up instructions provided. PAT teamMarielena, had patient sign safety contract and referred patient to mental health resources. Discontinued lines and drains: Peripheral IV discontinued and catheter intact. Patient discharged to Home or Self Care with Friend via Wheelchair
--- NOTE | 2019-03-13 08:38 | DS ---
DATE OF DISCHARGE: 03/12/2019 CHIEF COMPLAINT: Intentional overdose. HISTORY OF PRESENT ILLNESS: The patient is a 34-year-old female who was brought to the Emergency Room with the above complaint. She had apparently taken approximately 27 tablets of the promethazine 25 mg that she was prescribed. When seen in the Emergency Room, she was somnolent. She was intubated to protect her airway and admitted for further care. HOSPITAL COURSE: The patient spent several hours in the Emergency Department waiting for an inpatient bed. During that time, her level of alertness improved, sedation was discontinued, and she was able to be extubated without problems. She was then transferred to the inpatient floor where she remained under 1:1 observation. Her mental status continued to improve and by the morning after admission, she was back to her usual state. She admitted to significant feelings of depression, which is new for her and not something that she has experienced in the past. There had been several recent stressors in her life that may have contributed to this. She denied any further intention of trying to harm herself. She was seen by the PAT team and their recommendation was for inpatient psychiatric care for her. She declined this and felt that she would be fine to go home with friends. She was given information about outpatient mental health resources that are available to her and was strongly advised to follow up for further care. The patient had hypokalemia at admission, which was replaced and resolved. She has a history of chronic back pain and has been prescribed hydrocodone for this for years. Urine drug screen at admission was negative for opiates. The patient understands she will not be prescribed any more narcotics or other controlled substances from our office and is expected to take [id number] medication as needed for back pain. The patient was medically stable and was discharged to home. FINAL DIAGNOSES: 1. Intentional overdose. 2. Adjustment disorder with depressed mood. 3. Hypokalemia. 4. Chronic back pain. 5. Irritable bowel syndrome. DISCHARGE MEDICATIONS: Cyclobenzaprine 10 mg b.i.d. p.r.n., Bentyl 20 mg p.r.n., estradiol 2 mg daily, and omeprazole 40 mg daily. FOLLOWUP: With Dr. Arguelles as needed. PIERCE ARGUELLES MD DR: JOSSY/donald JOB#: [id number] / [id number] YASD
== END 2019-03-12 14:10 | disposition home or self-care (01) | DRG 917 ==
LOC: ER 01:49 → ED HOLD 02:20 → 6 SOUTH 13:29
PROVIDERS: ADMIT Family Medicine; ATTEND Family Medicine
PROC: 0BH17EZ Insertion of Endotracheal Airway into Trachea, Via Natural or Artificial Opening (ICD-10-PCS; principal; 2019-03-11)
PROC: 5A1935Z Respiratory Ventilation, Less than 24 Consecutive Hours (ICD-10-PCS; 2019-03-11)
DX: T43.3X2A Poisoning by phenothiazine antipsychotics and neuroleptics, intentional self-harm, initial encounter (principal); J96.00 Acute respiratory failure, unspecified whether with hypoxia or hypercapnia; G89.29 Other chronic pain; M54.9 Dorsalgia, unspecified; E87.6 Hypokalemia; F41.9 Anxiety disorder, unspecified; K21.9 Gastro-esophageal reflux disease without esophagitis; F10.129 Alcohol abuse with intoxication, unspecified; F43.21 Adjustment disorder with depressed mood; K57.90 Diverticulosis of intestine, part unspecified, without perforation or abscess without bleeding; K58.9 Irritable bowel syndrome, unspecified; Z90.49 Acquired absence of other specified parts of digestive tract; Z98.84 Bariatric surgery status; Z90.710 Acquired absence of both cervix and uterus; Z88.1 Allergy status to other antibiotic agents; Z87.891 Personal history of nicotine dependence; Z87.442 Personal history of urinary calculi; Z87.19 Personal history of other diseases of the digestive system; Y92.89 Other specified places as the place of occurrence of the external cause
CPT/HCPCS: 36415; 36600; 70450; 71045; 74018; 80048; 80053; 80307; 80329; 81001; 82550; 82805; 83880; 84702; 85025; 85610; 93005; 94002; 94003; G0480; J0330; J2060; J2250; J2310; J2704; J3010; J3480; J7030; 99291-25

== ENCOUNTER 2019-09-28 19:54 | Emergency (ER) | payer MEDICAID, OTHER ==
[~2019-09-28 19:54] MED LIST changes: +DOXY-96 PO; -DOXY100T9 PO; +OMEP40CA45 PO; -OMEP40CA5 PO; -PANT40TA3 PO; +PANT40TA77 PO
[2019-09-28 20:16] VITALS: BP 169/89
[2019-09-28] MEDS ORDERED: ORPHENADRINE CITRATE 60 MG/2 ML VIAL. IM ONE (21:00)
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
--- NOTE | 2019-09-28 21:21 | RAD ---
HIP RIGHT 2V WITH PELVIS History: Pain after a fall. Inability to walk. COMPARISON: None FINDINGS: Linear lucency overlying the right superior pubic ramus on the AP pelvis image, raising the question of a nondisplaced fracture. However, this is not confirmed on the other 2 views. No other evidence of fracture is identified. Joint spaces are intact without dislocation. Mild relative distention with gas in the pelvis. IMPRESSION: 1. Linear lucency over the right superior pubic ramus. Although only seen on this single view, this does raise the question of a nondisplaced fracture. 2. No definite fracture of the proximal femur. 3. CT or MRI could further evaluate, as indicated. Electronically signed by: Breezy Bush MD (09/28/2019 9:18 PM) [facility]
[2019-09-28] MEDS ORDERED: HYDROcodone/APAP 5/325MG 1 TAB TABLET PO ONE (21:45)
--- NOTE | 2019-09-28 22:35 | RAD ---
CT ABDOMEN PELVIS WO CONTRAST History: Right lower quadrant pain. History kidney stones. Right pubic ramus lucency. Technique: Noncontrast examination of the abdomen and pelvis. Coronal and sagittal reconstructions were performed. Exposure: One or more of the following individualized dose reduction techniques were utilized for this examination: 1. Automated exposure control 2. Adjustment of the mA and/or kV according to patient size 3. Use of iterative reconstruction technique. Comparison: Right hip radiograph September 28, 2019. CT April 04, 2017 Findings: Lower chest: No consolidation or pleural effusion. List disease within the chest. Abdomen and pelvis: The liver, spleen, and adrenal glands are unremarkable. Prior cholecystectomy. Fatty infiltration of the pancreas, unchanged. Postoperative changes gastric bypass. Unremarkable noncontrast appearance of the kidneys. No hydronephrosis. No renal, ureteral or urinary bladder stone. Normal appendix. No evidence of bowel obstruction. No pathologic lymphadenopathy. No ascites. Prior hysterectomy. Right posterior gluteal subcutaneous fat infiltration. Small periumbilical fat-containing hernia. Bones: No evidence of fracture. Previously described right superior pubic ramus lucency likely related to summation artifact. Impression: 1. No acute intra-abdominal or pelvic pathology. No obstructing urolithiasis. 2. Infiltration of the right gluteal subcutaneous tissues, may represent soft tissue contusion. 3. Postop changes gastric bypass, prior cholecystectomy and hysterectomy. Electronically signed by: Todd Husain DO (09/28/2019 10:32 PM) [id number]
[2019-09-28] MEDS ORDERED: PRED-220 PO (23:11)
== END 2019-09-28 23:15 | disposition home or self-care (01) ==
LOC: ER 19:54
DX: S70.01XA Contusion of right hip, initial encounter (principal); S70.11XA Contusion of right thigh, initial encounter; M54.5 Low back pain; R82.998 Other abnormal findings in urine; F41.9 Anxiety disorder, unspecified; F32.9 Major depressive disorder, single episode, unspecified; K58.9 Irritable bowel syndrome, unspecified; Z87.442 Personal history of urinary calculi; K91.1 Postgastric surgery syndromes; Z90.49 Acquired absence of other specified parts of digestive tract; Z90.710 Acquired absence of both cervix and uterus; Z98.51 Tubal ligation status; Z98.890 Other specified postprocedural states; Z88.1 Allergy status to other antibiotic agents; W13.8XXA Fall from, out of or through other building or structure, initial encounter; Y93.39 Activity, other involving climbing, rappelling and jumping off; Y92.89 Other specified places as the place of occurrence of the external cause; Y99.8 Other external cause status
CPT/HCPCS: 73502; 74176; 96372; 99284; J2360

== ENCOUNTER 2020-02-21 23:47 | Emergency (ER) | payer MEDICAID ==
[~2020-02-21] VITALS: Ht 165.1 cm; Wt 86.4 kg
[~2020-02-21 23:47] MED LIST changes: +PRED-220 PO
[2020-02-22 00:11] LABS: BASO % 1 % (0-3); EOS # 0.3 x10^3/uL (0.0-0.7); EOS % 5 % (0-3); HEMOGLOBIN 11.7 g/dL (12.0-15.5); LYMPH # 3.4 x10^3/uL (1.0-4.8); LYMPH % 45 % (24-48); MEAN CORPUSCULAR HEMOGLOBIN 28 pg (25-35); MEAN CORPUSCULAR HGB CONC 33 g/dL (31-37); MEAN CORPUSCULAR VOLUME 84 fL (79-100); MONO # 0.4 x10^3/uL (0.0-1.1); MONO % 5 % (0-9); NEUT # 3.4 x10^3/uL (1.8-7.7); NEUT % 45 % (31-73); PLATELET COUNT 443 x10^3/uL (140-400); RED BLOOD COUNT 4.18 x10^6/uL (3.50-5.40); RED CELL DISTRIBUTION WIDTH 18.9 % (11.5-14.5); WHITE BLOOD COUNT 7.6 x10^3/uL (4.0-11.0)
[2020-02-22 00:15] LABS: BILIRUBIN,URINE NEGATIVE (NEG); CLARITY,URINE CLEAR; COLOR,URINE YELLOW; NITRITE,URINE POSITIVE (NEG); PROTEIN,URINE NEGATIVE (NEG-TRACE); UROBILINOGEN,URINE 0.2 mg/dL (0.2 mg/dL)
[2020-02-22 00:24] LABS: CALCIUM 8.1 mg/dL (8.5-10.1); CREATININE 0.9 mg/dL (0.6-1.0); GFR 70.8; POTASSIUM 3.5 mmol/L (3.5-5.1)
[2020-02-22 00:27] LABS: BARBITURATES NEG (NEG); BENZODIAZEPINES NEG (NEG); CANNABINOIDS NEG (NEG); COCAINE NEG (NEG); METHADONE NEG (NEG); OPIATES NEG (NEG); PHENCYCLIDINE NEG (NEG)
[2020-02-22] MEDS ORDERED: IV NORMAL SALINE 1000ML BAG 1,000 ML IV ONE (00:30)
[2020-02-22 00:34] LABS: ALBUMIN 3.5 g/dL (3.4-5.0); TOTAL BILIRUBIN 0.1 mg/dL (0.2-1.0); TOTAL PROTEIN 6.9 g/dL (6.4-8.2)
[2020-02-22 00:34] LABS: BACTERIA,URINE MANY /HPF (0-FEW); HYALINE CASTS, URINE FEW /HPF; SQUAMOUS EPITHELIAL CELL,UR FEW /LPF
[2020-02-22 00:35] LABS: AMPHETAMINE/METHAMPHETAMINE NEG (NEG)
--- NOTE | 2020-02-22 00:52 | PHYS DOC ---
Past Medical History Past Medical History: Anxiety, Depression, Diverticulosis, IBS, Kidney Stone, Other Additional Past Medical Histor: Ischemic colitis, dumping syndrome, prolapse bladder and rectum Past Surgical History: Cholecystectomy, Gastric Bypass, Hysterectomy, Tubal ligation, Other Additional Past Surgical Histo: bladder x3,vag lift,low back sx NOS,cystoscopy w/ stent,pelvic floor,HEMOR Smoking Status: Current Every Day Smoker Alcohol Use: None Drug Use: None Social History Narrative: UNKNOWN General Adult EDM: Chief Complaint: ALCOHOL INTOXICATION HPI: HPI: Patient is a 35 year old female presenting by EMS with chief complaint of alcohol intoxication. EMS state that patient's children called them stating that patient was having a panic attack. They state that patient has been drinking alcohol all day. They deny that patient has suicidal ideation or homicidal ideation. Is a possibility that the patient has a history of CVA and breast cancer. Patient does not give much history as she is intoxicated. Review of Systems: Review of Systems: Unable to perform review of systems secondary to patient condition. Heart Score: Risk Factors: Risk Factors: DM, Current or recent (<one month) smoker, HTN, HLP, family history of CAD, obesity. Risk Scores: Score 0 - 3: 2.5% MACE over next 6 weeks - Discharge Home Score 4 - 6: 20.3% MACE over next 6 weeks - Admit for Clinical Observation Score 7 - 10: 72.7% MACE over next 6 weeks - Early Invasive Strategies Current Medications: Current Medications Medications (Trade) Dose Ordered Sig/Too Start Time Stop Time Status Last Admin Dose Admin Sodium Chloride 1,000 ml @ 1,000 mls/hr 1X ONCE 02/22/20 00:30 02/22/20 01:29 02/22/20 00:27 1,000 MLS/HR Allergies: Allergies: Allergies Coded Allergies Type Severity Reaction Last Updated Verified metronidazole Allergy Intermediate Hives 12/05/17 Yes Physical Exam: PE: Constitutional: Well developed, well nourished, no acute distress, non-toxic appearance. [] HENT: Normocephalic, atraumatic Eyes: EOMI Neck: Normal range of motion, Supple Cardiovascular: Heart rate regular rhythm Lungs & Thorax: Bilateral breath sounds clear to auscultation [] Abdomen: Bowel sounds normal, soft, no tenderness Extremities: No tenderness, ROM intact Neurologic: Alert Current Patient Data: Labs: Laboratory Tests Test 02/22/20 00:01 02/22/20 00:05 02/22/20 00:09 White Blood Count 7.6 x10^3/uL (4.0-11.0) Red Blood Count 4.18 x10^6/uL (3.50-5.40) Hemoglobin 11.7 g/dL (12.0-15.5) L Hematocrit 35.0 % (36.0-47.0) L Mean Corpuscular Volume 84 fL (79-100) Mean Corpuscular Hemoglobin 28 pg (25-35) Mean Corpuscular Hemoglobin Concent 33 g/dL (31-37) Red Cell Distribution Width 18.9 % (11.5-14.5) H Platelet Count 443 x10^3/uL (140-400) H Neutrophils (%) (Auto) 45 % (31-73) Lymphocytes (%) (Auto) 45 % (24-48) Monocytes (%) (Auto) 5 % (0-9) Eosinophils (%) (Auto) 5 % (0-3) H Basophils (%) (Auto) 1 % (0-3) Neutrophils # (Auto) 3.4 x10^3/uL (1.8-7.7) Lymphocytes # (Auto) 3.4 x10^3/uL (1.0-4.8) Monocytes # (Auto) 0.4 x10^3/uL (0.0-1.1) Eosinophils # (Auto) 0.3 x10^3/uL (0.0-0.7) Basophils # (Auto) 0.0 x10^3/uL (0.0-0.2) Sodium Level 144 mmol/L (136-145) Potassium Level 3.5 mmol/L (3.5-5.1) Chloride Level 110 mmol/L (98-107) H Carbon Dioxide Level 28 mmol/L (21-32) Anion Gap 6 (6-14) Blood Urea Nitrogen 10 mg/dL (7-20) Creatinine 0.9 mg/dL (0.6-1.0) Estimated GFR (Cockcroft-Gault) 70.8 BUN/Creatinine Ratio 11 (6-20) Glucose Level 106 mg/dL (70-99) H Calcium Level 8.1 mg/dL (8.5-10.1) L Total Bilirubin 0.1 mg/dL (0.2-1.0) L Aspartate Amino Transferase (AST) 21 U/L (15-37) Alanine Aminotransferase (ALT) 22 U/L (14-59) Alkaline Phosphatase 74 U/L (46-116) Total Protein 6.9 g/dL (6.4-8.2) Albumin 3.5 g/dL (3.4-5.0) Albumin/Globulin Ratio 1.0 (1.0-1.7) Ethyl Alcohol Level 283 mg/dL (0-10) H Urine Collection Type U cath Urine Color Yellow Urine Clarity Clear Urine pH 6.0 (<5.0-8.0) Urine Specific [place] 1.010 (1.000-1.030) Urine Protein Negative mg/dL (NEG-TRACE) Urine Glucose (UA) Negative mg/dL (NEG) Urine Ketones (Stick) Negative mg/dL (NEG) Urine Blood Negative (NEG) Urine Nitrite Positive (NEG) Urine Bilirubin Negative (NEG) Urine Urobilinogen Dipstick 0.2 mg/dL (0.2 mg/dL) Urine Leukocyte Esterase Negative (NEG) Urine RBC 1-2 /HPF (0-2) Urine WBC 5-10 /HPF (0-4) Urine Squamous Epithelial Cells Few /LPF Urine Bacteria Many /HPF (0-FEW) Urine Hyaline Casts Few /HPF Urine Opiates Screen Neg (NEG) Urine Methadone Screen Neg (NEG) Urine Barbiturates Neg (NEG) Urine Phencyclidine Screen Neg (NEG) Urine Amphetamine/Methamphetamine Neg (NEG) Urine Benzodiazepines Screen Neg (NEG) Urine Cocaine Screen Neg (NEG) Urine Cannabinoids Screen Neg (NEG) Urine Ethyl Alcohol Pos (NEG) POC Urine HCG, Qualitative Hcg negative (Negative) Laboratory Tests 02/22/20 00:01 Laboratory Tests 02/22/20 00:01 Vital Signs: Vital Signs Date Time Temp Pulse Resp B/P (MAP) Pulse Ox O2 Delivery O2 Flow Rate FiO2 02/21/20 23:53 98.8 122 20 148/75 (99) 99 Room Air 98.8 EKG: EKG: [] Radiology/Procedures: Radiology/Procedures: [] Course & Med Decision Making: Course & Med Decision Making Pertinent Labs and Imaging studies reviewed. (See chart for details) Ordered labs, UA, UDS, IV fluids Patient's alcohol level is 283. Labs otherwise within normal limits. After sleeping for some time patient is alert and oriented in the ER. Patient was able to ambulate to the restroom without any difficulty. Patient was found to call family to come and pick her up so she can be discharged home. Patient has an oxygenation of 99% on room air. Discussed results and plan of care with patient. Patient is instructed to follow up with PCP in one to 2 days. Appropriate discharge instructions given to patient to return to the ED or to seek immediate medical evaluation. Patient is instructed to return to the ED if symptoms worsen or if any concerns. Dragon Disclaimer: Dragon Disclaimer: This electronic medical record was generated, in whole or in part, using a voice recognition dictation system. Departure Departure Impression: Primary Impression: Alcohol intoxication Disposition: 01 HOME, SELF-CARE Condition: IMPROVED Referrals: PIERCE MARTINO MD (PCP) Patient Instructions: Alcohol Intoxication Additional Instructions: Please return to the ED if symptoms worsen or if any concerns. Please follow-up with PCP in 1 to 2 days. Justicifation of Admission Dx: Justifications for Admission: Justification of Admission Dx: SABINA Willson DO Feb 22, 2020 00:52
[2020-02-22 01:30] VITALS: BP 163/106
[2020-02-22] MEDS ORDERED: CIPR500T94 PO (13:20)
[2020-02-22] MEDS ORDERED: NAPR-682 PO (13:20)
== END 2020-02-22 02:10 | disposition home or self-care (01) ==
LOC: ER 23:47
DX: F10.229 Alcohol dependence with intoxication, unspecified (principal); F41.9 Anxiety disorder, unspecified; F32.9 Major depressive disorder, single episode, unspecified; K58.9 Irritable bowel syndrome, unspecified; F17.200 Nicotine dependence, unspecified, uncomplicated; Z87.442 Personal history of urinary calculi; Z90.710 Acquired absence of both cervix and uterus; Z90.49 Acquired absence of other specified parts of digestive tract; Z98.51 Tubal ligation status; Z98.890 Other specified postprocedural states; Z88.8 Allergy status to other drugs, medicaments and biological substances
CPT/HCPCS: 36415; 80053; 80307; 81001; 81025; 85025; 87086; 99284; G0480; J7030; P9612

== ENCOUNTER 2020-02-22 10:10 | Emergency (ER) | payer MEDICAID ==
[~2020-02-22] VITALS: Ht 163.8 cm; Wt 67.7 kg
[2020-02-22 10:18] VITALS: BP 169/102
[2020-02-22] MEDS ORDERED: ONDANSETRON PF 4 MG/2 ML VIAL. IVP ONE (10:45)
[2020-02-22] MEDS ORDERED: MORPHINE SULFATE 4 MG/ML VIAL. IV ONE (10:45)
[2020-02-22] MEDS ORDERED: KETOROLAC 30 MG/ML VIAL. IVP ONE (10:45)
[2020-02-22 11:18] LABS: BASO # 0.1 x10^3/uL (0.0-0.2); BASO % 1 % (0-3); EOS # 0.1 x10^3/uL (0.0-0.7); EOS % 1 % (0-3); HEMOGLOBIN 11.3 g/dL (12.0-15.5); LYMPH % 15 % (24-48); MEAN CORPUSCULAR HEMOGLOBIN 28 pg (25-35); MEAN CORPUSCULAR HGB CONC 33 g/dL (31-37); MEAN CORPUSCULAR VOLUME 83 fL (79-100); MONO # 0.7 x10^3/uL (0.0-1.1); MONO % 5 % (0-9); NEUT # 10.8 x10^3/uL (1.8-7.7); NEUT % 79 % (31-73); PLATELET COUNT 392 x10^3/uL (140-400); RED CELL DISTRIBUTION WIDTH 19.1 % (11.5-14.5); WHITE BLOOD COUNT 13.6 x10^3/uL (4.0-11.0)
--- NOTE | 2020-02-22 11:25 | RAD ---
PQRS Compliance Statement: One or more of the following individualized dose reduction techniques were utilized for this examination: 1. Automated exposure control 2. Adjustment of the mA and/or kV according to patient size 3. Use of iterative reconstruction technique CT ABDOMEN PELVIS WO CONTRAST Clinical Indication: Reason: Left flank pain X 2 DAYS DIFFICULTY URINATING / Comparison: CT abdomen and pelvis without contrast, September 28, 2019. Technique: Helical CT imaging of the abdomen and pelvis is performed without IV or oral contrast. Findings: Evaluation of solid organs and bowel is limited without oral and IV contrast, decreasing sensitivity for detection of pathology. The lung bases are clear. Cardiac size normal. Cholecystectomy. The liver, spleen, pancreas, adrenal glands, and abdominal aortic caliber are normal. There is no renal, ureteral, or bladder calculus. No perinephric stranding or hydronephrosis is seen. Postsurgical changes of gastric bypass. No evidence of small bowel obstruction. The appendix is normal. There is no colon wall thickening. No abdominal adenopathy or free fluid. No urinary bladder wall thickening is seen. Hysterectomy. No pelvic free fluid. Small hyperdensities and calcifications of the vaginal cuff are unchanged. Vacuum disc phenomenon L4/L5 and L5/S1. There is central endplate spurring at L5/S1 with probably mild central canal stenosis. IMPRESSION: No acute abdominal or pelvic abnormality. Electronically signed by: Paul Guthrie MD (02/22/2020 11:23 AM) [id number]
[2020-02-22 11:26] LABS: CALCIUM 7.9 mg/dL (8.5-10.1); CREATININE 0.6 mg/dL (0.6-1.0); GFR 113.1; POTASSIUM 3.8 mmol/L (3.5-5.1)
[2020-02-22 11:32] LABS: ALBUMIN 3.6 g/dL (3.4-5.0); TOTAL BILIRUBIN 0.2 mg/dL (0.2-1.0); TOTAL PROTEIN 7.1 g/dL (6.4-8.2)
[2020-02-22 11:34] LABS: BILIRUBIN,URINE NEGATIVE (NEG); CLARITY,URINE CLEAR; COLOR,URINE YELLOW; NITRITE,URINE POSITIVE (NEG); PROTEIN,URINE NEGATIVE (NEG-TRACE); UROBILINOGEN,URINE 0.2 mg/dL (0.2 mg/dL)
[2020-02-22 11:50] LABS: RBC,URINE 0 /HPF (0-2)
[2020-02-22 11:51] LABS: BACTERIA,URINE MANY /HPF (0-FEW); SQUAMOUS EPITHELIAL CELL,UR FEW /LPF; WBC,URINE 0 /HPF (0-4)
[2020-02-22] MEDS ORDERED: cefTRIAXone IV Push 1 GM VIAL. IVP ONE (12:00)
--- NOTE | 2020-02-22 13:10 | PHYS DOC ---
Past Medical History Past Medical History: Anxiety, Depression, Diverticulosis, IBS, Kidney Stone, Other Additional Past Medical Histor: Ischemic colitis, dumping syndrome, prolapse bladder and rectum,hiatel junaid Past Surgical History: Cholecystectomy, Gastric Bypass, Hysterectomy, Tubal ligation, Other Additional Past Surgical Histo: bladder x3,vag lift,low back sx NOS,cystoscopy w/ stent,pelvic floor,HEMOR Smoking Status: Current Every Day Smoker Additional Information: 4-5 cigarettes daily Alcohol Use: Occasionally Drug Use: None General Adult EDM: Chief Complaint: FLANK PAIN HPI: HPI: Patient is a 35 year old [f__sex] who presents with [] Review of Systems: Review of Systems: Constitutional: Denies fever or chills. [] Eyes: Denies change in visual acuity. [] HENT: Denies nasal congestion or sore throat. [] Respiratory: Denies cough or shortness of breath. [] Cardiovascular: Denies chest pain or edema. [] GI: Denies abdominal pain, nausea, vomiting, bloody stools or diarrhea. [] : Denies dysuria. [] Musculoskeletal: Denies back pain or joint pain. [] Integument: Denies rash. [] Neurologic: Denies headache, focal weakness or sensory changes. [] Endocrine: Denies polyuria or polydipsia. [] Lymphatic: Denies swollen glands. [] Psychiatric: Denies depression or anxiety. [] Heart Score: Risk Factors: Risk Factors: DM, Current or recent (<one month) smoker, HTN, HLP, family history of CAD, obesity. Risk Scores: Score 0 - 3: 2.5% MACE over next 6 weeks - Discharge Home Score 4 - 6: 20.3% MACE over next 6 weeks - Admit for Clinical Observation Score 7 - 10: 72.7% MACE over next 6 weeks - Early Invasive Strategies Current Medications: Current Medications Medications (Trade) Dose Ordered Sig/Too Start Time Stop Time Status Last Admin Dose Admin Ceftriaxone Sodium (Rocephin) 1 gm 1X ONCE 02/22/20 12:00 02/22/20 12:01 DC 02/22/20 12:04 1 GM Ketorolac Tromethamine (Toradol 30mg Vial) 30 mg 1X ONCE 02/22/20 10:45 02/22/20 10:46 DC 02/22/20 11:23 30 MG Morphine Sulfate (Morphine Sulfate) 4 mg 1X ONCE 02/22/20 10:45 02/22/20 10:46 DC 02/22/20 11:24 4 MG Ondansetron HCl (Zofran) 4 mg 1X ONCE 02/22/20 10:45 02/22/20 10:46 DC 02/22/20 11:22 4 MG Allergies: Allergies: Allergies Coded Allergies Type Severity Reaction Last Updated Verified metronidazole Allergy Intermediate Hives 12/05/17 Yes Physical Exam: PE: Constitutional: Well developed, well nourished, no acute distress, non-toxic appearance. [] HENT: Normocephalic, atraumatic, bilateral external ears normal, oropharynx moist, no oral exudates, nose normal. [] Eyes: PERRLA, EOMI, conjunctiva normal, no discharge. [] Neck: Normal range of motion, no tenderness, supple, no stridor. [] Cardiovascular:Heart rate regular rhythm, no murmur [] Lungs & Thorax: Bilateral breath sounds clear to auscultation [] Abdomen: Bowel sounds normal, soft, no tenderness, no masses, no pulsatile masses. [] Skin: Warm, dry, no erythema, no rash. [] Back: No tenderness, no CVA tenderness. [] Extremities: No tenderness, no cyanosis, no clubbing, ROM intact, no edema. [] Neurologic: Alert and oriented X 3, normal motor function, normal sensory function, no focal deficits noted. [] Psychologic: Affect normal, judgement normal, mood normal. [] Current Patient Data: Labs: Laboratory Tests Test 02/22/20 10:15 02/22/20 10:26 02/22/20 11:11 Urine Collection Type Unknown Urine Color Yellow Urine Clarity Clear Urine pH 7.0 (<5.0-8.0) Urine Specific [place] 1.015 (1.000-1.030) Urine Protein Negative mg/dL (NEG-TRACE) Urine Glucose (UA) Negative mg/dL (NEG) Urine Ketones (Stick) Trace mg/dL (NEG) Urine Blood Negative (NEG) Urine Nitrite Positive (NEG) Urine Bilirubin Negative (NEG) Urine Urobilinogen Dipstick 0.2 mg/dL (0.2 mg/dL) Urine Leukocyte Esterase Negative (NEG) Urine RBC 0 /HPF (0-2) Urine WBC 0 /HPF (0-4) Urine Squamous Epithelial Cells Few /LPF Urine Bacteria Many /HPF (0-FEW) POC Urine HCG, Qualitative Hcg negative (Negative) White Blood Count 13.6 x10^3/uL (4.0-11.0) H Red Blood Count 4.10 x10^6/uL (3.50-5.40) Hemoglobin 11.3 g/dL (12.0-15.5) L Hematocrit 34.0 % (36.0-47.0) L Mean Corpuscular Volume 83 fL (79-100) Mean Corpuscular Hemoglobin 28 pg (25-35) Mean Corpuscular Hemoglobin Concent 33 g/dL (31-37) Red Cell Distribution Width 19.1 % (11.5-14.5) H Platelet Count 392 x10^3/uL (140-400) Neutrophils (%) (Auto) 79 % (31-73) H Lymphocytes (%) (Auto) 15 % (24-48) L Monocytes (%) (Auto) 5 % (0-9) Eosinophils (%) (Auto) 1 % (0-3) Basophils (%) (Auto) 1 % (0-3) Neutrophils # (Auto) 10.8 x10^3/uL (1.8-7.7) H Lymphocytes # (Auto) 2.0 x10^3/uL (1.0-4.8) Monocytes # (Auto) 0.7 x10^3/uL (0.0-1.1) Eosinophils # (Auto) 0.1 x10^3/uL (0.0-0.7) Basophils # (Auto) 0.1 x10^3/uL (0.0-0.2) Sodium Level 142 mmol/L (136-145) Potassium Level 3.8 mmol/L (3.5-5.1) Chloride Level 105 mmol/L (98-107) Carbon Dioxide Level 24 mmol/L (21-32) Anion Gap 13 (6-14) Blood Urea Nitrogen 9 mg/dL (7-20) Creatinine 0.6 mg/dL (0.6-1.0) Estimated GFR (Cockcroft-Gault) 113.1 BUN/Creatinine Ratio 15 (6-20) Glucose Level 82 mg/dL (70-99) Calcium Level 7.9 mg/dL (8.5-10.1) L Total Bilirubin 0.2 mg/dL (0.2-1.0) Aspartate Amino Transferase (AST) 25 U/L (15-37) Alanine Aminotransferase (ALT) 23 U/L (14-59) Alkaline Phosphatase 67 U/L (46-116) Total Protein 7.1 g/dL (6.4-8.2) Albumin 3.6 g/dL (3.4-5.0) Albumin/Globulin Ratio 1.0 (1.0-1.7) Lipase 53 U/L (73-393) L Laboratory Tests 02/22/20 11:11 Laboratory Tests 02/22/20 11:11 Vital Signs: Vital Signs Date Time Temp Pulse Resp B/P (MAP) Pulse Ox O2 Delivery O2 Flow Rate FiO2 02/22/20 11:24 20 02/22/20 10:18 98.4 95 169/102 (124) 99 Room Air 98.4 EKG: EKG: [] Radiology/Procedures: Radiology/Procedures: [][facility] [address] [place] [address] IMAGING REPORT Signed PATIENT: DAYTON MONROE ACCOUNT: [id number] : 1985 LOCATION: ER AGE: 35 SEX: F EXAM STATUS: REG ER ORD. PHYSICIAN: RUIZ LYNN DO REASON: Left flank pain X 2 DAYS DIFFICULTY URINATING PROCEDURE: CT ABDOMEN PELVIS WO CONTRAST PQRS Compliance Statement: One or more of the following individualized dose reduction techniques were utilized for this examination: 1. Automated exposure control 2. Adjustment of the mA and/or kV according to patient size 3. Use of iterative reconstruction technique CT ABDOMEN PELVIS WO CONTRAST Clinical Indication: Reason: Left flank pain X 2 DAYS DIFFICULTY URINATING / Comparison: CT abdomen and pelvis without contrast, September 28, 2019. Technique: Helical CT imaging of the abdomen and pelvis is performed without IV or oral contrast. Findings: Evaluation of solid organs and bowel is limited without oral and IV contrast, decreasing sensitivity for detection of pathology. The lung bases are clear. Cardiac size normal. Cholecystectomy. The liver, spleen, pancreas, adrenal glands, and abdominal aortic caliber are normal. There is no renal, ureteral, or bladder calculus. No perinephric stranding or hydronephrosis is seen. Postsurgical changes of gastric bypass. No evidence of small bowel obstruction. The appendix is normal. There is no colon wall thickening. No abdominal adenopathy or free fluid. No urinary bladder wall thickening is seen. Hysterectomy. No pelvic free fluid. Small hyperdensities and calcifications of the vaginal cuff are unchanged. Vacuum disc phenomenon L4/L5 and L5/S1. There is central endplate spurring at L5/S1 with probably mild central canal stenosis. IMPRESSION: No acute abdominal or pelvic abnormality. Electronically signed by: Paul Guthrie MD (02/22/2020 11:23 AM) [id number] DICTATED and SIGNED BY: PAUL GUTHRIE MD DATE: 02/22/203 Course & Med Decision Making: Course & Med Decision Making Pertinent Labs and Imaging studies reviewed. (See chart for details) [] Dragon Disclaimer: Dragon Disclaimer: This electronic medical record was generated, in whole or in part, using a voice recognition dictation system. Departure Departure Impression: Primary Impression: UTI (urinary tract infection) Disposition: HOME, SELF-CARE Condition: STABLE Referrals: PIERCE MARTINO MD (PCP) FOLLOW UP WITH YOUR DOCTOR NEXT WEEK Patient Instructions: Urinary Tract Infection Additional Instructions: Thank you for visiting our Emergency Department. We appreciate you trusting us with your care. If any additional problems come up don't hesitate to return to visit us. Please follow up with your primary care provider so they can plan additional care if needed and know about the problem that you had. If symptoms worsen come back to the Emergency Department. Any concerning symptoms that start such as chest pain, shortness of air, weakness or numbness on one side of the body, running high fevers or any other concerning symptoms return to the ER. Scripts Naproxen Sodium (ANAPROX DS) 550 Mg Tablet 1 TAB PO BID for 15 Days, #30 TAB 0 Refills Prov: RUIZ LYNN DO 02/22/20 Ciprofloxacin Hcl (CIPRO) 500 Mg Tablet 1 TAB PO BID for 7 Days, #14 TAB 0 Refills Prov: RUIZ LYNN DO 02/22/20 RUIZ LYNN DO Feb 22, 2020 13:09
[2020-02-22] MEDS ORDERED: CIPR500T94 PO (13:20)
[2020-02-22] MEDS ORDERED: NAPR-682 PO (13:20)
== END 2020-02-22 13:41 | disposition home or self-care (01) ==
LOC: ER 10:10
DX: N39.0 Urinary tract infection, site not specified (principal); F41.9 Anxiety disorder, unspecified; F32.9 Major depressive disorder, single episode, unspecified; K58.9 Irritable bowel syndrome, unspecified; F17.210 Nicotine dependence, cigarettes, uncomplicated; Z90.49 Acquired absence of other specified parts of digestive tract; Z90.710 Acquired absence of both cervix and uterus; Z98.51 Tubal ligation status; Z98.890 Other specified postprocedural states; Z87.442 Personal history of urinary calculi; Z88.8 Allergy status to other drugs, medicaments and biological substances
CPT/HCPCS: 36415; 74176; 80053; 81001; 81025; 83690; 85025; 87086; 96374; 96375; 99284; J0696; J1885; J2270; J2405

== ENCOUNTER 2020-06-11 13:51 | Emergency (ER) | payer MEDICAID ==
[~2020-06-11] VITALS: Ht 162.6 cm; Wt 75.0 kg
[~2020-06-11 13:51] MED LIST changes: +CIPR500T94 PO; +NAPR-682 PO
[2020-06-11 15:16] VITALS: BP 125/80
[2020-06-11] MEDS ORDERED: ACETAMINOPHEN 500 MG TABLET PO ONE (15:30)
--- NOTE | 2020-06-11 15:32 | PHYS DOC ---
Past Medical History Past Medical History: Anxiety, Depression, Diverticulosis, IBS, Kidney Stone, Other Additional Past Medical Histor: Ischemic colitis, dumping syndrome, prolapse bladder and rectum,hiatel junaid Past Surgical History: Cholecystectomy, Gastric Bypass, Hysterectomy, Tubal ligation, Other Additional Past Surgical Histo: bladder x3,vag lift,low back sx NOS,cystoscopy w/ stent,pelvic floor,HEMOR Smoking Status: Current Every Day Smoker Alcohol Use: Occasionally Drug Use: None General Adult EDM: Chief Complaint: OTHER COMPLAINTS HPI: HPI: Patient is a 35 year old female with history of depression, anxiety, who presents to the ED today complaining of moderate pain to the left upper extremity that began 2 days ago after she donated plasma. Patient states during plasma donation her IV infiltrated. She states she was informed her IV infiltrated but they did not know what to do for denies any fever, denies any shortness of breath.it. Patient is anxious and is currently crying. Review of Systems: Review of Systems: Constitutional: Denies fever or chills. [] Musculoskeletal: Reports left upper extremity pain Integument: Denies rash. [] Neurologic: Denies headache, focal weakness or sensory changes. [] Psychiatric: Appears anxious Heart Score: Risk Factors: Risk Factors: DM, Current or recent (<one month) smoker, HTN, HLP, family history of CAD, obesity. Risk Scores: Score 0 - 3: 2.5% MACE over next 6 weeks - Discharge Home Score 4 - 6: 20.3% MACE over next 6 weeks - Admit for Clinical Observation Score 7 - 10: 72.7% MACE over next 6 weeks - Early Invasive Strategies Current Medications: Current Medications Medications (Trade) Dose Ordered Sig/Too Start Time Stop Time Status Last Admin Dose Admin Acetaminophen (Tylenol) 1,000 mg 1X ONCE 06/11/20 15:30 06/11/20 15:31 UNV Allergies: Allergies: Allergies Coded Allergies Type Severity Reaction Last Updated Verified metronidazole Allergy Intermediate Hives 12/05/17 Yes Physical Exam: PE: Constitutional: Well developed, well nourished, no acute distress, non-toxic rosana earance. [] Skin: Left upper extremity with no deformity. Left antecubital region with 3 puncture wounds 2 of them are old one appears new. There is no redness to this region that is consistent with infection. There is bruising to the region consistent with needlestick. Diffuse tenderness throughout the left upper extremity. +2 left radial pulse. Cap refill less than 2 seconds to left fingers. Adequate sensation to the left upper extremity Back: No tenderness, no CVA tenderness. [] Extremities: No tenderness, no cyanosis, no clubbing, ROM intact, no edema. [] Neurologic: Alert and oriented X 3, normal motor function, normal sensory function, no focal deficits noted. [] Psychologic: Flat affect, crying. EKG: EKG: [] Radiology/Procedures: Radiology/Procedures: []PROCEDURE: VENOUS UPPER EXTREMITY LEFT Examination: Ultrasound left upper extremity venous duplex HISTORY: History of deep venous thrombosis COMPARISON: None available. Technique: Grayscale, color Doppler 2-D, spectral waveform analysis of the left upper extremity venous system were performed FINDINGS: The left internal jugular vein, subclavian vein, cephalic vein, brachial vein, axillary vein, basilic vein, radial, ulnar veins are patent. IMPRESSION: No evidence of deep venous thrombosis left upper extremity venous system. Electronically signed by: Raul Potter MD (06/11/2020 4:25 PM) [id number] DICTATED and SIGNED BY: RAUL POTTER MD DATE: 06/11/20 1625 Course & Med Decision Making: Course & Med Decision Making Pertinent Labs and Imaging studies reviewed. (See chart for details) This is a 35-year-old female patient presenting to the ED today with complaints of left upper extremity pain that began 2 days ago after she donated plasma. No signs of infection on the left upper extremity. No phlebitis. Venous Doppler of the left upper extremity is negative. Patient was discharged to home. Encouraged to apply warm packs to the left upper extremity. Follow-up with primary care doctor in 1 to 2 weeks. Dragon Disclaimer: Dragon Disclaimer: This electronic medical record was generated, in whole or in part, using a voice recognition dictation system. Departure Departure Impression: Primary Impression: IV infiltration Qualified Codes: T80.1XXA - Vascular complications following infusion, transfusion and therapeutic injection, initial encounter Disposition: HOME, SELF-CARE Condition: STABLE Referrals: PIERCE MARTINO MD (PCP) Follow-up in 1 to 2 weeks Patient Instructions: Infiltration, IV, [id number] Additional Instructions: Your left upper extremity was evaluated in the emergency room, there is no acute findings noted. Please follow-up with your own primary care doctor in 1 to 2 weeks. Try to elevate the extremity and apply warm packs to the region. Justicifation of Admission Dx: Justifications for Admission: Justification of Admission Dx: N/A CIELO MCDONALD APRN Jun 11, 2020 15:32
--- NOTE | 2020-06-11 16:28 | RAD ---
Examination: Ultrasound left upper extremity venous duplex HISTORY: History of deep venous thrombosis COMPARISON: None available. Technique: Grayscale, color Doppler 2-D, spectral waveform analysis of the left upper extremity venous system were performed FINDINGS: The left internal jugular vein, subclavian vein, cephalic vein, brachial vein, axillary vein, basilic vein, radial, ulnar veins are patent. IMPRESSION: No evidence of deep venous thrombosis left upper extremity venous system. Electronically signed by: Raul Potter MD (06/11/2020 4:25 PM) [id number]
[2020-06-11] MEDS ORDERED: KETOROLAC 60 MG/2 ML VIAL. IM ONE (17:00)
== END 2020-06-11 17:10 | disposition home or self-care (01) ==
LOC: ER 13:51
DX: T80.1XXA Vascular complications following infusion, transfusion and therapeutic injection, initial encounter (principal); K58.9 Irritable bowel syndrome, unspecified; Z86.718 Personal history of other venous thrombosis and embolism; F17.200 Nicotine dependence, unspecified, uncomplicated; Z88.3 Allergy status to other anti-infective agents; Y92.89 Other specified places as the place of occurrence of the external cause
CPT/HCPCS: 93971; 96372; 99284; J1885

== ENCOUNTER 2020-07-17 17:32 | Emergency (ER) | payer MEDICAID ==
[~2020-07-17] VITALS: Ht 162.6 cm; Wt 77.8 kg
--- NOTE | 2020-07-17 19:27 | RAD ---
Exam: Chest one view INDICATION: Shortness of breath TECHNIQUE: Frontal view of the chest Comparisons: 03/11/2019 FINDINGS: The cardiomediastinal silhouette and pulmonary vessels are within normal limits. The lung and pleural spaces are clear. IMPRESSION: No acute cardiopulmonary process. Electronically signed by: Errol Bose MD (07/17/2020 7:24 PM) [facility]
[2020-07-17] MEDS ORDERED: MAALOX:LIDO:APAP 6:2:1 ORAL SUSPENSION 180 ML BOTTLE. SWSP PRN (19:30)
[2020-07-17 19:43] LABS: INFLUENZA A PATIENT NEGATIVE (NEGATIVE); INFLUENZA B PATIENT NEGATIVE (NEGATIVE)
[2020-07-17] MEDS ORDERED: AMOX500T PO (20:32)
--- NOTE | 2020-07-17 20:33 | ED.ADGEN ---
Past Medical History Past Medical History: Anxiety, Depression, Diverticulosis, IBS, Kidney Stone, Other Additional Past Medical Histor: Ischemic colitis, dumping syndrome, prolapse bladder and rectum,hiatal junaid Past Surgical History: Cholecystectomy, Gastric Bypass, Hysterectomy, Tubal ligation, Other Additional Past Surgical Histo: bladder x3,vag lift,low back sx NOS,cystoscopy w/ stent,pelvic floor,HEMOR Smoking Status: Current Every Day Smoker Alcohol Use: Occasionally Drug Use: None General Adult EDM: Chief Complaint: MULTIPLE COMPLAINTS HPI: HPI: Patient is a 35 year old female who presents to the emergency department with complaints of a sore throat, sores inside of her mouth, body aches, chills, fatigue, bilateral ear pain, nausea, and vomiting that began 3 days ago. Patient reports that she is also had fevers. Patient denies any chest pain, shortness of breath, cough, or known COVID-19 exposure. She denies any recent exposure to rqej-erdl-gxi-mouth disease. She currently rates her pain a 7 out of 10 on pain scale, she denies any alleviating factors, her throat pain is worse when she swallows and the sores in her mouth hurt constantly. Review of Systems: Review of Systems: Complete ROS is negative unless otherwise noted in HPI. Current Medications: Current Medications Medications (Trade) Dose Ordered Sig/Too Start Time Stop Time Status Last Admin Dose Admin Multi-Ingredient Mouthwash/Gargle (Velvet Glove Oral Susp) 10 ml PRN QID PRN 07/17/20 19:30 07/17/20 20:46 DC 07/17/20 20:00 10 ML Allergies: Allergies: Allergies Coded Allergies Type Severity Reaction Last Updated Verified metronidazole Allergy Intermediate Hives 12/05/17 Yes Physical Exam: PE: See Above Constitutional: Well developed, well nourished, no acute distress, non-toxic appearance. [] HENT: Normocephalic, atraumatic, bilateral external ears normal, bilateral TMs normal, nose normal; posterior pharynx is erythematous with 1+ tonsils bilaterally; scattered aphthous ulcers throughout the oral mucosa. [] Eyes: PERRLA, EOMI, conjunctiva normal, no discharge. [] Neck: Normal range of motion, no stridor. [] Cardiovascular:Heart rate regular rhythm Lungs & Thorax: Respirations even and unlabored, no retractions, no respiratory distress Skin: Warm, dry, no erythema, no rash. [] Extremities: No cyanosis, ROM intact, no edema. [] Neurologic: Alert and oriented X 3, no focal deficits noted. [] Psychologic: Affect normal, judgement normal, mood normal. [] Current Patient Data: Labs: Laboratory Tests Test 07/17/20 19:07 Influenza Type A Antigen Negative (NEGATIVE) Influenza Type B Antigen Negative (NEGATIVE) Vital Signs: Vital Signs Date Time Temp Pulse Resp B/P (MAP) Pulse Ox O2 Delivery O2 Flow Rate FiO2 07/17/20 20:34 98 131/83 (99) 97 Room Air 07/17/20 18:14 100.6 16 100.6 EKG: EKG: [] Heart Score: Risk Factors: Risk Factors: DM, Current or recent (<one month) smoker, HTN, HLP, family history of CAD, obesity. Risk Scores: Score 0 - 3: 2.5% MACE over next 6 weeks - Discharge Home Score 4 - 6: 20.3% MACE over next 6 weeks - Admit for Clinical Observation Score 7 - 10: 72.7% MACE over next 6 weeks - Early Invasive Strategies Radiology/Procedures: Radiology/Procedures: PROCEDURE: CHEST AP ONLY Exam: Chest one view INDICATION: Shortness of breath TECHNIQUE: Frontal view of the chest Comparisons: 03/11/2019 FINDINGS: The cardiomediastinal silhouette and pulmonary vessels are within normal limits. The lung and pleural spaces are clear. IMPRESSION: No acute cardiopulmonary process.[] Rapid strep test is positive Course & Med Decision Making: Course & Med Decision Making Pertinent Labs and Imaging studies reviewed. (See chart for details) 35-year-old female presents emergency room with multiple complaints. Chest x-ray is unremarkable, rapid strep test is positive for strep; rapid flu test is negative; COVID-19 test is pending. Prescription was written for amoxicillin 500 mg twice daily x10 days. The patient was informed about the possibility of also having COVID-19. She was provided with quarantine instructions and instructed to follow the quarantine instructions until the results of her Covid test are known and/or she has been fever free for the last 72 hours. Patient verbalized an understanding of home care, medications, follow-up, and return to ED instructions and was in agreement with the plan of care. [] Dragon Disclaimer: Gianna Disclaimer: This electronic medical record was generated, in whole or in part, using a voice recognition dictation system. Departure Departure Impression: Primary Impression: Streptococcal pharyngitis Additional Impression: Person under investigation for COVID-19 Disposition: 01 DC HOME SELF CARE/HOMELESS Condition: STABLE Referrals: PIERCE MARTINO MD (PCP) Patient Instructions: Strep Throat, [id number] Additional Instructions: Fill prescription and use as directed. Recommend warm salt water gargles as needed for relief of discomfort. Alternate Tylenol and ibuprofen as needed for fever/pain. Discard your toothbrush tomorrow and begin using a new toothbrush. Follow-up with primary care doctor if symptoms persist. Return to the ER if symptoms worsen. You have been tested for or diagnosed with COVID-19. It is an infection caused by a new type of coronavirus. COVID-19 will cause cold-like or mild flu symptoms in most. It can cause more severe symptoms like problems breathing in some. There is no treatment for COVID-19. The body will clear the infection over time. Self-care will help to ease discomfort. Steps to Take: Self-Care Rest as needed. Healthy habits may help you feel better. Steps include: Choose healthy foods including fruits and vegetables. Drink water throughout the day. Get plenty of sleep each night. If you smoke, try to quit. It may ease breathing. Avoid alcohol. Keep Others Healthy The virus can spread to others. Droplets are released every time you sneeze or cough. The droplets can get into the mouth, nose, or eyes of people near you and lead to infection. To lower the chances of spreading COVID-19 to others: Stay at home until your doctor has said it is safe to leave. If you tested positive this will mean staying isolated until both of the following are true: At least 7 days have passed since the start of illness. You are free of fever for at least 72 hours without the use of medicine. During this time: - Avoid public areas, events, or transportation. Do not return to work or school until your doctor has said it is safe to do so. - Call ahead if you need to go to a medical center. Let them know you may have COVID-19. It will help them guide you where to go. They may also ask you to wear a facemask when you come to the office. - If you call for emergency medical services, let them know you may have COVID- 19. While at home: - Try to avoid close contact with others. Stay about 6 feet away. - If possible, spend most of your time in a separate room from others. - Use a face mask if you will be in close contact with others such as sharing a room or vehicle. - Have someone wipe down common surfaces in the home. Use household nurse orthopaedic every day on areas like doorknobs, counters, or sinks. - Cough or sneeze into a tissue. Throw the tissue away right after use. If a tissue is not available, cough or sneeze into your elbow. - Wash your hands often. Wash them after sneezing or coughing. Use soap and water and wash for at least 20 seconds. Alcohol based hand car cleaner can be used if soap and water is not available. - Do not prepare food for others. Avoid sharing personal items like forks, spoons, or toothbrushes. - Avoid close contact with pets while you are sick. There is no evidence of the virus passing to pets. This is a safety step until more is known about this virus. Isolation can be frustrating. Social interaction can help. Keep in touch with friends and family through phone and tech options. You can still interact with others in your home, just keep a safe distance of about 6 feet. Follow-up: Your doctors office will check in with you to see if there are any changes in your health. You may be asked to keep track of symptoms to share with them. They will also let you know when you are clear to be in public again. Problems to Look Out For: Contact your doctor if your recovery is not going as you expect. Get emergency care if you have problems such as: - Trouble breathing - Nonstop chest pain or pressure - Changes in awareness, confusion, or problems waking - Lips or face have bluish color - Worsening of symptoms If you think you have an emergency, call for emergency medical services right away. As taken from [facility] Amoxicillin (AMOXICILLIN) 500 Mg Tablet 1 TAB PO BID for 10 Days, #20 TAB 0 Refills Prov: SONI CRUM APRN 07/17/20 Problem Qualifiers SONI CRUM APRN Jul 17, 2020 20:33
[2020-07-17 20:34] VITALS: BP 131/83
--- NOTE | 2020-07-20 10:31 | NUR ---
IP: Informed pt of negative COVID results. Pt verbalized understanding.
== END 2020-07-17 20:38 | disposition home or self-care (01) ==
LOC: ER 17:32
DX: J02.0 Streptococcal pharyngitis (principal); Z20.818 Contact with and (suspected) exposure to other bacterial communicable diseases; B95.4 Other streptococcus as the cause of diseases classified elsewhere; H92.03 Otalgia, bilateral; R11.2 Nausea with vomiting, unspecified; F41.9 Anxiety disorder, unspecified; F32.9 Major depressive disorder, single episode, unspecified; F17.200 Nicotine dependence, unspecified, uncomplicated; Z87.442 Personal history of urinary calculi; Z90.49 Acquired absence of other specified parts of digestive tract; Z90.710 Acquired absence of both cervix and uterus; Z98.51 Tubal ligation status; Z98.890 Other specified postprocedural states; Z88.8 Allergy status to other drugs, medicaments and biological substances
CPT/HCPCS: 71045; 87804; 87880; 99285; C9803; U0003

== ENCOUNTER 2020-08-23 19:49 | Emergency (ER) | payer MEDICAID ==
[~2020-08-23] VITALS: Ht 170.2 cm; Wt 80.0 kg
[~2020-08-23 19:49] MED LIST changes: +AMOX500T PO
[2020-08-23 20:30] LABS: BASO % 1 % (0-3); EOS # 0.1 x10^3/uL (0.0-0.7); EOS % 2 % (0-3); HEMATOCRIT 39.3 % (36.0-47.0); HEMOGLOBIN 12.9 g/dL (12.0-15.5); LYMPH % 35 % (24-48); MEAN CORPUSCULAR HEMOGLOBIN 29 pg (25-35); MEAN CORPUSCULAR HGB CONC 33 g/dL (31-37); MEAN CORPUSCULAR VOLUME 88 fL (79-100); MONO # 0.7 x10^3/uL (0.0-1.1); MONO % 8 % (0-9); NEUT # 4.5 x10^3/uL (1.8-7.7); NEUT % 54 % (31-73); PLATELET COUNT 456 x10^3/uL (140-400); RED BLOOD COUNT 4.48 x10^6/uL (3.50-5.40); RED CELL DISTRIBUTION WIDTH 19.6 % (11.5-14.5); WHITE BLOOD COUNT 8.4 x10^3/uL (4.0-11.0)
[2020-08-23] MEDS ORDERED: IV NORMAL SALINE 1000ML BAG 1,000 ML IV ONE (20:30)
[2020-08-23] MEDS ORDERED: KETOROLAC 15 MG/ML VIAL. IVP ONE (20:30)
[2020-08-23 20:40] LABS: CALCIUM 8.1 mg/dL (8.5-10.1); CREATININE 0.9 mg/dL (0.6-1.0); GFR 70.8; POTASSIUM 3.5 mmol/L (3.5-5.1)
[2020-08-23 20:46] LABS: ALBUMIN 3.3 g/dL (3.4-5.0); MAGNESIUM 1.9 mg/dL (1.8-2.4); TOTAL BILIRUBIN 0.1 mg/dL (0.2-1.0); TOTAL PROTEIN 6.6 g/dL (6.4-8.2)
[2020-08-23 21:09] LABS: BILIRUBIN,URINE NEGATIVE (NEG); CLARITY,URINE CLEAR; COLOR,URINE YELLOW; NITRITE,URINE POSITIVE (NEG); PROTEIN,URINE NEGATIVE (NEG-TRACE); UROBILINOGEN,URINE 0.2 mg/dL (0.2 mg/dL)
--- NOTE | 2020-08-23 21:12 | PHYS DOC ---
Past Medical History Past Medical History: Anxiety, Depression, Diverticulosis, IBS, Kidney Stone, Other Additional Past Medical Histor: Ischemic colitis, dumping syndrome, prolapse bladder and rectum,hiatal junaid Past Surgical History: Cholecystectomy, Gastric Bypass, Hysterectomy, Tubal ligation, Other Additional Past Surgical Histo: bladder x3,vag lift,low back sx NOS,cystoscopy w/ stent,pelvic floor,HEMOR Smoking Status: Current Every Day Smoker Alcohol Use: Occasionally Drug Use: None General Adult EDM: Chief Complaint: RIB PAIN HPI: HPI: Patient is a 35 year old female who presents with rib pain. Pain started suddenly a few hours ago while she was vacuuming. Patient reports sternal pain with radiation just below the left breast and into the back. She reports shortness of breath associated. Patient reports drinking 2.5 glasses of wine tod ay. She denies other substance use. Patient reports history of anxiety and multiple surgeries to include hysterectomy and gastric bypass. Patient denies history of heart disease, diabetes, or blood clots. Review of Systems: Review of Systems: Constitutional: Denies fever or chills Eyes: Denies redness or eye pain HENT: Denies nasal congestion or sore throat Respiratory: Denies cough, reports shortness of breath Cardiovascular: Reports chest pain, denies palpitations GI: Denies abdominal pain, nausea, or vomiting Musculoskeletal: Reports back pain, denies joint pain Integument: Denies rash or skin lesions Neurologic: Reports headache, denies focal weakness or sensory changes Complete systems were reviewed and found to be within normal limits, except as documented in this note. Heart Score: HEART Score for Chest Pain: HEART Score for Chest Pain Response (Comments) Value History Slighlty/Non-Suspicious 0 ECG Normal 0 Age < 45 0 Risk Factors >3 Risk Factors or Hx CAD 2 Troponin < Normal Limit 0 Total 2 Risk Factors: Risk Factors: DM, Current or recent (<one month) smoker, HTN, HLP, family history of CAD, obesity. Risk Scores: Score 0 - 3: 2.5% MACE over next 6 weeks - Discharge Home Score 4 - 6: 20.3% MACE over next 6 weeks - Admit for Clinical Observation Score 7 - 10: 72.7% MACE over next 6 weeks - Early Invasive Strategies Current Medications: Current Medications Medications (Trade) Dose Ordered Sig/Too Start Time Stop Time Status Last Admin Dose Admin Ketorolac Tromethamine (Toradol 15mg Vial) 15 mg 1X ONCE 08/23/20 20:30 08/23/20 20:31 DC Lorazepam (Ativan Inj) 0.5 mg 1X ONCE 08/23/20 20:45 08/23/20 20:46 Sodium Chloride 1,000 ml @ 1,000 mls/hr 1X ONCE 08/23/20 20:30 08/23/20 21:29 Allergies: Allergies: Allergies Coded Allergies Type Severity Reaction Last Updated Verified metronidazole Allergy Intermediate Hives 12/05/17 Yes Physical Exam: PE: Constitutional: Well developed, well nourished, no acute distress, non-toxic appearance HENT: Normocephalic, atraumatic Eyes: PERRL, EOMI, conjunctiva normal, no discharge Neck: Normal range of motion, no tenderness, supple Lungs & Thorax: Short quick inhalations present throughout exam, equal chest rise and fall Abdomen: Soft, tenderness in LUQ along ribs Skin: Warm, dry, no erythema, track ying present bilaterally on UE Back: No tenderness, no CVA tenderness Extremities: No tenderness, ROM intact, no edema, track ying as noted above Neurologic: Alert and oriented X 3, normal motor function, normal sensory function, no focal deficits noted Psychologic: Affect normal, judgment impaired Current Patient Data: Labs: Laboratory Tests Test 08/23/20 20:10 White Blood Count 8.4 x10^3/uL (4.0-11.0) Red Blood Count 4.48 x10^6/uL (3.50-5.40) Hemoglobin 12.9 g/dL (12.0-15.5) Hematocrit 39.3 % (36.0-47.0) Mean Corpuscular Volume 88 fL (79-100) Mean Corpuscular Hemoglobin 29 pg (25-35) Mean Corpuscular Hemoglobin Concent 33 g/dL (31-37) Red Cell Distribution Width 19.6 % (11.5-14.5) H Platelet Count 456 x10^3/uL (140-400) H Neutrophils (%) (Auto) 54 % (31-73) Lymphocytes (%) (Auto) 35 % (24-48) Monocytes (%) (Auto) 8 % (0-9) Eosinophils (%) (Auto) 2 % (0-3) Basophils (%) (Auto) 1 % (0-3) Neutrophils # (Auto) 4.5 x10^3/uL (1.8-7.7) Lymphocytes # (Auto) 3.0 x10^3/uL (1.0-4.8) Monocytes # (Auto) 0.7 x10^3/uL (0.0-1.1) Eosinophils # (Auto) 0.1 x10^3/uL (0.0-0.7) Basophils # (Auto) 0.0 x10^3/uL (0.0-0.2) Laboratory Tests 08/23/20 20:10 Vital Signs: Vital Signs Date Time Temp Pulse Resp B/P (MAP) Pulse Ox O2 Delivery O2 Flow Rate FiO2 08/23/20 20:05 98.6 135 32 162/89 (113) 98 Room Air 98.6 EKG: EKG: @20:05, sinus tachycardia at a rate of 138bpm, no ST segment elevations, Q wave present in leads II/III/aVF, QRS 92ms, QT/QTc 300ms/462ms Radiology/Procedures: Radiology/Procedures: PROCEDURE: CHEST AP ONLY Exam: Chest one view INDICATION: Pain TECHNIQUE: Frontal view of the chest Comparisons: None FINDINGS: The cardiomediastinal silhouette and pulmonary vessels are within normal limits. The lung and pleural spaces are clear. IMPRESSION: No acute cardiopulmonary process. Electronically signed by: Errol Bose MD (08/23/2020 10:24 PM) [facility] Course & Med Decision Making: Course & Med Decision Making Pertinent Labs and Imaging studies reviewed. (See chart for details) Patient is a 35 year old female presenting with rib pain. Patient complaining of chest pain with tachycardia. Troponin normal, d-dimer normal, chest x-ray shows no acute findings. Labs unremarkable. Urine toxicology positive for alcohol. UA positive for nitrites, rocephin provided. Prescription for keflex provided for home. Ketorolac, Ativan, and IV fluids provided for symptomatic relief. Prescription for pepcid provided for home. Patient stable for discharge with outpatient follow-up with PCP, list of [facility] family medicine physicians provided. Discussed findings and plan with patient, who acknowledges understanding and agreement. Gianna Disclaimer: Gianna Disclaimer: This electronic medical record was generated, in whole or in part, using a voice recognition dictation system. Departure Departure Impression: Primary Impression: Atypical chest pain Additional Impressions: Alcohol intoxication Qualified Codes: F10.920 - Alcohol use, unspecified with intoxication, uncomplicated Anxiety UTI (urinary tract infection) Qualified Codes: N30.00 - Acute cystitis without hematuria Disposition: HOME SELF CARE/HOMELESS Condition: STABLE Referrals: PIERCE MARTINO MD (PCP) Patient Instructions: Alcohol Intoxication, Zoyk-ps-Sqlj, Alcohol and Drug Addiction, Finding Treatment, Alcoholic Gastritis-Brief, Anxiety and Panic Attac ks, Mgpy-ey-Wxoq, Chest Pain (Nonspecific), Pqld-oc-Mjxj, How Much is Too Much Alcohol, Qufv-qc-Ngrz, Urinary Tract Infection, Xmwv-kb-Bzgw Scripts Cephalexin (KEFLEX) 500 Mg Capsule 500 MG PO TID for 7 Days, #21 CAP Prov: LUIS MCGINNIS DO 08/24/20 Famotidine (PEPCID) 20 Mg Tablet 20 MG PO BID, #14 TAB Prov: LUIS MCGINNIS DO 08/24/20 LUIS MCGINNIS DO Aug 23, 2020 21:12
[2020-08-23 21:13] LABS: BACTERIA,URINE MANY /HPF (0-FEW); RBC,URINE OCC /HPF (0-2)
[2020-08-23 21:15] LABS: AMPHETAMINE/METHAMPHETAMINE NEG (NEG); BARBITURATES NEG (NEG); BENZODIAZEPINES NEG (NEG); CANNABINOIDS NEG (NEG); COCAINE NEG (NEG); METHADONE NEG (NEG); OPIATES NEG (NEG); PHENCYCLIDINE NEG (NEG)
[2020-08-23] MEDS ORDERED: cefTRIAXone IV Push 1 GM VIAL. IVP ONE (22:00)
--- NOTE | 2020-08-23 22:27 | RAD ---
Exam: Chest one view INDICATION: Pain TECHNIQUE: Frontal view of the chest Comparisons: None FINDINGS: The cardiomediastinal silhouette and pulmonary vessels are within normal limits. The lung and pleural spaces are clear. IMPRESSION: No acute cardiopulmonary process. Electronically signed by: Errol Bose MD (08/23/2020 10:24 PM) [facility]
[2020-08-23] MEDS ORDERED: ORPHENADRINE CITRATE 60 MG/2 ML VIAL. IV ONE (22:30)
[2020-08-24 00:12] VITALS: BP 138/63
[2020-08-24] MEDS ORDERED: FAMO-63 PO (00:25)
[2020-08-24] MEDS ORDERED: CEPH-264 PO (00:25)
--- NOTE | 2020-08-24 07:28 | EKG ---
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
== END 2020-08-24 00:52 | disposition home or self-care (01) ==
LOC: ER 19:49
DX: N30.00 Acute cystitis without hematuria (principal); R07.2 Precordial pain; R06.02 Shortness of breath; R00.0 Tachycardia, unspecified; M54.9 Dorsalgia, unspecified; F17.200 Nicotine dependence, unspecified, uncomplicated; K58.9 Irritable bowel syndrome, unspecified; Z90.49 Acquired absence of other specified parts of digestive tract; Z98.51 Tubal ligation status; Z90.710 Acquired absence of both cervix and uterus; Z95.5 Presence of coronary angioplasty implant and graft; Z88.3 Allergy status to other anti-infective agents
CPT/HCPCS: 36415; 71045; 80053; 80307; 81001; 81025; 83690; 83735; 83880; 84484; 85025; 85379; 87086; 93005; 96361; 96374; 96375; 99285; G0480; J0696; J1885; J2060; J2360; J7030

== ENCOUNTER 2020-09-10 14:18 | Emergency (ER) | payer MEDICAID ==
[~2020-09-10] VITALS: Ht 162.6 cm; Wt 77.2 kg
[~2020-09-10 14:18] MED LIST changes: +CEPH-264 PO; +FAMO-63 PO
[2020-09-10] MEDS ORDERED: IV NORMAL SALINE 1000ML BAG 1,000 ML IV SCH (14:30)
[2020-09-10] MEDS ORDERED: hydrOXYzine 25 MG TABLET PO ONE (14:30)
[2020-09-10 14:36] LABS: BILIRUBIN,URINE NEGATIVE (NEG); CLARITY,URINE CLEAR; COLOR,URINE YELLOW; NITRITE,URINE NEGATIVE (NEG); PH,URINE 7.5 (<5.0-8.0); PROTEIN,URINE NEGATIVE (NEG-TRACE); UROBILINOGEN,URINE 0.2 mg/dL (0.2 mg/dL)
[2020-09-10 14:40] LABS: BASO # 0.1 x10^3/uL (0.0-0.2); BASO % 1 % (0-3); EOS # 0.1 x10^3/uL (0.0-0.7); EOS % 1 % (0-3); HEMATOCRIT 36.8 % (36.0-47.0); HEMOGLOBIN 12.2 g/dL (12.0-15.5); LYMPH # 2.3 x10^3/uL (1.0-4.8); LYMPH % 35 % (24-48); MEAN CORPUSCULAR HEMOGLOBIN 29 pg (25-35); MEAN CORPUSCULAR HGB CONC 33 g/dL (31-37); MEAN CORPUSCULAR VOLUME 88 fL (79-100); MONO # 0.4 x10^3/uL (0.0-1.1); MONO % 6 % (0-9); NEUT # 3.7 x10^3/uL (1.8-7.7); NEUT % 56 % (31-73); PLATELET COUNT 381 x10^3/uL (140-400); RED BLOOD COUNT 4.18 x10^6/uL (3.50-5.40); RED CELL DISTRIBUTION WIDTH 21.7 % (11.5-14.5); WHITE BLOOD COUNT 6.6 x10^3/uL (4.0-11.0)
[2020-09-10 14:42] LABS: BARBITURATES NEG (NEG); BENZODIAZEPINES NEG (NEG); CANNABINOIDS NEG (NEG); COCAINE NEG (NEG); METHADONE NEG (NEG); OPIATES NEG (NEG); PHENCYCLIDINE NEG (NEG)
[2020-09-10 14:43] LABS: AMPHETAMINE/METHAMPHETAMINE NEG (NEG)
[2020-09-10 14:51] LABS: BACTERIA,URINE 0 /HPF (0-FEW); RBC,URINE 0 /HPF (0-2); WBC,URINE 0 /HPF (0-4)
[2020-09-10 15:17] LABS: CALCIUM 8.3 mg/dL (8.5-10.1); CREATININE 0.6 mg/dL (0.6-1.0); GFR 113.1; POTASSIUM 3.5 mmol/L (3.5-5.1)
--- NOTE | 2020-09-10 15:21 | PHYS DOC ---
Past Medical History Past Medical History: Anxiety, Depression, Diverticulosis, IBS, Kidney Stone, Other Additional Past Medical Histor: Ischemic colitis, dumping syndrome, prolapse bladder and rectum,hiatal junaid Past Surgical History: Cholecystectomy, Gastric Bypass, Hysterectomy, Tubal ligation, Other Additional Past Surgical Histo: bladder x3,vag lift,low back sx NOS,cystoscopy w/ stent,pelvic floor,HEMOR Smoking Status: Current Every Day Smoker Alcohol Use: Occasionally Drug Use: None General Adult EDM: Chief Complaint: ANXIETY/PANIC ATTACK HPI: HPI: Patient is a 35 year old female who presents with here per EMS because she states that her son called because she has drinking 1/2 pint of vodka and is depressed and was having a panic attack. She states about a month ago she was at for a week at the [facility]. She states nobody helps her and nobody listens to her. She denies suicidal ideation or homicidal ideation. She states that she is depressed. She states there have been many deaths in the family. She states she has a lot going on medical ng. Patient has a history of anxiety, depression, ischemic colitis, diverticulosis, IBS, kidney stones, gastric bypass, hysterectomy, smoker, tubal ligation, bladder surgeries, back surgeries, vaginal lift, cholecystectomy. Review of Systems: Review of Systems: Constitutional: Denies fever or chills. [] Eyes: Denies change in visual acuity. [] HENT: Denies nasal congestion or sore throat. [] Respiratory: Denies cough or shortness of breath. [] Cardiovascular: Denies chest pain or edema. [] GI: Denies abdominal pain, nausea, vomiting, bloody stools or diarrhea. [] : Denies dysuria. [] Musculoskeletal: Denies back pain or joint pain. [] Integument: Denies rash. [] Neurologic: Denies headache, focal weakness or sensory changes. [] Endocrine: Denies polyuria or polydipsia. [] Lymphatic: Denies swollen glands. [] Psychiatric: + depression or +anxiety, + alcohol intoxication. [] Heart Score: Risk Factors: Risk Factors: DM, Current or recent (<one month) smoker, HTN, HLP, family history of CAD, obesity. Risk Scores: Score 0 - 3: 2.5% MACE over next 6 weeks - Discharge Home Score 4 - 6: 20.3% MACE over next 6 weeks - Admit for Clinical Observation Score 7 - 10: 72.7% MACE over next 6 weeks - Early Invasive Strategies Current Medications: Current Medications Medications (Trade) Dose Ordered Sig/Too Start Time Stop Time Status Last Admin Dose Admin Hydroxyzine HCl (Atarax) 25 mg 1X ONCE 09/10/20 14:30 09/10/20 14:31 DC 09/10/20 14:30 25 MG Lorazepam (Ativan Inj) 0.25 mg 1X ONCE 09/10/20 14:30 09/10/20 14:31 Cancel Sodium Chloride 1,000 ml @ 1,000 mls/hr Q1H 09/10/20 14:30 09/10/20 15:29 09/10/20 14:30 1,000 MLS/HR Allergies: Allergies: Allergies Coded Allergies Type Severity Reaction Last Updated Verified metronidazole Allergy Intermediate Hives 12/05/17 Yes Physical Exam: PE: Constitutional: Well developed, well nourished, no acute distress, non-toxic appearance. [] HENT: Normocephalic, atraumatic, bilateral external ears normal, oropharynx moist, no oral exudates, nose normal. [] Eyes: PERRLA, EOMI, conjunctiva normal, no discharge. [] Neck: Normal range of motion, no tenderness, supple, no stridor. [] Cardiovascular:Heart rate regular rhythm, no murmur [] Lungs & Thorax: Bilateral breath sounds clear to auscultation [] Abdomen: Bowel sounds normal, soft, no tenderness, no masses, no pulsatile masses. [] Skin: Warm, dry, no erythema, no rash. [] Back: No tenderness, no CVA tenderness. [] Extremities: No tenderness, no cyanosis, no clubbing, ROM intact, no edema. [] Neurologic: Alert and oriented X 3, normal motor function, normal sensory function, no focal deficits noted. [] Psychologic: Affect normal, judgement normal, mood normal. Alcohol intoxication [] Current Patient Data: Labs: Laboratory Tests Test 09/10/20 14:26 09/10/20 14:30 09/10/20 14:42 Urine Collection Type Unknown Urine Color Yellow Urine Clarity Clear Urine pH 7.5 (<5.0-8.0) Urine Specific [place] <=1.005 (1.000-1.030) Urine Protein Negative mg/dL (NEG-TRACE) Urine Glucose (UA) Negative mg/dL (NEG) Urine Ketones (Stick) Negative mg/dL (NEG) Urine Blood Negative (NEG) Urine Nitrite Negative (NEG) Urine Bilirubin Negative (NEG) Urine Urobilinogen Dipstick 0.2 mg/dL (0.2 mg/dL) Urine Leukocyte Esterase Negative (NEG) Urine RBC 0 /HPF (0-2) Urine WBC 0 /HPF (0-4) Urine Squamous Epithelial Cells Few /LPF Urine Bacteria 0 /HPF (0-FEW) Urine Opiates Screen Neg (NEG) Urine Methadone Screen Neg (NEG) Urine Barbiturates Neg (NEG) Urine Phencyclidine Screen Neg (NEG) Urine Amphetamine/Methamphetamine Neg (NEG) Urine Benzodiazepines Screen Neg (NEG) Urine Cocaine Screen Neg (NEG) Urine Cannabinoids Screen Neg (NEG) Urine Ethyl Alcohol Pos (NEG) White Blood Count 6.6 x10^3/uL (4.0-11.0) Red Blood Count 4.18 x10^6/uL (3.50-5.40) Hemoglobin 12.2 g/dL (12.0-15.5) Hematocrit 36.8 % (36.0-47.0) Mean Corpuscular Volume 88 fL (79-100) Mean Corpuscular Hemoglobin 29 pg (25-35) Mean Corpuscular Hemoglobin Concent 33 g/dL (31-37) Red Cell Distribution Width 21.7 % (11.5-14.5) H Platelet Count 381 x10^3/uL (140-400) Neutrophils (%) (Auto) 56 % (31-73) Lymphocytes (%) (Auto) 35 % (24-48) Monocytes (%) (Auto) 6 % (0-9) Eosinophils (%) (Auto) 1 % (0-3) Basophils (%) (Auto) 1 % (0-3) Neutrophils # (Auto) 3.7 x10^3/uL (1.8-7.7) Lymphocytes # (Auto) 2.3 x10^3/uL (1.0-4.8) Monocytes # (Auto) 0.4 x10^3/uL (0.0-1.1) Eosinophils # (Auto) 0.1 x10^3/uL (0.0-0.7) Basophils # (Auto) 0.1 x10^3/uL (0.0-0.2) Platelet Estimate Pending POC Urine HCG, Qualitative Hcg negative (Negative) Laboratory Tests 09/10/20 14:30 Vital Signs: Vital Signs Date Time Temp Pulse Resp B/P (MAP) Pulse Ox O2 Delivery O2 Flow Rate FiO2 09/10/20 14:20 98.5 115 28 154/112 (126) 99 Room Air 98.5 EKG: EKG: [] Radiology/Procedures: Radiology/Procedures: [] Course & Med Decision Making: Course & Med Decision Making Pertinent Labs and Imaging studies reviewed. (See chart for details) See HPI. Alert and oriented x4. Patient is highly intoxicated. Speaks in full clear sentences. I have called and talked to Madhu from PAT team and he states he will be in to speak with the patient. Patient at this time agrees to talk to our psych eval her. She is given a liter of normal saline fluids. Her vital signs have normalized since her initial presentation by EMS. She is calm and cooperative at this time. THEE Moon went and saw the patient spoke with her. He states that she is safe to go home. He gave her resources and is going to get her set up with [facility]. He states the patient was in agreement to all this. He states that she is safe to go home when we deem so. Her alcohol level was 421. We will continue to watch the patient and let her sober up before releasing her. 1910: Patient is up and walking and steady on her feet. She remains alert and oriented x4. She states she is ready to go home. Patient's son stated he would come and get her and bring her home. Patient is stable and is discharged home. [] Dragon Disclaimer: Dragmargie Disclaimer: This electronic medical record was generated, in whole or in part, using a voice recognition dictation system. Departure Departure Impression: Primary Impression: Alcohol intoxication Qualified Codes: F10.920 - Alcohol use, unspecified with intoxication, unco mplicated Additional Impression: Depression Qualified Codes: F32.9 - Major depressive disorder, single episode, unspecified Disposition: 01 DC HOME SELF CARE/HOMELESS Condition: STABLE Referrals: NO PCP (PCP) Patient Instructions: Alcohol Intoxication, Depression, Adult Additional Instructions: Follow-up with [facility] and use the resources that are psych eval or gave you. Follow-up as soon as possible. Drink plenty of fluids. Do not drink any alcohol. SHARON HOWARD HYPERTRICHOLOGIST Sep 10, 2020 15:21
[2020-09-10 15:22] LABS: ANISOCYTOSIS MOD; HYPOCHROMIA SLIGHT; PLT ESTIMATE ADEQUATE (ADEQUATE); POLYCHROMASIA SLIGHT
[2020-09-10 15:23] LABS: ALBUMIN 3.5 g/dL (3.4-5.0); DIRECT BILIRUBIN 0.1 mg/dL (0.0-0.2); MAGNESIUM 2.4 mg/dL (1.8-2.4); TOTAL BILIRUBIN 0.3 mg/dL (0.2-1.0); TOTAL PROTEIN 7.2 g/dL (6.4-8.2)
[2020-09-10 15:35] LABS: SALIC < 2.8 mg/dL (2.8-20.0)
[2020-09-10 15:37] LABS: ACETAMIN < 2 mcg/ml (10-30); ETHANOL 421 mg/dL (0-10)
[2020-09-10 19:00] VITALS: BP 130/96
== END 2020-09-10 19:29 | disposition home or self-care (01) ==
LOC: ER 14:18
DX: F10.920 Alcohol use, unspecified with intoxication, uncomplicated (principal); Y90.8 Blood alcohol level of 240 mg/100 ml or more; F32.9 Major depressive disorder, single episode, unspecified; K58.9 Irritable bowel syndrome, unspecified; F17.200 Nicotine dependence, unspecified, uncomplicated; Z95.5 Presence of coronary angioplasty implant and graft; Z88.3 Allergy status to other anti-infective agents
CPT/HCPCS: 36415; 80048; 80076; 80307; 80329; 81001; 81025; 83735; 85025; 96360; 99285; G0480; J7030

== ENCOUNTER 2020-10-08 10:17 | Emergency (ER) | payer MEDICAID ==
[~2020-10-08] VITALS: Ht 162.6 cm; Wt 63.6 kg
[~2020-10-08 10:17] MED LIST changes: +NAPR-699 PO; -NAPR250T6 PO; -OMEP40CA45 PO; +OMEP40CA7 PO
[2020-10-08 10:58] LABS: BASO % 0 % (0-3); EOS % 0 % (0-3); HEMATOCRIT 38.2 % (36.0-47.0); HEMOGLOBIN 12.7 g/dL (12.0-15.5); LYMPH # 1.1 x10^3/uL (1.0-4.8); LYMPH % 19 % (24-48); MEAN CORPUSCULAR HEMOGLOBIN 30 pg (25-35); MEAN CORPUSCULAR HGB CONC 33 g/dL (31-37); MEAN CORPUSCULAR VOLUME 90 fL (79-100); MONO # 0.4 x10^3/uL (0.0-1.1); MONO % 7 % (0-9); NEUT # 4.4 x10^3/uL (1.8-7.7); NEUT % 74 % (31-73); PLATELET COUNT 314 x10^3/uL (140-400); RED BLOOD COUNT 4.26 x10^6/uL (3.50-5.40); RED CELL DISTRIBUTION WIDTH 20.7 % (11.5-14.5)
[2020-10-08 10:59] LABS: BILIRUBIN,URINE NEGATIVE (NEG); CLARITY,URINE CLEAR; COLOR,URINE YELLOW; NITRITE,URINE NEGATIVE (NEG); PROTEIN,URINE NEGATIVE (NEG-TRACE)
[2020-10-08 11:06] LABS: AMPHETAMINE/METHAMPHETAMINE NEG (NEG); BARBITURATES NEG (NEG); BENZODIAZEPINES NEG (NEG); CANNABINOIDS NEG (NEG); COCAINE NEG (NEG); METHADONE NEG (NEG); OPIATES POS (NEG); PHENCYCLIDINE NEG (NEG)
[2020-10-08 11:10] LABS: CALCIUM 9.3 mg/dL (8.5-10.1); CREATININE 0.6 mg/dL (0.6-1.0); GFR 113.1; POTASSIUM 3.6 mmol/L (3.5-5.1)
[2020-10-08 11:15] LABS: ALBUMIN 4.3 g/dL (3.4-5.0); ALBUMIN/GLOBULIN RATIO 1.2 (1.0-1.7); MAGNESIUM 1.4 mg/dL (1.8-2.4); TOTAL BILIRUBIN 0.3 mg/dL (0.2-1.0)
[2020-10-08] MEDS ORDERED: IV NORMAL SALINE 1000ML BAG 1,000 ML IV ONE (11:30)
[2020-10-08 11:35] LABS: HYALINE CASTS, URINE OCCASIONAL /HPF
[2020-10-08 11:37] LABS: AMORPHOUS SEDIMENT,UR PRESENT /HPF; BACTERIA,URINE 0 /HPF (0-FEW); RBC,URINE 0 /HPF (0-2); WBC,URINE OCC /HPF (0-4)
[2020-10-08 12:02] LABS: ANISOCYTOSIS MOD; PLT ESTIMATE ADEQUATE (ADEQUATE)
[2020-10-08] MEDS ORDERED: MAGNESIUM SULFATE 2GM 50 ML IV ONE (12:15)
[2020-10-08 12:25] VITALS: BP 174/83
[2020-10-08] MEDS ORDERED: LORA-434 PO (12:41)
--- NOTE | 2020-10-08 12:41 | PHYS DOC ---
Past Medical History Past Medical History: Anxiety, Depression, Diverticulosis, IBS, Kidney Stone, Other Additional Past Medical Histor: Ischemic colitis, dumping syndrome, prolapse bladder and rectum,hiatal junaid Past Surgical History: Cholecystectomy, Gastric Bypass, Hysterectomy, Tubal ligation, Other Additional Past Surgical Histo: bladder x3,vag lift,low back sx NOS,cystoscopy w/ stent,pelvic floor,HEMOR Smoking Status: Current Every Day Smoker Alcohol Use: Occasionally Drug Use: None General Adult EDM: Chief Complaint: NEURO SYMPTOMS/DEFICITS HPI: HPI: Patient is a 35 year old female who presented to ER due to anxiety and shakiness. Patient woke up this morning with the symptoms. Patient states she drank alcohol daily, the last time she drank anything was about 30 hours ago. Patient denies any drug use. Patient denies suicidal ideation. Patient says she fell 3 days ago and hit her head on the ground, she was not 100% sure if she lost consciousness or not but she denies any headache or any neck pain at this time. Patient denies any nausea vomiting, no chest pain, no abdominal pain Review of Systems: Review of Systems: Constitutional: Denies fever or chills. [] Eyes: Denies change in visual acuity. [] HENT: Denies nasal congestion or sore throat. [] Respiratory: Denies cough or shortness of breath. [] Cardiovascular: Denies chest pain or edema. [] GI: Denies abdominal pain, nausea, vomiting, bloody stools or diarrhea. [] : Denies dysuria. [] Musculoskeletal: Denies back pain or joint pain. [] Integument: Denies rash. [] Neurologic: Denies headache, focal weakness or sensory changes. [] Endocrine: Denies polyuria or polydipsia. [] Lymphatic: Denies swollen glands. [] Psychiatric: Positive for anxiety, DENIED SUICIDAL IDEATION, DENIED HOMICIDAL IDEATION. Heart Score: Risk Factors: Risk Factors: DM, Current or recent (<one month) smoker, HTN, HLP, family history of CAD, obesity. Risk Scores: Score 0 - 3: 2.5% MACE over next 6 weeks - Discharge Home Score 4 - 6: 20.3% MACE over next 6 weeks - Admit for Clinical Observation Score 7 - 10: 72.7% MACE over next 6 weeks - Early Invasive Strategies Current Medications: Current Medications Medications (Trade) Dose Ordered Sig/Too Start Time Stop Time Status Last Admin Dose Admin Lorazepam (Ativan Inj) 2 mg 1X ONCE 10/08/20 11:30 10/08/20 11:31 DC 10/08/20 11:34 2 MG Magnesium Sulfate 50 ml @ 25 mls/hr 1X ONCE 10/08/20 12:15 10/08/20 14:14 10/08/20 12:13 25 MLS/HR Sodium Chloride 1,000 ml @ 1,000 mls/hr 1X ONCE 10/08/20 11:30 10/08/20 12:29 DC 10/08/20 11:34 1,000 MLS/HR Allergies: Allergies: Allergies Coded Allergies Type Severity Reaction Last Updated Verified metronidazole Allergy Intermediate Hives 12/05/17 Yes Physical Exam: PE: Constitutional: Well developed, well nourished, no acute distress, non-toxic appearance. [] HENT: Normocephalic, atraumatic, bilateral external ears normal, oropharynx moist, no oral exudates, nose normal. [] Eyes: PERRLA, EOMI, conjunctiva normal, no discharge. [] Neck: Normal range of motion, no tenderness, supple, no stridor. [] Cardiovascular: SINUS TACHYCARDIA, regular rhythm, no murmur [] Lungs & Thorax: Bilateral breath sounds clear to auscultation [] Abdomen: Bowel sounds normal, soft, no tenderness, no masses, no pulsatile masses. [] Skin: Warm, dry, no erythema, no rash. [] Back: No tenderness, no CVA tenderness. [] Extremities: No tenderness, no cyanosis, no clubbing, ROM intact, no edema. [] Neurologic: Alert and oriented X 3, normal motor function, normal sensory function, no focal deficits noted. [] Psychologic: Patient appeared to be very anxious, shaky, denies suicidal ideation denies homicidal ideation. Current Patient Data: Labs: Laboratory Tests Test 10/08/20 10:26 10/08/20 10:30 10/08/20 10:43 Glucose (Fingerstick) 100 mg/dL (70-99) H White Blood Count 6.0 x10^3/uL (4.0-11.0) Red Blood Count 4.26 x10^6/uL (3.50-5.40) Hemoglobin 12.7 g/dL (12.0-15.5) Hematocrit 38.2 % (36.0-47.0) Mean Corpuscular Volume 90 fL (79-100) Mean Corpuscular Hemoglobin 30 pg (25-35) Mean Corpuscular Hemoglobin Concent 33 g/dL (31-37) Red Cell Distribution Width 20.7 % (11.5-14.5) H Platelet Count 314 x10^3/uL (140-400) Neutrophils (%) (Auto) 74 % (31-73) H Lymphocytes (%) (Auto) 19 % (24-48) L Monocytes (%) (Auto) 7 % (0-9) Eosinophils (%) (Auto) 0 % (0-3) Basophils (%) (Auto) 0 % (0-3) Neutrophils # (Auto) 4.4 x10^3/uL (1.8-7.7) Lymphocytes # (Auto) 1.1 x10^3/uL (1.0-4.8) Monocytes # (Auto) 0.4 x10^3/uL (0.0-1.1) Eosinophils # (Auto) 0.0 x10^3/uL (0.0-0.7) Basophils # (Auto) 0.0 x10^3/uL (0.0-0.2) Platelet Estimate Adequate (ADEQUATE) Anisocytosis Mod Urine Collection Type Unknown Urine Color Yellow Urine Clarity Clear Urine pH 6.0 (<5.0-8.0) Urine Specific [place] 1.015 (1.000-1.030) Urine Protein Negative mg/dL (NEG-TRACE) Urine Glucose (UA) Negative mg/dL (NEG) Urine Ketones (Stick) Negative mg/dL (NEG) Urine Blood Negative (NEG) Urine Nitrite Negative (NEG) Urine Bilirubin Negative (NEG) Urine Urobilinogen Dipstick 1.0 mg/dL (0.2 mg/dL) Urine Leukocyte Esterase Trace (NEG) Urine RBC 0 /HPF (0-2) Urine WBC Occ /HPF (0-4) Urine Squamous Epithelial Cells Few /LPF Urine Amorphous Sediment Present /HPF Urine Bacteria 0 /HPF (0-FEW) Urine Hyaline Casts Occasional /HPF Urine Mucus Mod /LPF Sodium Level 141 mmol/L (136-145) Potassium Level 3.6 mmol/L (3.5-5.1) Chloride Level 101 mmol/L (98-107) Carbon Dioxide Level 23 mmol/L (21-32) Anion Gap 17 (6-14) H Blood Urea Nitrogen 8 mg/dL (7-20) Creatinine 0.6 mg/dL (0.6-1.0) Estimated GFR (Cockcroft-Gault) 113.1 BUN/Creatinine Ratio 13 (6-20) Glucose Level 91 mg/dL (70-99) Calcium Level 9.3 mg/dL (8.5-10.1) Magnesium Level 1.4 mg/dL (1.8-2.4) L Total Bilirubin 0.3 mg/dL (0.2-1.0) Aspartate Amino Transferase (AST) 44 U/L (15-37) H Alanine Aminotransferase (ALT) 44 U/L (14-59) Alkaline Phosphatase 70 U/L (46-116) Total Protein 8.0 g/dL (6.4-8.2) Albumin 4.3 g/dL (3.4-5.0) Albumin/Globulin Ratio 1.2 (1.0-1.7) Urine Opiates Screen Pos (NEG) Urine Methadone Screen Neg (NEG) Urine Barbiturates Neg (NEG) Urine Phencyclidine Screen Neg (NEG) Urine Amphetamine/Methamphetamine Neg (NEG) Urine Benzodiazepines Screen Neg (NEG) Urine Cocaine Screen Neg (NEG) Urine Cannabinoids Screen Neg (NEG) Ethyl Alcohol Level 39 mg/dL (0-10) H Urine Ethyl Alcohol Pos (NEG) POC Urine HCG, Qualitative Hcg negative (Negative) Laboratory Tests 10/08/20 10:30 Laboratory Tests 10/08/20 10:30 Vital Signs: Vital Signs Date Time Temp Pulse Resp B/P (MAP) Pulse Ox O2 Delivery O2 Flow Rate FiO2 10/08/20 11:55 100 178/93 (121) 99 Room Air 10/08/20 10:30 99.0 22 99.0 EKG: EKG: EKG was done at 1034, heart rate of 113 bpm, sinus rhythm, no ST segment elevation. Radiology/Procedures: Radiology/Procedures: [] Course & Med Decision Making: Course & Med Decision Making Pertinent Labs and Imaging studies reviewed. (See chart for details) Patient is a 35-year-old female who presented to ER due to anxiety and shakiness. Patient is suspectED to have symptoms of alcohol withdrawal. Patient was given IV fluid and IV Ativan, patient feLT much better. Patient would like to be discharged home. Gianna Disclaimer: Gianna Disclaimer: This electronic medical record was generated, in whole or in part, using a voice recognition dictation system. Departure Departure Impression: Primary Impression: Alcohol withdrawal Additional Impression: Hypomagnesemia Disposition: 01 DC HOME SELF CARE/HOMELESS Condition: IMPROVED Referrals: NO PCP (PCP) FOLLOW UP WITH YOUR DOCTOR NEEDED Patient Instructions: Alcohol Withdrawal, Hypomagnesemia Additional Instructions: Thank you for visiting our Emergency Department. We appreciate you trusting us with your care. If any additional problems come up don't hesitate to return to visit us. Please follow up with your primary care provider so they can plan additional care if needed and know about the problem that you had. If symptoms worsen come back to the Emergency Department. Any concerning symptoms that start such as chest pain, shortness of air, weakness or numbness on one side of the body, running high fevers or any other concerning symptoms return to the ER. Scripts Lorazepam (ATIVAN) 1 Mg Tablet 1 MG PO QID PRN for ANXIETY, #12 TAB Prov: RUIZ LYNN DO 10/08/20 RUIZ LYNN DO Oct 08, 2020 12:41
--- NOTE | 2020-10-08 13:16 | EKG ---
[facility] [address] [place] [address] Test Date: 2020-10-08 Test Time: 10:34:50 Pat Name: DAYTON MONROE Department: Room: Gender: F Brush Hand: : 1985 Requested By: RUIZ LYNN Order Number: [id number] Reading MD: Measurements Intervals [place] Rate: 113 P: 100 NV: 132 QRS: 30 QRSD: 100 T: 37 QT: 354 QTc: 492 Interpretive Statements SINUS TACHYCARDIA QRS(T) CONTOUR ABNORMALITY CONSIDER ANTEROLATERAL MYOCARDIAL DAMAGE CONSIDER INFERIOR MYOCARDIAL DAMAGE POSSIBLY ABNORMAL ECG RI6.01 No previous ECG available for comparison
== END 2020-10-08 12:55 | disposition home or self-care (01) ==
LOC: ER 10:17
DX: F10.139 Alcohol abuse with withdrawal, unspecified (principal); E83.42 Hypomagnesemia; F41.9 Anxiety disorder, unspecified; F32.9 Major depressive disorder, single episode, unspecified; F17.200 Nicotine dependence, unspecified, uncomplicated; Z87.442 Personal history of urinary calculi; Z90.49 Acquired absence of other specified parts of digestive tract; Z98.51 Tubal ligation status; Z90.710 Acquired absence of both cervix and uterus; Z88.8 Allergy status to other drugs, medicaments and biological substances; Z98.890 Other specified postprocedural states; Y90.1 Blood alcohol level of 20-39 mg/100 ml
CPT/HCPCS: 36415; 80053; 80307; 81001; 81025; 82962; 83735; 85025; 93005; 96361; 96365; 96375; 99284; G0480; J2060; J3475; J7030

== ENCOUNTER 2020-11-03 13:46 | Emergency (ER) | payer MEDICAID ==
[~2020-11-03] VITALS: Ht 162.6 cm; Wt 77.3 kg
[~2020-11-03 13:46] MED LIST changes: +LORA-434 PO; -NAPR-699 PO; +NAPR250T6 PO; +OMEP40CA45 PO; -OMEP40CA7 PO
[2020-11-03 15:31] LABS: BILIRUBIN,URINE NEGATIVE (NEG); CLARITY,URINE CLEAR; COLOR,URINE YELLOW; NITRITE,URINE NEGATIVE (NEG); PH,URINE 6.5 (<5.0-8.0); PROTEIN,URINE NEGATIVE (NEG-TRACE)
[2020-11-03 15:49] LABS: BACTERIA,URINE FEW /HPF (0-FEW)
--- NOTE | 2020-11-03 16:31 | ED.ADGEN ---
Past Medical History Past Medical History: Anxiety, Depression, Diverticulitis, Diverticulosis, IBS, Kidney Stone, Other Additional Past Medical Histor: Ischemic colitis, dumping syndrome, prolapse bladder and rectum,hiatal junaid Past Surgical History: Cholecystectomy, Gastric Bypass, Hysterectomy, Tubal ligation, Other Additional Past Surgical Histo: bladder x3,vag lift,low back sx NOS,cystoscopy w/ stent,pelvic floor,HEMOR Smoking Status: Current Every Day Smoker Alcohol Use: Occasionally Drug Use: None General Adult EDM: Chief Complaint: BLOODY STOOL HPI: HPI: Patient is a 35 year old female who presents to the emergency department with complaints of left lower quadrant abdominal pain, diarrhea, and blood coming from her rectum since yesterday evening. Patient reports that the symptoms began after she ate some eggs with queso and hotdogs. She denies any fever, cough, sore throat, body aches, nausea, vomiting, rash, dysuria, hematuria, or increased urinary frequency. Patient reports a history of diverticulitis, she states that the pain is similar to diverticulitis flares. She currently rates her pain at 10 out of 10 on the pain scale, she denies any alleviating or exacerbating factors. Review of Systems: Review of Systems: Complete ROS is negative unless otherwise noted in HPI. Current Medications: Current Medications Medications (Trade) Dose Ordered Sig/[facility] Start Time Stop Time Status Last Admin Dose Admin Fentanyl Citrate (Fentanyl 2ml Vial) 50 mcg 1X ONCE 11/03/20 17:15 11/03/20 17:16 DC 11/03/20 17:47 50 MCG Info (CONTRAST GIVEN -- Rx MONITORING) 1 each PRN DAILY PRN 11/03/20 17:15 11/05/20 17:14 Iohexol (Omnipaque 300 Mg/ml) 75 ml 1X ONCE 11/03/20 17:15 11/03/20 17:16 DC 11/03/20 17:22 75 ML Ondansetron HCl (Zofran) 4 mg 1X ONCE 11/03/20 17:15 11/03/20 17:16 DC 11/03/20 17:47 4 MG Sodium Chloride 1,000 ml @ 1,000 mls/hr 1X ONCE 11/03/20 17:15 11/03/20 18:14 11/03/20 17:48 1,000 MLS/HR Allergies: Allergies: Allergies Coded Allergies Type Severity Reaction Last Updated Verified metronidazole Allergy Intermediate Hives 12/05/17 Yes Physical Exam: PE: See Above Constitutional: Well developed, well nourished, no acute distress, non-toxic appearance. [] HENT: Normocephalic, atraumatic, bilateral external ears normal, nose normal. [] Eyes: PERRLA, EOMI, conjunctiva normal, no discharge. [] Neck: Normal range of motion, no stridor. [] Cardiovascular:Heart rate regular rhythm Lungs & Thorax: Respirations even and unlabored, no retractions, no respiratory distress Abdomen: soft, lower left quadrant tenderness to palpation, no rebound tenderness, no guarding, no palpable mass, no pulsatile mass Skin: Warm, dry, no erythema, no rash. [] Extremities: No cyanosis, ROM intact, no edema. [] Neurologic: Alert and oriented X 3, no focal deficits noted. [] Psychologic: Affect normal, judgement normal, mood normal. [] Current Patient Data: Labs: Laboratory Tests Test 11/03/20 15:18 11/03/20 16:35 Urine Color Yellow Urine Clarity Clear Urine pH 6.5 (<5.0-8.0) Urine Specific [place] 1.020 (1.000-1.030) Urine Protein Negative mg/dL (NEG-TRACE) Urine Glucose (UA) Negative mg/dL (NEG) Urine Ketones (Stick) 15 mg/dL (NEG) Urine Blood Negative (NEG) Urine Nitrite Negative (NEG) Urine Bilirubin Negative (NEG) Urine Urobilinogen Dipstick 1.0 mg/dL (0.2 mg/dL) Urine Leukocyte Esterase Moderate (NEG) Urine RBC 1-2 /HPF (0-2) Urine WBC 5-10 /HPF (0-4) Urine Squamous Epithelial Cells Mod /LPF Urine Bacteria Few /HPF (0-FEW) Urine Mucus Mod /LPF White Blood Count 6.5 x10^3/uL (4.0-11.0) Red Blood Count 4.34 x10^6/uL (3.50-5.40) Hemoglobin 12.7 g/dL (12.0-15.5) Hematocrit 38.5 % (36.0-47.0) Mean Corpuscular Volume 89 fL (79-100) Mean Corpuscular Hemoglobin 29 pg (25-35) Mean Corpuscular Hemoglobin Concent 33 g/dL (31-37) Red Cell Distribution Width 18.3 % (11.5-14.5) H Platelet Count 319 x10^3/uL (140-400) Neutrophils (%) (Auto) 61 % (31-73) Lymphocytes (%) (Auto) 28 % (24-48) Monocytes (%) (Auto) 9 % (0-9) Eosinophils (%) (Auto) 2 % (0-3) Basophils (%) (Auto) 1 % (0-3) Neutrophils # (Auto) 4.0 x10^3/uL (1.8-7.7) Lymphocytes # (Auto) 1.8 x10^3/uL (1.0-4.8) Monocytes # (Auto) 0.6 x10^3/uL (0.0-1.1) Eosinophils # (Auto) 0.1 x10^3/uL (0.0-0.7) Basophils # (Auto) 0.0 x10^3/uL (0.0-0.2) Sodium Level 141 mmol/L (136-145) Potassium Level 3.1 mmol/L (3.5-5.1) L Chloride Level 104 mmol/L (98-107) Carbon Dioxide Level 26 mmol/L (21-32) Anion Gap 11 (6-14) Blood Urea Nitrogen 8 mg/dL (7-20) Creatinine 0.6 mg/dL (0.6-1.0) Estimated GFR (Cockcroft-Gault) 113.1 BUN/Creatinine Ratio 13 (6-20) Glucose Level 83 mg/dL (70-99) Calcium Level 8.7 mg/dL (8.5-10.1) Magnesium Level 1.7 mg/dL (1.8-2.4) L Total Bilirubin 0.6 mg/dL (0.2-1.0) Aspartate Amino Transferase (AST) 31 U/L (15-37) Alanine Aminotransferase (ALT) 32 U/L (14-59) Alkaline Phosphatase 65 U/L (46-116) Total Protein 7.1 g/dL (6.4-8.2) Albumin 3.5 g/dL (3.4-5.0) Albumin/Globulin Ratio 1.0 (1.0-1.7) Lipase 73 U/L (73-393) Laboratory Tests 11/03/20 16:35 Laboratory Tests 11/03/20 16:35 Vital Signs: Vital Signs Date Time Temp Pulse Resp B/P (MAP) Pulse Ox O2 Delivery O2 Flow Rate FiO2 11/03/20 17:47 16 99 Room Air 11/03/20 14:58 98.5 76 163/99 (120) 98.5 EKG: EKG: [] Heart Score: Risk Factors: Risk Factors: DM, Current or recent (<one month) smoker, HTN, HLP, family history of CAD, obesity. Risk Scores: Score 0 - 3: 2.5% MACE over next 6 weeks - Discharge Home Score 4 - 6: 20.3% MACE over next 6 weeks - Admit for Clinical Observation Score 7 - 10: 72.7% MACE over next 6 weeks - Early Invasive Strategies Radiology/Procedures: Radiology/Procedures: PROCEDURE: CT ABD PELV W/ IV CONTRST ONLY CT SCAN OF THE ABDOMEN AND PELVIS WITH IV CONTRAST. History: Reason: bloody stools LLQ abd pain / Spl. Instructions: IV OMNI 300 75 MLS / History: Comparison:February 22, 2020. Procedure: Contiguous axial images of the abdomen and pelvis were performed after the administration of 75 cc of Isovue 370 IV contrast. Oral contrast: No. Findings: There is prior gastric surgery. There has been prior cholecystectomy. The appendix appears normal. There is mild to moderate wall thickening of the left colon. The urinary bladder is collapsed apparent wall thickening is likely hypertrophy. Liver: Unremarkable Spleen: Unremarkable Pancreas: Unremarkable Adrenal Glands: Unremarkable Kidneys: Unremarkable There is no mass or lymphadenopathy. There is no free air. There is no free fluid. Impression: Left-sided colitis could be inflammatory such as ulcerative colitis or could be infectious such as pseudomembranous colitis. There is no diverticulitis. There is no air in the wall to suggest ischemic colitis. End impression PQRS Compliance Statement: One or more of the following individualized dose reduction techniques were utilized for this examination: 1. Automated exposure control 2. Adjustment of the mA and/or kV according to patient size 3. Use of iterative reconstruction technique Electronically signed by: Demarco Lebron III, MD (11/03/2020 5:50 PM) [id number][] Course & Med Decision Making: Course & Med Decision Making Pertinent Labs and Imaging studies reviewed. (See chart for details) 35-year-old female presents emergency department with complaints of nausea, vomiting, diarrhea, bloody diarrhea, and lower left quadrant abdominal pain that began yesterday evening. CBC was unremarkable. CMP revealed hypokalemia with 3.1 and mild hypomagnesia of 1.7. UA revealed 5-10 white blood cells however most likely contaminated patient denied any urinary symptoms. CT patient's abdomen revealed colitis in the lower left quadrant. Prescriptions were written for Zofran, hydrocodone, Cipro, and clindamycin. The clindamycin was written because of the patient's allergy to Flagyl. Patient was encouraged to follow-up with her primary care doctor in the next 1 to 2 days, return to the ER if symptoms worsen or fever develops. Patient verbalized an understanding of home care, medications, follow-up, and return to ED instructions and was in agreement with the plan of care. [] Dragon Disclaimer: Dragon Disclaimer: This electronic medical record was generated, in whole or in part, using a voice recognition dictation system. Departure Departure Impression: Primary Impression: Nausea and vomiting in adult Additional Impression: Abdominal pain Disposition: 01 DC HOME SELF CARE/HOMELESS Condition: STABLE Referrals: NO PCP (PCP) Patient Instructions: Colitis, Diet for Diarrhea, Adult, Nausea and Vomiting, [id number] Additional Instructions: Fill prescriptions and use them as directed. Recommend clear fluids for the next 24 hours. Then you may advance to bland foods such as bananas, rice, applesauce, and dry toast. Follow-up with your primary care doctor in the next 1-2 days. Return to the emergency room if your symptoms worsen or if fever develops. Scripts Ondansetron Hcl (ONDANSETRON HCL) 4 Mg Tablet 1 TAB PO PRN Q6HRS PRN for NAUSEA/VOMITING for 3 Days, #10 TAB 0 Refills Prov: SONI CRUM APRN 11/03/20 Hydrocodone Bit/Acetaminophen (HYDROCODONE-APAP 5-325 ) 1 Tab Tablet 0.5-1 TAB PO PRN Q6HRS PRN for SEVERE PAIN 7-10, #10 TAB 0 Refills Prov: SONI CRUM APRN 11/03/20 Ciprofloxacin Hcl (CIPRO) 500 Mg Tablet 1 TAB PO BID for 7 Days, #14 TAB 0 Refills Prov: SONI CRUM APRN 11/03/20 Clindamycin Hcl (CLINDAMYCIN HCL) 150 Mg Capsule 300 MG PO BID for 7 Days, #28 CAP 0 Refills Prov: SONI CRUM APRN 11/03/20 Problem Qualifiers SONI CRUM APRN Nov 03, 2020 16:31
[2020-11-03 16:56] LABS: BASO % 1 % (0-3); EOS # 0.1 x10^3/uL (0.0-0.7); EOS % 2 % (0-3); HEMATOCRIT 38.5 % (36.0-47.0); HEMOGLOBIN 12.7 g/dL (12.0-15.5); LYMPH # 1.8 x10^3/uL (1.0-4.8); LYMPH % 28 % (24-48); MEAN CORPUSCULAR HEMOGLOBIN 29 pg (25-35); MEAN CORPUSCULAR HGB CONC 33 g/dL (31-37); MEAN CORPUSCULAR VOLUME 89 fL (79-100); MONO # 0.6 x10^3/uL (0.0-1.1); MONO % 9 % (0-9); NEUT % 61 % (31-73); PLATELET COUNT 319 x10^3/uL (140-400); RED BLOOD COUNT 4.34 x10^6/uL (3.50-5.40); RED CELL DISTRIBUTION WIDTH 18.3 % (11.5-14.5); WHITE BLOOD COUNT 6.5 x10^3/uL (4.0-11.0)
[2020-11-03 17:11] LABS: CALCIUM 8.7 mg/dL (8.5-10.1); CREATININE 0.6 mg/dL (0.6-1.0); GFR 113.1; POTASSIUM 3.1 mmol/L (3.5-5.1)
[2020-11-03] MEDS ORDERED: ONDANSETRON PF 4 MG/2 ML VIAL. IV ONE (17:15)
[2020-11-03] MEDS ORDERED: fentaNYL PF VIAL 100 MCG/2 ML VIAL IV ONE (17:15)
[2020-11-03] MEDS ORDERED: CONTRAST GIVEN. MC PRN (17:15)
[2020-11-03] MEDS ORDERED: IV NORMAL SALINE 1000ML BAG 1,000 ML IV ONE (17:15)
[2020-11-03] MEDS ORDERED: IOHEXOL 300 MG/ML 100ML VIAL. IV ONE (17:15)
[2020-11-03 17:16] LABS: ALBUMIN 3.5 g/dL (3.4-5.0); MAGNESIUM 1.7 mg/dL (1.8-2.4); TOTAL BILIRUBIN 0.6 mg/dL (0.2-1.0); TOTAL PROTEIN 7.1 g/dL (6.4-8.2)
--- NOTE | 2020-11-03 17:53 | RAD ---
CT SCAN OF THE ABDOMEN AND PELVIS WITH IV CONTRAST. History: Reason: bloody stools LLQ abd pain / Spl. Instructions: IV OMNI 300 75 MLS / History: Comparison:February 22, 2020. Procedure: Contiguous axial images of the abdomen and pelvis were performed after the administration of 75 cc o f Isovue 370 IV contrast. Oral contrast: No. Findings: There is prior gastric surgery. There has been prior cholecystectomy. The appendix appears normal. Th ere is mild to moderate wall thickening of the left colon. The urinary bladder is collapsed apparent wall thickening is likely hypertrophy. Liver: Unremarkable Spleen: Unremarkable Pancreas: Unremarkable Adrenal Glands: Unremarkable Kidneys: Unremarkable There is no mass or lymphadenopathy. There is no free air. There is no free fluid. Impression: Left-sided colitis could be inflammatory such as ulcerative colitis or could be infectious such as ps eudomembranous colitis. There is no diverticulitis. There is no air in the wall to suggest ischemic c olitis. End impression PQRS Compliance Statement: One or more of the following individualized dose reduction techniques were utilized for this examinat ion: 1. Automated exposure control 2. Adjustment of the mA and/or kV according to patient size 3. Use of iterative reconstruction technique Electronically signed by: Demarco Lebron III, MD (11/03/2020 5:50 PM) [id number]
[2020-11-03 18:15] VITALS: BP 138/87
[2020-11-03] MEDS ORDERED: ONDA-84 PO (18:15)
[2020-11-03] MEDS ORDERED: HYDR-2761 PO (18:15)
[2020-11-03] MEDS ORDERED: CLIN150C15 PO (18:15)
[2020-11-03] MEDS ORDERED: CIPR500T94 PO (18:15)
[2020-11-03] MEDS ORDERED: POTASSIUM CHLORIDE 20 MEQ TABLET.ER. PO ONE (18:30)
[2020-11-03] MEDS ORDERED: MAGNESIUM OXIDE 400 MG TABLET PO ONE (18:30)
[2020-11-03] MEDS ORDERED: CLINDAMYCIN HCL 150 MG CAPSULE. PO ONE (18:45)
[2020-11-03] MEDS ORDERED: CIPROFLOXACIN HCL 250 MG TABLET. PO ONE (18:45)
== END 2020-11-03 19:15 | disposition home or self-care (01) ==
LOC: ER 13:46
DX: R10.32 Left lower quadrant pain (principal); R19.7 Diarrhea, unspecified; F41.9 Anxiety disorder, unspecified; F32.9 Major depressive disorder, single episode, unspecified; F17.200 Nicotine dependence, unspecified, uncomplicated; Z90.710 Acquired absence of both cervix and uterus; Z98.51 Tubal ligation status; Z90.49 Acquired absence of other specified parts of digestive tract; Z87.442 Personal history of urinary calculi; Z88.8 Allergy status to other drugs, medicaments and biological substances
CPT/HCPCS: 36415; 74177; 80053; 81001; 83690; 83735; 85025; 87086; 96361; 96374; 96375; 99285; J2405; J3010; J7030; Q9967

== ENCOUNTER 2020-11-04 18:46 | Emergency (ER) | payer MEDICAID ==
[~2020-11-04] VITALS: Ht 167.6 cm; Wt 75.0 kg
[~2020-11-04 18:46] MED LIST changes: +CLIN150C15 PO; +ONDA-84 PO
--- NOTE | 2020-11-04 19:17 | ED.ADGEN ---
Past Medical History Past Medical History: Anxiety, Depression, Diverticulitis, Diverticulosis, IBS, Kidney Stone, Other Additional Past Medical Histor: Ischemic colitis, dumping syndrome, prolapse bladder and rectum,hiatal junaid Past Surgical History: Cholecystectomy, Gastric Bypass, Hysterectomy, Tubal ligation, Other Additional Past Surgical Histo: bladder x3,vag lift,low back sx NOS,cystoscopy w/ stent,pelvic floor,HEMOR Smoking Status: Current Every Day Smoker Alcohol Use: Occasionally Drug Use: None General Adult HPI: HPI: Patient is a 35-year-old female who presents to the emergency room after being found unresponsive. According to EMS her male friend called and said that she was unresponsive on the bathroom floor. He heard some noise in there and few minutes later he was not hearing anything at all. Upon EMSs arrival patient was not following any commands or tracking. They gave her 2 of intranasal Narcan. They state that it had minimal effect. They then carried her out of the house and placed an IV giving her to IV Narcan. They state that she is significantly more awake now. History is very limited from the patient. She repeats I am sorry and is able to say her name. Most questions she does not answer. Review of Systems: Review of Systems: Unable to obtain due to altered mental status Allergies: Allergies: Allergies Coded Allergies Type Severity Reaction Last Updated Verified metronidazole Allergy Intermediate Hives 12/05/17 Yes Physical Exam: PE: General: Awake. Well Nourished, well hydrated. Cooperative HEENT: Atraumatic, EOMI, PERRL, airway patent, moist oral mucosa Neck: Supple, trachea midline Respiratory: CTA bilaterally, normal effort, no wheezing/crackles CV: Sinus tachycardia, no murmur, cap refill <2 GI: Soft, nondistended, nontender, no masses MSK: No obvious deformities Skin: Warm, dry, intact Neuro: A&O x1, speech limited, sensory and motor grossly intact, no focal deficits Psych: Tearful, short attention span Current Patient Data: Labs: Laboratory Tests Test 11/04/20 19:25 11/04/20 19:32 11/04/20 20:00 11/04/20 20:22 Urine Collection Type Unknown Urine Color Yellow Urine Clarity Clear Urine pH 7.0 (<5.0-8.0) Urine Specific [place] <=1.005 (1.000-1.030) Urine Protein Negative mg/dL (NEG-TRACE) Urine Glucose (UA) Negative mg/dL (NEG) Urine Ketones (Stick) Negative mg/dL (NEG) Urine Blood Negative (NEG) Urine Nitrite Negative (NEG) Urine Bilirubin Negative (NEG) Urine Urobilinogen Dipstick 0.2 mg/dL (0.2 mg/dL) Urine Leukocyte Esterase Negative (NEG) Urine RBC Rare /HPF (0-2) Urine WBC Occ /HPF (0-4) Urine Squamous Epithelial Cells Mod /LPF Urine Bacteria 0 /HPF (0-FEW) Urine Opiates Screen Pos (NEG) Urine Methadone Screen Neg (NEG) Urine Barbiturates Neg (NEG) Urine Phencyclidine Screen Neg (NEG) Urine Amphetamine/Methamphetamine Neg (NEG) Urine Benzodiazepines Screen Neg (NEG) Urine Cocaine Screen Neg (NEG) Urine Cannabinoids Screen Neg (NEG) Urine Ethyl Alcohol Pos (NEG) POC Urine HCG, Qualitative Hcg negative (Negative) White Blood Count 5.6 x10^3/uL (4.0-11.0) Red Blood Count 4.79 x10^6/uL (3.50-5.40) Hemoglobin 14.0 g/dL (12.0-15.5) Hematocrit 43.0 % (36.0-47.0) Mean Corpuscular Volume 90 fL (79-100) Mean Corpuscular Hemoglobin 29 pg (25-35) Mean Corpuscular Hemoglobin Concent 33 g/dL (31-37) Red Cell Distribution Width 18.1 % (11.5-14.5) H Platelet Count 287 x10^3/uL (140-400) Neutrophils (%) (Auto) 58 % (31-73) Lymphocytes (%) (Auto) 33 % (24-48) Monocytes (%) (Auto) 7 % (0-9) Eosinophils (%) (Auto) 1 % (0-3) Basophils (%) (Auto) 1 % (0-3) Neutrophils # (Auto) 3.3 x10^3/uL (1.8-7.7) Lymphocytes # (Auto) 1.8 x10^3/uL (1.0-4.8) Monocytes # (Auto) 0.4 x10^3/uL (0.0-1.1) Eosinophils # (Auto) 0.1 x10^3/uL (0.0-0.7) Basophils # (Auto) 0.0 x10^3/uL (0.0-0.2) Sodium Level 145 mmol/L (136-145) Potassium Level 3.0 mmol/L (3.5-5.1) L Chloride Level 107 mmol/L (98-107) Carbon Dioxide Level 28 mmol/L (21-32) Anion Gap 10 (6-14) Blood Urea Nitrogen 7 mg/dL (7-20) Creatinine 0.6 mg/dL (0.6-1.0) Estimated GFR (Cockcroft-Gault) 113.1 BUN/Creatinine Ratio 12 (6-20) Glucose Level 93 mg/dL (70-99) Lactic Acid Level 2.9 mmol/L (0.4-2.0) H Calcium Level 8.5 mg/dL (8.5-10.1) Total Bilirubin 0.2 mg/dL (0.2-1.0) Aspartate Amino Transferase (AST) 26 U/L (15-37) Alanine Aminotransferase (ALT) 28 U/L (14-59) Alkaline Phosphatase 63 U/L (46-116) Total Protein 7.1 g/dL (6.4-8.2) Albumin 3.5 g/dL (3.4-5.0) Albumin/Globulin Ratio 1.0 (1.0-1.7) Salicylates Level < 2.8 mg/dL (2.8-20.0) L Salicylate Last Dose Date Unk Salicylate Last Dose Time Unk Acetaminophen Level 28.8 mcg/ml (10-30) Acetaminophen Last Dose Date Unk Acetaminophen Last Dose Time Unk Ethyl Alcohol Level 226 mg/dL (0-10) H SARS-CoV-2 Antigen (Rapid) Negative (NEGATIVE) Test 11/04/20 23:00 Acetaminophen Level 9.0 mcg/ml (10-30) L Acetaminophen Last Dose Date Unk Acetaminophen Last Dose Time Unk Laboratory Tests 11/04/20 20:00 Laboratory Tests 11/04/20 20:00 Vital Signs: Vital Signs Date Time Temp Pulse Resp B/P (MAP) Pulse Ox O2 Delivery O2 Flow Rate FiO2 11/04/20 22:35 109 16 187/102 (130) 97 Room Air 11/04/20 20:35 98.1 98.1 EKG: EKG: [] Heart Score: Risk Factors: Risk Factors: DM, Current or recent (<one month) smoker, HTN, HLP, family history of CAD, obesity. Risk Scores: Score 0 - 3: 2.5% MACE over next 6 weeks - Discharge Home Score 4 - 6: 20.3% MACE over next 6 weeks - Admit for Clinical Observation Score 7 - 10: 72.7% MACE over next 6 weeks - Early Invasive Strategies Radiology/Procedures: Radiology/Procedures: [] Course & Med Decision Making: Course & Med Decision Making Pertinent Labs and Imaging studies reviewed. (See chart for details) Patient is 35-year-old female who presents to the emergency room after being found in the bathroom. Patient continues to have altered mental status. Differential diagnosis includes accidental drug overdose, intentional drug overdose, seizure, electrolyte abnormalities, alcohol intoxication. Toxicology work-up was ordered. Patient improved while in the emergency room. She denies any suicidal ideations. She will not tell us what she took. Patient also states she was not drinking alcohol. Patient does have a positive alcohol level. She has a Tylenol level that is is within therapeutic limits. Repeat shows decreased Tylenol level. Patient would like to go home. Patient's test results and vitals while in the ED were fully reviewed and discussed with the patient. Patient is stable and at this time does not need admission to the hospital. We have discussed strict return precautions and the importance of following up with their Primary Care Physician. Patient stated understanding and was given an opportunity to ask any questions. Patient is in agreement with plan. Gianna Disclaimer: Gianna Disclaimer: This electronic medical record was generated, in whole or in part, using a voice recognition dictation system. Departure Departure Impression: Primary Impression: Overdose Disposition: 01 DC HOME SELF CARE/HOMELESS Condition: IMPROVED Referrals: NO PCP (PCP) Patient Instructions: Overdose, Accidental FRANCO COOK MD Nov 04, 2020 19:17
[2020-11-04 19:45] LABS: BILIRUBIN,URINE NEGATIVE (NEG); CLARITY,URINE CLEAR; COLOR,URINE YELLOW; NITRITE,URINE NEGATIVE (NEG); PROTEIN,URINE NEGATIVE (NEG-TRACE); UROBILINOGEN,URINE 0.2 mg/dL (0.2 mg/dL)
[2020-11-04 19:50] LABS: BARBITURATES NEG (NEG); BENZODIAZEPINES NEG (NEG); CANNABINOIDS NEG (NEG); COCAINE NEG (NEG); METHADONE NEG (NEG); OPIATES POS (NEG); PHENCYCLIDINE NEG (NEG)
[2020-11-04 19:51] LABS: AMPHETAMINE/METHAMPHETAMINE NEG (NEG)
[2020-11-04 20:09] LABS: BACTERIA,URINE 0 /HPF (0-FEW); RBC,URINE RARE /HPF (0-2); WBC,URINE OCC /HPF (0-4)
[2020-11-04 20:14] LABS: BASO % 1 % (0-3); EOS # 0.1 x10^3/uL (0.0-0.7); EOS % 1 % (0-3); LYMPH # 1.8 x10^3/uL (1.0-4.8); LYMPH % 33 % (24-48); MEAN CORPUSCULAR HEMOGLOBIN 29 pg (25-35); MEAN CORPUSCULAR HGB CONC 33 g/dL (31-37); MEAN CORPUSCULAR VOLUME 90 fL (79-100); MONO # 0.4 x10^3/uL (0.0-1.1); MONO % 7 % (0-9); NEUT # 3.3 x10^3/uL (1.8-7.7); NEUT % 58 % (31-73); PLATELET COUNT 287 x10^3/uL (140-400); RED BLOOD COUNT 4.79 x10^6/uL (3.50-5.40); RED CELL DISTRIBUTION WIDTH 18.1 % (11.5-14.5); WHITE BLOOD COUNT 5.6 x10^3/uL (4.0-11.0)
[2020-11-04 20:26] LABS: CALCIUM 8.5 mg/dL (8.5-10.1); CREATININE 0.6 mg/dL (0.6-1.0); GFR 113.1
[2020-11-04 20:30] LABS: ACETAMIN 28.8 mcg/ml (10-30); ETHANOL 226 mg/dL (0-10); SALIC < 2.8 mg/dL (2.8-20.0)
[2020-11-04 20:32] LABS: ALBUMIN 3.5 g/dL (3.4-5.0); TOTAL BILIRUBIN 0.2 mg/dL (0.2-1.0); TOTAL PROTEIN 7.1 g/dL (6.4-8.2)
[2020-11-05 00:02] VITALS: BP 162/101
--- NOTE | 2020-11-05 03:06 | EKG ---
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
== END 2020-11-05 | disposition home or self-care (01) ==
LOC: EEVIPCON 18:46 → ER 18:46
DX: T50.7X1A Poisoning by analeptics and opioid receptor antagonists, accidental (unintentional), initial encounter (principal); Z20.822 Contact with and (suspected) exposure to COVID-19; R41.82 Altered mental status, unspecified; F41.9 Anxiety disorder, unspecified; F32.9 Major depressive disorder, single episode, unspecified; Z87.442 Personal history of urinary calculi; F17.200 Nicotine dependence, unspecified, uncomplicated; Z98.51 Tubal ligation status; Z90.49 Acquired absence of other specified parts of digestive tract; Z98.890 Other specified postprocedural states; Z88.8 Allergy status to other drugs, medicaments and biological substances; Y92.89 Other specified places as the place of occurrence of the external cause
CPT/HCPCS: 36415; 80053; 80307; 80329; 81001; 81025; 83605; 85025; 87426; 93005; 99285; C9803; G0480; U0003

== ENCOUNTER 2021-04-02 21:25 | Emergency (ER) | payer MEDICAID ==
[~2021-04-02] VITALS: Ht 165.1 cm; Wt 72.7 kg
[~2021-04-02 21:25] MED LIST changes: +NAPR-699 PO; -NAPR250T6 PO; -OMEP40CA45 PO; +OMEP40CA7 PO
--- NOTE | 2021-04-02 22:21 | PHYS DOC ---
Past Medical History Past Medical History: Anxiety, Depression, Diverticulitis, Diverticulosis, IBS, Kidney Stone, Other Additional Past Medical Histor: Ischemic colitis, dumping syndrome, prolapse bl adder and rectum,hiatal junaid Past Surgical History: Cholecystectomy, Gastric Bypass, Hysterectomy, Tubal l igation, Other Additional Past Surgical Histo: bladder x3,vag lift,low back sx NOS,cystoscopy w/ stent,pelvic floor,HEMOR Smoking Status: Current Every Day Smoker Alcohol Use: Occasionally Drug Use: None General Adult EDM: Chief Complaint: SYNCOPE HPI: HPI: 36-year-old female past medical history of Crohn's disorder/ibs/diverticulitis/dumping syndrome, anxiety, and depression, presents to the ED brought in by EMS from [facility] with c/o diffuse abdominal pain stating, "I have a bowel problem" and "they overreacted when I was in the bathroom." EMS reported pt collapsed in the bathroom and placed c-collar after hitting head on bathroom door. Patient reports that she was drinking alcohol and asked me to look in her purse-has approximately a pain of entry of vodka missing, 20%. States she does not routinely drink alcohol and " I am not intox icated." C/0 neck pain in the ED. No cardiac history. Review of Systems: Review of Systems: Constitutional: Denies fever or chills. [] Eyes: Denies change in visual acuity. [] HENT: Denies nasal congestion or sore throat. [] Respiratory: Denies cough or shortness of breath. [] Cardiovascular: Denies chest pain or edema. [] GI: Denies nausea, vomiting, : Denies dysuria or vaginal bleeding Musculoskeletal: Denies back pain or joint pain. [] Integument: Denies rash or diaphoresis Neurologic: Denies headache, focal weakness or sensory changes. [] Endocrine: Denies polyuria or polydipsia. [] Lymphatic: Denies swollen glands. [] Psychiatric: Denies depression or anxiety. [] Heart Score: C/O Chest Pain: No Risk Factors: Risk Factors: DM, Current or recent (<one month) smoker, HTN, HLP, family history of CAD, obesity. Risk Scores: Score 0 - 3: 2.5% MACE over next 6 weeks - Discharge Home Score 4 - 6: 20.3% MACE over next 6 weeks - Admit for Clinical Observation Score 7 - 10: 72.7% MACE over next 6 weeks - Early Invasive Strategies Current Medications: Current Medications Medications (Trade) Dose Ordered Sig/Too Start Time Stop Time Status Last Admin Dose Admin Ondansetron HCl (Zofran) 8 mg 1X ONCE 04/02/21 22:30 04/02/21 22:31 Sodium Chloride 1,000 ml @ 1,000 mls/hr 1X ONCE 04/02/21 22:30 04/02/21 23:29 Allergies: Allergies: Allergies Coded Allergies Type Severity Reaction Last Updated Verified metronidazole Allergy Intermediate Hives 12/05/17 Yes Physical Exam: PE: Constitutional: Well developed, well nourished, no acute distress, non-toxic appearance, alcohol on breath HENT: Normocephalic, atraumatic, c-collar in place, no hemotympanum Eyes: PERRLA, EOMI, conjunctiva normal, no discharge. Neck: Normal range of motion, supple, Cardiovascular: S1/2 present, regular rhythm Lungs & Thorax: Speaking in full sentences, bilateral equal chest rise, no tachypnea or increased work of breathing Abdomen: soft, no tenderness, light brown stool in basin pt is sitting on Skin: Warm, dry, Back: No tenderness, no CVA tenderness. [] Extremities: No tenderness, no cyanosis, Neurologic: Alert and oriented X 3, normal motor function, normal sensory function, no focal deficits noted. [] Psychologic: Affect normal, judgement normal, mood normal. [] Current Patient Data: Vital Signs: Vital Signs Date Time Temp Pulse Resp B/P (MAP) Pulse Ox O2 Delivery O2 Flow Rate FiO2 04/02/21 21:27 98.0 106 18 113/78 (121) 99 Room Air 98.0 EKG: EKG: sinus rhythm 98 bpm NAD, qtc 479, no TWI, no MARIA ELENA/STDs Radiology/Procedures: Radiology/Procedures: IMAGING REPORT Signed PATIENT: DAYTON MONROE ACCOUNT: [id number] : 1985 LOCATION: ER AGE: 36 SEX: F EXAM STATUS: REG ER ORD. PHYSICIAN: NIK ZEE DO REASON: abd pain PROCEDURE: CT HEAD AND CERVICAL SPINE WO INDICATION: Head and neck pain COMPARISON: March 11, 2019 TECHNIQUE: Axial CT images obtained through the head and cervical spine without intravenous contrast. Coronal and sagittal reformats processed of cervical spine. One or more of the following individualized dose reduction techniques were utilized for this examination: 1. Automated exposure control; 2. Adjustment of the mA and/or kV according to patient size; 3. Use of iterative reconstruction technique. FINDINGS: Head: No intracranial hemorrhage. No midline shift. Basal cisterns patents. Ventricles and sulci are within normal limits. No acute osseous abnormality. Orbits and paranasal sinuses unremarkable. Cervical: No definite acute fracture. No dislocation. No evidence of perivertebral hematoma. There are some degenerative changes. Scattered prominent lymph nodes in the neck. IMPRESSION: * No acute intracranial hemorrhage. * No acute fracture or dislocation of the cervical spine. Electronically signed by: Duong Angela MD (04/03/2021 12:17 AM) [id number] DICTATED and SIGNED BY: DUONG ANGELA MD DATE: 04/03/21 [id number] IMAGING REPORT Signed PATIENT: DAYTON MONROE ACCOUNT: [id number] : 1985 LOCATION: ER AGE: 36 SEX: F EXAM STATUS: REG ER ORD. PHYSICIAN: NIK ZEE DO REASON: abd pain PROCEDURE: CT ABD PELV W/ IV CONTRST ONLY INDICATION: Reason: abd pain / Spl. Instructions: 60ML OMNI 300 / History: . COMPARISON: February 2020 TECHNIQUE: Axial CT images obtained through the abdomen and pelvis with contrast. One or more of the following individualized dose reduction techniques were utilized for this examination: 1. Automated exposure control; 2. Adjustment of the mA and/or kV according to patient size; 3. Use of iterative reconstruction technique. FINDINGS: Postoperative changes post gastric bypass. No abdominal aortic aneurysm. Small fat-containing umbilical hernia. Liver is mildly low density. Nonspecific but can be seen with fatty infiltration. Postcholecystectomy. No peripancreatic fluid collection. Spleen unremarkable. No hydronephrosis. Urinary bladder is partially distended. Portions of the colon wall appear prominent in thickness but not very distended. Appendix measures up to about 6 to 7 mm. This is similar to prior. Degenerative changes the spine with multilevel central canal and neural f oraminal stenosis. IMPRESSION: * Prominence of the wall of the colon. Would correlate with symptoms since colitis could have this appearance. * The appendix is mildly dilated but had a similar appearance on prior examination as well therefore the patient may have a mildly dilated appendix at baseline. Electronically signed by: Duong Angela MD (04/03/2021 12:23 AM) DESKTOP- [id number] DICTATED and SIGNED BY: DUONG ANGELA MD DATE: 04/03/21 [id number] Course & Med Decision Making: Course & Med Decision Making Pertinent Labs and Imaging studies reviewed. (See chart for details) Concern for alcohol intoxication in the setting of GI exacerbation with loose watery diarrhea. On sober re-evaluation, Nexus C-spine criteria are negative: There is no post midline tenderness, the patient is not intoxicated, there is a normal level of alertness, there are no focal neurologic deficits and there are no distracting injuries. Therefore the c-collar has been removed. Patient with steady gait, medical decision-making capacity with no focal deficits. No abdominal exam on repeat exam. Will discharge home with strict ED return precautions were given for repeat head injury, chest pain, dyspnea, syncope or neurologic deficits. Encouraged urgent outpatient follow-up with PMD and GI for diarrhea evaluation. Life-threatening processes were considered but are low suspicion at this time, given history, physical exam and ED workup. Pt was educated on all prescription medications and adverse effects. All patient's questions were answered and pt was stable at time of discharge. Life/limb-threatening differential includes but is not limited to, intracranial hemorrhage, diffuse axonal injury, spinal cord syndrome, unstable cervical fracture or SCIWORA, fractures or joint dislocations, neurovascular injuries, organ injury or laceration, pneumothorax, pneumoperitoneum, pericardial tamponade, unstable pelvic fracture, compartment syndrome, flail chest or re spiratory distress, burn injury or asphyxiation I have spoken with the patient and/or caregivers. I explained the patient's co ndition, diagnoses and treatment plan based on the information available to me at this time. I have answered the patient and/or caregiver's questions and addressed any concerns. The patient and/or caregivers have a good understanding of patient's diagnosis, condition and treatment plan as can be expected at this point. Vital signs have been stable. Patient's condition is stable and appropriate for discharge from the emergency department. Patient will pursue further outpatient evaluation with primary care physician or other designated or consulting physician as outlined in the discharge instructions. The patient and/or caregivers are agreeable to this plan of care and follow-up instructions have been explained in detail. The patient and/or caregivers have received these instructions in written form and have expressed an understanding of the discharge instructions. The patient and/or caregivers are aware that any significant change of condition or worsening of symptoms should prompt immediate return to this or the closest emergency department or call to [facility]. Gianna Disclaimer: [employer] Disclaimer: This electronic medical record was generated, in whole or in part, using a voice recognition dictation system. Departure Departure Impression: Primary Impression: Alcohol intoxication Additional Impression: Diarrhea Disposition: HOME / SELF CARE / HOMELESS Condition: STABLE Referrals: NO PCP (PCP) Follow-up with your primary care physician in 24 to 48 hours OR FOLLOW UP WITH FAMILY MEDICINE: [address] [facility], [facility] [address] [place] [address] Patient Instructions: Alcohol Intoxication, Diarrhea Additional Instructions: FOLLOW UP WITH GASTROENTEROLOGY: FOR DEFINITIVE MANAGEMENT of Crohn's/irritable bowel syndrome [facility] [address] [place] [address] EMERGENCY DEPARTMENT GENERAL DISCHARGE INSTRUCTIONS Thank you for coming to [facility] Emergency Department (ED) today and trusting us with you care. We trust that you had a positive experience in our Emergency Department. If you wish to speak to the department management, you may call the Director at [phone]. YOUR FOLLOW UP INSTRUCTIONS ARE FOLLOWS: 1. Do you have a private Doctor? If you do not have a private doctor, please ask for a resource list of physicians or clinics that may be able to assist you with follow up care. 2. The Emergency Physicain has interpreted your x-rays. The X-Ray specialist will also review them. If there is a change in the findings, you will be notified in 48 hours when at all possible. 3. A lab test or culture has been done, your results will be reviewed and you will be notified if you need a change in treatment. ADDITIONAL INSTRUCTIONS AND INFORMATION: 1. Your care today has been supervised by a physician who is specially trained in emergency care. Many problems require more than one evaluation for a complete diagnosis and treatment. We recommend that you schedule your follow up appointment as recommended to ensure complete treatment of you illness or injury. If you are unable to obtain follow up care and continue to have a problem, or if your condition worsens, we recommend that you return to the ED. 2. We are not able to safely determine your condition over the phone nor are we able to give sound medical advice over the phone. For these safety reasons, if you call for medical advice we will ask you to come to the ED for further evaluation. 3. If you have any questions regarding these discharge instructions please call the ED at [phone]. SAFETY INFORMATION: In the interest of safety, wellness, and injury prevention; we encourage you to wear your sealbelt, if you smoke; quite smoking, and we encourage family to use a protective helmet for bicycling and other sporting events that present an increased risk for head injury. IF YOUR SYMPTOMS WORSEN OR NEW SYMPTOMS DEVELOP, OR YOU HAVE CONCERNS ABOUT YOUR CONDITION; OR IF YOUR CONDITION WORSENS WHILE YOU ARE WAITING FOR YOUR FOLLOW UP APPOINTMENT; EITHER CONTACT YOUR PRIMARY CARE DOCTOR, THE PHYSICIAN WHOSE NAME AND NUMBER YOU WERE GIVEN, OR RETURN TO THE ED IMMEDIATELY. NIK ZEE DO Apr 02, 2021 22:21
[2021-04-02] MEDS ORDERED: IV NORMAL SALINE 1000ML BAG 1,000 ML IV ONE (22:30)
[2021-04-02] MEDS ORDERED: ONDANSETRON PF 4 MG/2 ML VIAL. IVP ONE (22:30)
[2021-04-02 22:59] VITALS: BP 107/68
[2021-04-02 23:14] LABS: BASO # 0.1 x10^3/uL (0.0-0.2); BASO % 1 % (0-3); EOS % 0 % (0-3); HEMATOCRIT 37.4 % (36.0-47.0); HEMOGLOBIN 12.2 g/dL (12.0-15.5); LYMPH % 12 % (24-48); MEAN CORPUSCULAR HEMOGLOBIN 29 pg (25-35); MEAN CORPUSCULAR HGB CONC 33 g/dL (31-37); MEAN CORPUSCULAR VOLUME 89 fL (79-100); MONO # 0.1 x10^3/uL (0.0-1.1); MONO % 2 % (0-9); NEUT # 7.2 x10^3/uL (1.8-7.7); NEUT % 86 % (31-73); PLATELET COUNT 415 x10^3/uL (140-400); RED BLOOD COUNT 4.22 x10^6/uL (3.50-5.40); RED CELL DISTRIBUTION WIDTH 19.8 % (11.5-14.5); WHITE BLOOD COUNT 8.4 x10^3/uL (4.0-11.0)
[2021-04-02 23:21] LABS: CALCIUM 8.3 mg/dL (8.5-10.1); CREATININE 1.3 mg/dL (0.6-1.0); GFR 46.1; POTASSIUM 3.4 mmol/L (3.5-5.1); PREG TEST PT QUAL NEGATIVE (NEG)
[2021-04-02 23:27] LABS: ALBUMIN 3.4 g/dL (3.4-5.0); ALBUMIN/GLOBULIN RATIO 0.9 (1.0-1.7); TOTAL BILIRUBIN 0.3 mg/dL (0.2-1.0)
--- NOTE | 2021-04-02 23:27 | EKG ---
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
[2021-04-02] MEDS ORDERED: CONTRAST GIVEN. MC PRN (23:30)
[2021-04-02] MEDS ORDERED: IOHEXOL 300 MG/ML 100ML VIAL. IV ONE (23:30)
[2021-04-02] MEDS ORDERED: HYDROmorphone 2 MG/ML VIAL IVP ONE (23:30)
--- NOTE | 2021-04-03 00:19 | RAD ---
INDICATION: Head and neck pain COMPARISON: March 11, 2019 TECHNIQUE: Axial CT images obtained through the head and cervical spine without intravenous contrast. Coronal a nd sagittal reformats processed of cervical spine. One or more of the following individualized dose reduction techniques were utilized for this examinat ion: 1. Automated exposure control; 2. Adjustment of the mA and/or kV according to patient size; 3 . Use of iterative reconstruction technique. FINDINGS: Head: No intracranial hemorrhage. No midline shift. Basal cisterns patents. Ventricles and sulci are within normal limits. No acute osseous abnormality. Orbits and paranasal sinuses unremarkable. Cervical: No definite acute fracture. No dislocation. No evidence of perivertebral hematoma. There are some degenerative changes. Scattered prominent lymph nodes in the neck. IMPRESSION: * No acute intracranial hemorrhage. * No acute fracture or dislocation of the cervical spine. Electronically signed by: Duong Angela MD (04/03/2021 12:17 AM) [id number]
--- NOTE | 2021-04-03 00:26 | RAD ---
INDICATION: Reason: abd pain / Spl. Instructions: 60ML OMNI 300 / History: . COMPARISON: February 2020 TECHNIQUE: Axial CT images obtained through the abdomen and pelvis with contrast. One or more of the following individualized dose reduction techniques were utilized for this examinat ion: 1. Automated exposure control; 2. Adjustment of the mA and/or kV according to patient size; 3 . Use of iterative reconstruction technique. FINDINGS: Postoperative changes post gastric bypass. No abdominal aortic aneurysm. Small fat-containing umbilical hernia. Liver is mildly low density. Nonspecific but can be seen with fatty infiltration. Postcholecystectomy . No peripancreatic fluid collection. Spleen unremarkable. No hydronephrosis. Urinary bladder is partially distended. Portions of the colon wall appear prominent in thickness but not very distended. Appendix measures up to about 6 to 7 mm. This is similar to prior. Degenerative changes the spine with multilevel central canal and neural foraminal stenosis. IMPRESSION: * Prominence of the wall of the colon. Would correlate with symptoms since colitis could have this a ppearance. * The appendix is mildly dilated but had a similar appearance on prior examination as well therefore the patient may have a mildly dilated appendix at baseline. Electronically signed by: Duong Angela MD (04/03/2021 12:23 AM) [id number]
[2021-04-03 00:31] LABS: BILIRUBIN,URINE NEGATIVE (NEG); CLARITY,URINE CLEAR; COLOR,URINE YELLOW; NITRITE,URINE NEGATIVE (NEG); PH,URINE 5.5 (<5.0-8.0); PROTEIN,URINE NEGATIVE (NEG-TRACE); UROBILINOGEN,URINE 0.2 mg/dL (0.2 mg/dL)
[2021-04-03 00:37] LABS: BARBITURATES NEG (NEG); BENZODIAZEPINES NEG (NEG); CANNABINOIDS NEG (NEG); COCAINE NEG (NEG); METHADONE NEG (NEG); OPIATES POS (NEG); PHENCYCLIDINE NEG (NEG)
[2021-04-03 00:39] LABS: AMPHETAMINE/METHAMPHETAMINE NEG (NEG)
[2021-04-03 00:42] LABS: BACTERIA,URINE 0 /HPF (0-FEW); HYALINE CASTS, URINE FEW /HPF; RBC,URINE 0 /HPF (0-2); WBC,URINE 0 /HPF (0-4)
[2021-04-03] MEDS ORDERED: HYDROmorphone 2 MG/ML VIAL IVP ONE (01:00)
[2021-04-03 04:57] LABS: % BANDS 3 % (0-9); % EOS 1 % (0-5); % LYMPHS 18 % (24-48); % MONOS 1 % (0-10); % SEGS 77 % (35-66); ANISOCYTOSIS SLIGHT; PLT ESTIMATE INCREASED (ADEQUATE)
== END 2021-04-03 03:08 | disposition home or self-care (01) ==
LOC: ER 21:25
DX: F10.129 Alcohol abuse with intoxication, unspecified (principal); Y90.7 Blood alcohol level of 200-239 mg/100 ml; R19.7 Diarrhea, unspecified; R10.84 Generalized abdominal pain; M54.2 Cervicalgia; K58.9 Irritable bowel syndrome, unspecified; Z87.442 Personal history of urinary calculi; F17.200 Nicotine dependence, unspecified, uncomplicated; Z90.49 Acquired absence of other specified parts of digestive tract; Z90.710 Acquired absence of both cervix and uterus; Z98.51 Tubal ligation status; Z95.5 Presence of coronary angioplasty implant and graft; Z88.3 Allergy status to other anti-infective agents
CPT/HCPCS: 36415; 70450; 72125; 74177; 80053; 80307; 81001; 81025; 82550; 83690; 84484; 84703; 85007; 85025; 93005; 96361; 96374; 96375; 96376; 99285; G0480; J1170; J2405; J7030; Q9967

== ENCOUNTER 2021-07-24 16:02 | Emergency (ER) | payer MEDICAID ==
[~2021-07-24] VITALS: Ht 165.1 cm; Wt 63.5 kg
[~2021-07-24 16:02] MED LIST changes: -CLIN150C15 PO; +CLIN150C16 PO; +CYCL10TA19 PO; -CYCL10TA2 PO; -ESTR2TAB PO; +ESTR2TAB3 PO
--- NOTE | 2021-07-24 17:58 | PHYS DOC ---
Past Medical History Past Medical History: Anxiety, Depression, Diverticulitis, Diverticulosis, IBS, Kidney Stone, Other Additional Past Medical Histor: Ischemic colitis,dumping syndrome,prolapse blad arvind/rectum,hiatal junaid,CHRON (LUIS URBANO APRN) Past Surgical History: Cholecystectomy, Gastric Bypass, Hysterectomy, Tubal ligation, Other Additional Past Surgical Histo: bladder x3,vag lift,low back sx NOS,cystoscopy w/stent,pelvic floor,HEMOR (LUIS URBANO APRN) Smoking Status: Former Smoker Alcohol Use: Occasionally Drug Use: None (LUIS URBANO APRN) General Adult EDM: Chief Complaint: MULTIPLE COMPLAINTS HPI: HPI: Patient is a 36-year-old female presents emergency department concerning aches and pains from a fall from 2 weeks ago, patient states she took an ibuprofen several days ago without relief. Patient states she has not been able to sleep well lately. Patient denies chest pain, shortness of breath, abdominal pain, nausea, vomiting, diarrhea. Patient denies homicidal or suicidal ideations. Patient reports her last menstrual cycle was 17 years ago when she had her hysterectomy. Patient denies other physical complaints or physical concerns. (LUIS URBANO APRN) Review of Systems: Review of Systems: 14 body systems of review of systems have been reviewed. See HPI for pertinent positives and negative responses, otherwise all other systems are negative, nonpertinent or noncontributory. Constitutional: Negative except as outlined in HPI above. Skin: Negative except as outlined in HPI above. Eyes: Negative except as outlined in HPI above. HENT: Negative except as outlined in HPI above. Respiratory: Negative except as outlined in HPI above. Cardiovascular: Negative except as outlined in HPI above. GI: Negative except as outlined in HPI above. : Negative except as outlined in HPI above. Musculoskeletal: Negative except as outlined in HPI above. Integument: Negative except as outlined in HPI above. Neurologic: Negative except as outlined in HPI above. Endocrine: Negative except as outlined in HPI above. Lymphatic: Negative except as outlined in HPI above. Psychiatric: Negative except as outlined in HPI above. (LUIS URBANO APRN) Heart Score: C/O Chest Pain: No Risk Factors: Risk Factors: DM, Current or recent (<one month) smoker, HTN, HLP, family history of CAD, obesity. Risk Scores: Score 0 - 3: 2.5% MACE over next 6 weeks - Discharge Home Score 4 - 6: 20.3% MACE over next 6 weeks - Admit for Clinical Observation Score 7 - 10: 72.7% MACE over next 6 weeks - Early Invasive Strategies (LUIS URBANO APRN) Allergies: Allergies: Allergies Coded Allergies Type Severity Reaction Last Updated Verified metronidazole Allergy Intermediate Hives 12/05/17 Yes (LUIS URBANO APRN) Physical Exam: PE: Constitutional: Well developed, well nourished, no acute distress, non-toxic appearance. 36-year-old female in no apparent distress. HENT: Normocephalic, atraumatic. Eyes: Conjunctiva normal, no discharge. Neck: Normal range of motion, no stridor. Cardiovascular: No cyanosis appreciated, distal cap refill less than 2 seconds. Lungs & Thorax: Patient is in no respiratory distress, no audible adventitious lung sounds appreciated. Abdomen: Nontender, no abnormalities noted. Skin: Warm, dry, no erythema, no rash. Back: No tenderness, no deformities. Extremities: No tenderness, no cyanosis, no clubbing, ROM intact, no edema. Neurologic: Alert and oriented X 3, normal motor function, normal sensory function, no focal deficits noted. Psychologic: Affect normal, judgement normal, mood normal. (LUIS URBANO APRN) Current Patient Data: Vital Signs: Vital Signs Date Time Temp Pulse Resp B/P (MAP) Pulse Ox O2 Delivery O2 Flow Rate FiO2 07/24/21 17:14 99.1 93 17 120/75 (90) 100 Room Air 99.1 (LUIS URBANO APRN) EKG: EKG: [] (LUIS URBANO APRN) Radiology/Procedures: Radiology/Procedures: [] (LUIS URBANO APRN) Course & Med Decision Making: Course & Med Decision Making Pertinent Labs and Imaging studies reviewed. (See chart for details) 36-year-old female, vital signs reviewed, presents emergency department concerning aches and pains after a reported fall 2 weeks ago. Patient also is concerned of recent insomnia periods. Physical examination unremarkable, after an extensive chart review the patient has presented to the emergency department several times for acute alcoholism, abdominal pains, drug-seeking behavior. Patient is complaint of pain exceeds patient's physical appearance and examination. Discussed with patient using [id number] ibuprofen for ch ronic aches and pains, melatonin for insomnia problems. Will give a list of area health care clinics and physicians for patient to establish primary care. Will give ibuprofen prior to discharge. Discussed with the patient all findings and diagnostic testing as well as the need to follow-up with their primary care provider for further evaluation and treatment or return to the ED if any new or worsening symptoms. Strict return precautions were also discussed at length, the patient voiced understanding and agreement with the discharge planning. The patient was nontoxic in appearance, in no apparent distress, and hemodynamically stable at the time of disposition. (LUIS URBANO APRN) Course & Med Decision Making I have participated in the care of this patient and I have reviewed and agree with all pertinent clinical information above including history, exam, and recommendations. Francisco Javier Cunningham DO (FRANCISCO JAVIER CUNNINGHAM DO) Gianna Disclaimer: Gianna Disclaimer: This electronic medical record was generated, in whole or in part, using a voice recognition dictation system. (LUSI URBANO APRN) Departure Departure Impression: Primary Impression: Chronic pain Qualified Codes: G89.29 - Other chronic pain Additional Impression: Insomnia Qualified Codes: G47.00 - Insomnia, unspecified Disposition: 01 HOME / SELF CARE / HOMELESS Condition: GOOD Referrals: NO PCP (PCP) Additional Instructions: You are seen today in the emergency department for chronic pain and insomnia problems. Please use [id number] ibuprofen or Tylenol for ongoing chronic aches and pains. Please obtain [id number] melatonin for insomnia problems. I am providing you a list of area physicians and Healthcare clinics for you to establish primary care, please choose a primary care provider and see this week. Thank you for visiting our Emergency Department. It was a pleasure taking care of you today in the emergency department and we appreciate you trusting us with your care. If any additional problems come up don't hesitate to return to visit us. Please follow up with your primary care provider so they can plan additional care if needed and know about the problem that you had. If symptoms worsen come back to the Emergency Department. Any concerning symptoms that start such as chest pain, shortness of air, weakness or numbness on one side of the body, running high fevers or any other concerning symptoms return to the ER. EMERGENCY DEPARTMENT GENERAL DISCHARGE INSTRUCTIONS Thank you for coming to [facility] Emergency Department (ED) today and trusting us with you care. We trust that you had a positive experience in our Emergency Department. If you wish to speak to the department management, you may call the Director at [phone]. YOUR FOLLOW UP INSTRUCTIONS ARE FOLLOWS: 1. Do you have a private Doctor? If you do not have a private doctor, please ask for a resource list of physicians or clinics that may be able to assist you with follow up care. 2. The Emergency Physicain has interpreted your x-rays. The X-Ray specialist will also review them. If there is a change in the findings, you will be notified in 48 hours when at all possible. 3. A lab test or culture has been done, your results will be reviewed and you will be notified if you need a change in treatment. ADDITIONAL INSTRUCTIONS AND INFORMATION: 1. Your care today has been supervised by a physician who is specially trained in emergency care. Many problems require more than one evaluation for a complete diagnosis and treatment. We recommend that you schedule your follow up appointment as recommended to ensure complete treatment of you illness or injury. If you are unable to obtain follow up care and continue to have a problem, or if your condition worsens, we recommend that you return to the ED. 2. We are not able to safely determine your condition over the phone nor are we able to give sound medical advice over the phone. For these safety reasons, if you call for medical advice we will ask you to come to the ED for further evaluation. 3. If you have any questions regarding these discharge instructions please call the ED at [phone]. SAFETY INFORMATION: In the interest of safety, wellness, and injury prevention; we encourage you to wear your sealbelt, if you smoke; quite smoking, and we encourage family to use a protective helmet for bicycling and other sporting events that present an increased risk for head injury. IF YOUR SYMPTOMS WORSEN OR NEW SYMPTOMS DEVELOP, OR YOU HAVE CONCERNS ABOUT YOUR CONDITION; OR IF YOUR CONDITION WORSENS WHILE YOU ARE WAITING FOR YOUR FOLLOW UP A PPOINTMENT; EITHER CONTACT YOUR PRIMARY CARE DOCTOR, THE PHYSICIAN WHOSE NAME AND NUMBER YOU WERE GIVEN, OR RETURN TO THE ED IMMEDIATELY. LUIS URBANO APRN Jul 24, 2021 17:58 FRANCISCO JAVIER CUNNINGHAM DO Jul 24, 2021 18:00
[2021-07-24] MEDS ORDERED: IBUPROFEN 200 MG TABLET. PO ONE (18:00)
[2021-07-24 18:19] VITALS: BP 118/71
== END 2021-07-24 18:21 | disposition home or self-care (01) ==
LOC: ER 16:02
DX: G89.29 Other chronic pain (principal); G47.00 Insomnia, unspecified; F41.9 Anxiety disorder, unspecified; F32.9 Major depressive disorder, single episode, unspecified; K58.9 Irritable bowel syndrome, unspecified; Z87.442 Personal history of urinary calculi; Z88.8 Allergy status to other drugs, medicaments and biological substances
CPT/HCPCS: 99284

== ENCOUNTER 2022-01-12 16:44 | Emergency (ER) | payer MEDICAID ==
[~2022-01-12] VITALS: Ht 162.6 cm; Wt 65.0 kg
[2022-01-12] MEDS ORDERED: ONDANSETRON PF 4 MG/2 ML VIAL. IVP ONE (17:00)
[2022-01-12] MEDS ORDERED: IV NORMAL SALINE 1000ML BAG 1,000 ML IV ONE ×3 (17:00→21:45)
[2022-01-12] MEDS ORDERED: fentaNYL PF VIAL 100 MCG/2 ML VIAL IVP ONE ×2 (17:00→20:45)
--- NOTE | 2022-01-12 17:06 | PHYS DOC ---
Past Medical History Past Medical History: Anxiety, Depression, Diverticulitis, Diverticulosis, IBS, Kidney Stone, Other Additional Past Medical Histor: Ischemic colitis,dumping syndrome,prolapse blad arvind/rectum,hiatal junaid,CHRON Past Surgical History: Cholecystectomy, Gastric Bypass, Hysterectomy, Tubal l igation, Other Additional Past Surgical Histo: bladder x3,vag lift,low back sx NOS,cystoscopy w/stent,pelvic floor,HEMOR Smoking Status: Former Smoker Alcohol Use: Occasionally Drug Use: None General Adult EDM: Chief Complaint: ABDOMINAL PAIN HPI: HPI: Patient is a 36-year-old female who presents today via [facility] with lower abdominal pain. Patient states that she has a history of chronic abdominal pain which she says over the last 2 days she has had increased lower abdominal pain with blood in her stool with problems with constipation and diarrhea, and today she is running a fever. Patient also states that she has had some nausea and vomiting as well, and has been unable to take any by mouth fluid over the last 24 hours. She reports occasional alcohol use to the nurse and to myself, patient also states that she has had painful urination with a foul odor to the urine. Review of Systems: Review of Systems: Constitutional: Denies fever or chills. [] Eyes: Denies change in visual acuity. [] HENT: Denies nasal congestion or sore throat. [] Respiratory: Denies cough or shortness of breath. [] Cardiovascular: Denies chest pain or edema. [] GI: Denies abdominal pain, nausea, vomiting, bloody stools or diarrhea. [] : Denies dysuria. [] Musculoskeletal: Denies back pain or joint pain. [] Integument: Denies rash. [] Neurologic: Denies headache, focal weakness or sensory changes. [] Endocrine: Denies polyuria or polydipsia. [] Lymphatic: Denies swollen glands. [] Psychiatric: Denies depression or anxiety. [] Heart Score: C/O Chest Pain: No Risk Factors: Risk Factors: DM, Current or recent (<one month) smoker, HTN, HLP, family history of CAD, obesity. Risk Scores: Score 0 - 3: 2.5% MACE over next 6 weeks - Discharge Home Score 4 - 6: 20.3% MACE over next 6 weeks - Admit for Clinical Observation Score 7 - 10: 72.7% MACE over next 6 weeks - Early Invasive Strategies Current Medications: Current Medications Medications (Trade) Dose Ordered Sig/[facility] Start Time Stop Time Status Last Admin Dose Admin Fentanyl Citrate (Fentanyl 2ml Vial) 50 mcg 1X ONCE 01/12/22 17:00 01/12/22 17:01 UNV Ondansetron HCl (Zofran) 4 mg 1X ONCE 01/12/22 17:00 01/12/22 17:01 UNV Sodium Chloride 1,000 ml @ 999 mls/hr 1X ONCE 01/12/22 17:00 01/12/22 18:00 UNV Allergies: Allergies: Allergies Coded Allergies Type Severity Reaction Last Updated Verified metronidazole Allergy Intermediate Hives 12/05/17 Yes Physical Exam: PE: Constitutional: Well developed, well nourished, moderate distress, non-toxic appearance. [] HENT: Normocephalic, atraumatic, bilateral external ears normal, oropharynx moist, no oral exudates, nose normal. [] Eyes: PERRLA, EOMI, conjunctiva light yellow, no discharge. [] Neck: Normal range of motion, no tenderness, supple, no stridor. [] Cardiovascular:Heart rate regular rhythm, no murmur [] Lungs & Thorax: Bilateral breath sounds clear to auscultation [] Abdomen: Abdomen is firm and guarded, bowel sounds are hyperactive, patient is having point tenderness over the right lower quadrant more so than over the left lower quadrant. Skin: Pale, warm, dry, no erythema, no rash. [] Back: No tenderness, no CVA tenderness. [] Extremities: No tenderness, no cyanosis, no clubbing, ROM intact, no edema. [] Neurologic: Alert and oriented X 3, normal motor function, normal sensory function, no focal deficits noted. [] Psychologic: Affect normal, judgement normal, mood normal. [] Current Patient Data: Labs: Laboratory Tests Test 01/12/22 11:47 01/12/22 17:06 White Blood Count 12.7 x10^3/uL Red Blood Count 4.07 x10^6/uL Hemoglobin 13.1 g/dL Hematocrit 38.6 % Mean Corpuscular Volume 95 fL Mean Corpuscular Hemoglobin 32 pg Mean Corpuscular Hemoglobin Concent 34 g/dL Red Cell Distribution Width 19.7 % Platelet Count 258 x10^3/uL Neutrophils (%) (Auto) 78 % Lymphocytes (%) (Auto) 9 % Monocytes (%) (Auto) 13 % Eosinophils (%) (Auto) 0 % Basophils (%) (Auto) 0 % Neutrophils # (Auto) 9.9 x10^3/uL Lymphocytes # (Auto) 1.1 x10^3/uL Monocytes # (Auto) 1.6 x10^3/uL Eosinophils # (Auto) 0.0 x10^3/uL Basophils # (Auto) 0.1 x10^3/uL Sodium Level 135 mmol/L Potassium Level 3.5 mmol/L Chloride Level 97 mmol/L Carbon Dioxide Level 27 mmol/L Anion Gap 11 Blood Urea Nitrogen 17 mg/dL Creatinine 1.4 mg/dL Estimated GFR (Cockcroft-Gault) 42.3 BUN/Creatinine Ratio 12 Glucose Level 92 mg/dL Lactic Acid Level 1.2 mmol/L Calcium Level 9.3 mg/dL Total Bilirubin 2.8 mg/dL Aspartate Amino Transf (AST/SGOT) 141 U/L Alanine Aminotransferase (ALT/SGPT) 57 U/L Alkaline Phosphatase 153 U/L Total Protein 8.5 g/dL Albumin 3.4 g/dL Albumin/Globulin Ratio 0.7 Lipase 132 U/L Urine Collection Type Void Urine Color (Auto) [place] Urine Turbidity Hazy Urine pH (Auto) 5.5 Urine Specific [place] 1.028 Urine Protein (Auto) 100 mg/dL Urine Glucose (Auto)(UA) Negative mg/dL Urine Ketones (Auto) Trace mg/dL Urine Blood (Auto) Negative Urine Nitrite Negative Urine Bilirubin (Auto) Small Urine Urobilinogen (Auto) 12 mg/dL Urine Leukocyte Esterase (Auto) Small Urine RBC 0 /HPF Urine WBC 5-10 /HPF Urine Squamous Epithelial Cells Few /LPF Urine Bacteria Few /HPF Urine Hyaline Casts Moderate /HPF Urine Mucus Mod /LPF Current Medications Medications (Trade) Dose Ordered Sig/Too Route PRN Reason Start Time Stop Time Status Last Admin Dose Admin Sodium Chloride 1,000 ml @ 999 mls/hr 1X ONCE IV 01/12/22 17:00 01/12/22 18:00 DC 01/12/22 18:43 Fentanyl Citrate (Fentanyl 2ml Vial) 50 mcg 1X ONCE IVP 01/12/22 17:00 01/12/22 17:03 DC 01/12/22 18:43 Ondansetron HCl (Zofran) 4 mg 1X ONCE IVP 01/12/22 17:00 01/12/22 17:03 DC 01/12/22 18:44 Iohexol (Omnipaque 300 Mg/ml) 60 ml 1X ONCE IV 01/12/22 19:30 01/12/22 19:31 DC 01/12/22 19:45 Info (CONTRAST GIVEN -- Rx MONITORING) 1 each PRN DAILY PRN MC SEE COMMENTS 01/12/22 19:30 01/14/22 19:29 Sodium Chloride 1,000 ml @ 999 mls/hr 1X ONCE IV 01/12/22 19:45 01/12/22 20:45 01/12/22 19:45 Vital Signs: Vital Signs Date Time Temp Pulse Resp B/P (MAP) Pulse Ox O2 Delivery O2 Flow Rate FiO2 01/12/22 20:55 20 99 Room Air 01/12/22 20:44 99.2 99.2 01/12/22 18:43 16 100 01/12/22 18:30 88 16 128/72 (90) 99 Room Air 01/12/22 16:44 101.5 93 20 112/71 (85) 96 Room Air 101.5 Vital Signs Date Time Temp Pulse Resp B/P (MAP) Pulse Ox O2 Delivery O2 Flow Rate FiO2 01/12/22 16:44 101.5 93 20 112/71 (85) 96 Room Air 101.5 EKG: EKG: [] Radiology/Procedures: Radiology/Procedures: REASON: RLQ abdomen pain PROCEDURE: CT ABD PELV W/ IV CONTRST ONLY CT OF THE ABDOMEN AND PELVIS WITH IV CONTRAST. History: Reason: RLQ abdomen pain / Spl. Instructions: [id number] [phone] / History: Comparison:April 02, 2021. Procedure: Contiguous axial images of the abdomen and pelvis were performed after the administration of 60 cc of Omni 300 IV contrast. Oral contrast: No. Findings: There is patchy opacities in the left lower lobe. There is gastrojejunal bypass. The bypass portion of stomach is collapsed. There is multiple distended air fluid filled loops of small bowel without a transition zone. The colon is mostly collapsed. The appendix is normal. There is 180 degree twisting of the mesenteric vessels which was not present previously. Liver: Diffuse hypoattenuation Spleen: Unremarkable Pancreas: Unremarkable Adrenal Glands: Unremarkable Kidneys: Unremarkable There is no mass or lymphadenopathy. There is no free air. There is no free fluid. The urinary bladder appears normal. Impression: 1. Left lower lobe infiltrate could be discoid atelectasis or pneumonia. 2. There is fatty infiltration of the liver. 3. Postsurgical changes to the stomach. There is multiple distended loops of small bowel and there is twisting of the mesentery which was not seen previously. Findings suggest internal hernia with volvulus and partial small bowel obstruction. End Impression[] Course & Med Decision Making: Course & Med Decision Making Pertinent Labs and Imaging studies reviewed. (See chart for details) 2049 I conferred with general surgery Dr. Breen regarding this patient's CT scan results he stated that the patient will need to be transferred to [facility] to see the bariatric surgeons there where she had surgery done at, he states that the CT results are related to her gastric bypass. 2054 I spoke to the transfer nurse at [facility], and gave her information regarding the patient's condition, she states that they are currently holding patients in the emergency department that she will have to contact the tobacco warehouse manager to see if she can get permission to accept this patient. I will await her call. 2103 from [facility] states they are unable to take this patient as a transfer, I did speak to patient and she states that she would be willing to go to [facility] if they are able to take her as well. 2109 spoke to the [facility] transfer center, they state that [facility] and [facility] are the only 2 hospitals that could accommodate this patient due to her bariatric surgery status, they state that [facility] is not currently excepting any transfers and [facility] is only excepting transfers to the emergency department. I will attempt to call the [facility] to see if they can accept this patient in transfer due to the distance to [facility]. 2114 Spoke to Lou at the [facility] transfer team, images were clouded to the [facility], report was given to the triage nurse and she will contact me if they are able to accept this patient [address] Lopez and he states that the patient should go to a Medical Center that has bariatric specialist due to her past medical history, I again spoke with Dr. Breen and he agrees that the patient needs to go to a center where a backtracks surgeon is available. Continue to wait [facility] to call me back, I have contacted [facility] transfer team to talk with them. [address] [facility] transfer team and gave report, he states that he will call our bariatric surgeons to see if they will accept the patient. [address] Nicole at the [facility] he has agreed to take this patient as a transfer for further evaluation and management of her acute medical issues. Transfer paperwork has been started, patient has been informed of the decision to transfer this patient to the [facility]. Patient will be going to the surgical intensive care unit nurse will call report when has a bed available. Gianna Disclaimer: Gianna Disclaimer: This electronic medical record was generated, in whole or in part, using a voice recognition dictation system. Departure Departure Impression: Primary Impression: Internal hernia Additional Impressions: Volvulus of intestine Small bowel obstruction, partial Disposition: 02 SHORT TERM HOSPITAL Condition: GUARDED Referrals: NO PCP (PCP) ACACIA BARAJAS APRN Jan 12, 2022 17:06
[2022-01-12 17:37] LABS: BACTERIA,URINE FEW /HPF (0-FEW); HYALINE CASTS, URINE MODERATE /HPF; RBC,URINE 0 /HPF (0-2)
[2022-01-12 19:03] LABS: BASO # 0.1 x10^3/uL (0.0-0.2); BASO % 0 % (0-3); EOS % 0 % (0-3); HEMATOCRIT 38.6 % (36.0-47.0); HEMOGLOBIN 13.1 g/dL (12.0-15.5); LYMPH # 1.1 x10^3/uL (1.0-4.8); LYMPH % 9 % (24-48); MEAN CORPUSCULAR HEMOGLOBIN 32 pg (25-35); MEAN CORPUSCULAR HGB CONC 34 g/dL (31-37); MEAN CORPUSCULAR VOLUME 95 fL (79-100); MONO # 1.6 x10^3/uL (0.0-1.1); MONO % 13 % (0-9); NEUT # 9.9 x10^3/uL (1.8-7.7); NEUT % 78 % (31-73); PLATELET COUNT 258 x10^3/uL (140-400); RED BLOOD COUNT 4.07 x10^6/uL (3.50-5.40); RED CELL DISTRIBUTION WIDTH 19.7 % (11.5-14.5); WHITE BLOOD COUNT 12.7 x10^3/uL (4.0-11.0)
[2022-01-12 19:18] LABS: CALCIUM 9.3 mg/dL (8.5-10.1); CREATININE 1.4 mg/dL (0.6-1.0); GFR 42.3; POTASSIUM 3.5 mmol/L (3.5-5.1)
[2022-01-12 19:23] LABS: ALBUMIN 3.4 g/dL (3.4-5.0); ALBUMIN/GLOBULIN RATIO 0.7 (1.0-1.7); TOTAL BILIRUBIN 2.8 mg/dL (0.2-1.0); TOTAL PROTEIN 8.5 g/dL (6.4-8.2)
[2022-01-12] MEDS ORDERED: CONTRAST GIVEN. MC PRN (19:30)
[2022-01-12] MEDS ORDERED: IOHEXOL 300 MG/ML 100ML VIAL. IV ONE (19:30)
--- NOTE | 2022-01-12 20:37 | RAD ---
CT OF THE ABDOMEN AND PELVIS WITH IV CONTRAST. History: Reason: RLQ abdomen pain / Spl. Instructions: [id number] [phone] / History: Comparison:April 02, 2021. Procedure: Contiguous axial images of the abdomen and pelvis were performed after the administration of 60 cc o f Omni 300 IV contrast. Oral contrast: No. Findings: There is patchy opacities in the left lower lobe. There is gastrojejunal bypass. The bypass portion o f stomach is collapsed. There is multiple distended air fluid filled loops of small bowel without a t ransition zone. The colon is mostly collapsed. The appendix is normal. There is 180 degree twisting of the mesenteric vessels which was not present previously. Liver: Diffuse hypoattenuation Spleen: Unremarkable Pancreas: Unremarkable Adrenal Glands: Unremarkable Kidneys: Unremarkable There is no mass or lymphadenopathy. There is no free air. There is no free fluid. The urinary bladder appears normal. Impression: 1. Left lower lobe infiltrate could be discoid atelectasis or pneumonia. 2. There is fatty infiltration of the liver. 3. Postsurgical changes to the stomach. There is multiple distended loops of small bowel and there is twisting of the mesentery which was not seen previously. Findings suggest internal hernia with volvu marycarmen and partial small bowel obstruction. End Impression PQRS Compliance Statement: One or more of the following individualized dose reduction techniques were utilized for this examinat ion: 1. Automated exposure control 2. Adjustment of the mA and/or kV according to patient size 3. Use of iterative reconstruction technique Electronically signed by: Demarco Lebron III, MD (01/12/2022 8:34 PM) [facility]
[2022-01-12] MEDS ORDERED: PIP/TAZO PER PHARMACY MC PRN (20:45)
[2022-01-12] MEDS ORDERED: PIPERACILLIN/TAZOBACTAM 3.375 GM in IV NORMAL SALINE 50ML 50 ML IV ONE (21:00)
[2022-01-12 22:58] VITALS: BP 115/70
== END 2022-01-12 23:07 | disposition short-term general hospital (02) ==
LOC: ER 16:44
DX: K56.600 Partial intestinal obstruction, unspecified as to cause (principal); K56.2 Volvulus; K40.90 Unilateral inguinal hernia, without obstruction or gangrene, not specified as recurrent; K58.9 Irritable bowel syndrome, unspecified; Z87.891 Personal history of nicotine dependence; Z90.49 Acquired absence of other specified parts of digestive tract; Z95.1 Presence of aortocoronary bypass graft; Z98.51 Tubal ligation status; Z90.710 Acquired absence of both cervix and uterus; Z88.3 Allergy status to other anti-infective agents
CPT/HCPCS: 36415; 74177; 80053; 81001; 83605; 83690; 85025; 87040; 87086; 87426; 96361; 96365; 96375; 96376; 99285; J2405; J2543; J3010; J7030; Q9967

== ENCOUNTER 2022-01-26 14:55 | Emergency (ER) | payer MEDICAID ==
[~2022-01-26] VITALS: Ht 162.6 cm; Wt 68.4 kg
[2022-01-26] MEDS ORDERED: IV NORMAL SALINE 1000ML BAG 1,000 ML IV SCH (17:30)
[2022-01-26] MEDS ORDERED: MORPHINE SULFATE 4 MG/ML INJ. IVP ONE (17:30)
--- NOTE | 2022-01-26 17:32 | PHYS DOC ---
Past Medical History Past Medical History: Anxiety, Depression, Diverticulitis, Diverticulosis, IBS, Kidney Stone, Other Additional Past Medical Histor: Ischemic colitis,dumping syndrome,prolapse blad arvind/rectum,hiatal junaid,CHRON (NATY LEBLANC MD) Past Surgical History: Cholecystectomy, Gastric Bypass, Hysterectomy, Tubal ligation, Other Additional Past Surgical Histo: bladder x3,vag lift,low back sx NOS,cystoscopy w/stent,pelvic floor,HEMOR (NATY LEBLANC MD) Smoking Status: Current Every Day Smoker Additional Information: B&M DAILY Alcohol Use: Occasionally Drug Use: None (NATY LEBLANC MD) General Adult EDM: Chief Complaint: RECTAL BLEED HPI: HPI: Patient is a 36 year old female with history of recent bowel surgery who presents with rectal bleeding. Patient was seen here on January 12 and transferred to outside hospital for volvulus. Patient had abdominal surgery and is now reporting bright red blood per rectum. Patient states that she has a history of rectal bleeding. Given her recent surgery, her differential has broadened. She reports left lower quadrant tenderness and pain. Vitals are within normal limits. (NATY LEBLANC MD) Review of Systems: Review of Systems: Constitutional: Denies fever or chills. [] Eyes: Denies change in visual acuity. [] HENT: Denies nasal congestion or sore throat. [] Respiratory: Denies cough or shortness of breath. [] Cardiovascular: Denies chest pain or edema. [] GI: Positive abdominal pain, no nausea, vomiting, bloody stools or diarrhea. [] : Denies dysuria. [] Musculoskeletal: Denies back pain or joint pain. [] Integument: Denies rash. [] Neurologic: Denies headache, focal weakness or sensory changes. [] Endocrine: Denies polyuria or polydipsia. [] Lymphatic: Denies swollen glands. [] Psychiatric: Denies depression or anxiety. [] (NATY LEBLANC MD) Heart Score: C/O Chest Pain: No Risk Factors: Risk Factors: DM, Current or recent (<one month) smoker, HTN, HLP, family history of CAD, obesity. Risk Scores: Score 0 - 3: 2.5% MACE over next 6 weeks - Discharge Home Score 4 - 6: 20.3% MACE over next 6 weeks - Admit for Clinical Observation Score 7 - 10: 72.7% MACE over next 6 weeks - Early Invasive Strategies (NATY LEBLANC MD) C/O Chest Pain: No (JODY ROTH DO) Current Medications: Current Medications Medications (Trade) Dose Ordered Sig/Too Start Time Stop Time Status Last Admin Dose Admin Morphine Sulfate (Morphine Sulfate) 4 mg 1X ONCE 01/26/22 17:30 01/26/22 17:31 Sodium Chloride 1,000 ml @ 1,000 mls/hr Q1H 01/26/22 17:30 01/26/22 18:29 (NATY LEBLANC MD) Allergies: Allergies: Allergies Coded Allergies Type Severity Reaction Last Updated Verified metronidazole Allergy Intermediate Hives 01/12/22 Yes (NATY LEBLANC MD) Physical Exam: PE: Constitutional: Well developed, well nourished, no acute distress, non-toxic appearance. [] HENT: Normocephalic, atraumatic, bilateral external ears normal, oropharynx moist, no oral exudates, nose normal. [] Eyes: PERRLA, EOMI, conjunctiva normal, no discharge. [] Neck: Normal range of motion, no tenderness, supple, no stridor. [] Cardiovascular:Heart rate regular rhythm, no murmur [] pulse 89 on my exam Lungs & Thorax: Bilateral breath sounds clear to auscultation [] Abdomen: Bowel sounds normal, soft, left lower quadrant tenderness, no masses, no pulsatile masses. [] Skin: Warm, dry, no erythema, no rash. [] Back: No tenderness, no CVA tenderness. [] Extremities: No tenderness, no cyanosis, no clubbing, ROM intact, no edema. [] Neurologic: Alert and oriented X 3, normal motor function, normal sensory function, no focal deficits noted. [] Psychologic: Affect normal, judgement normal, mood normal. [] (NATY LEBLANC MD) Current Patient Data: Vital Signs: Vital Signs Date Time Temp Pulse Resp B/P (MAP) Pulse Ox O2 Delivery O2 Flow Rate FiO2 01/26/22 15:20 98.2 117 18 119/73 (88) 96 Room Air 98.2 (NATY LEBLANC MD) EKG: EKG: [] (NATY LEBLANC MD) Radiology/Procedures: Radiology/Procedures: [] Impression: 36-year-old female with postsurgical rectal bleeding (NATY LEBLANC MD) Course & Med Decision Making: Course & Med Decision Making Pertinent Labs and Imaging studies reviewed. (See chart for details) Seen and examined by myself, concern for anastomosis failure. CT scan of the abdomen ordered as well as labs. Urinalysis ordered. 1 L normal saline ordered as well as 4 mg of morphine. [facility] at 1800 at the end of my shift. (NATY LEBLANC MD) Course & Med Decision Making Jalil Sloan took over at 1800 and I did a rectal exam that revealed no hemorrhoids or internal masses and there is no gross hematochezia noted. I will check a CT continue to treat her pain and reassess. Patient's fecal occult blood test is positive and she does have findings of a sigmoid colitis on her CT scan. I did discuss results of all testing including CT labs and the positive fecal occult blood test and discussed treatment options including IV antibiotics. Patient says that she does not want to be in the hospital as she is tired of being in the hospital due to her recent admission. I told her she likely needs a colonoscopy given the inflammation and bleeding and she says she is scheduled for 1 on February 11 at [facility] and she would like to wait for this to be done as an outpatient rather than staying in the hospital. I explained the reasoning why it would be of benefit for her to be in the hospital and have more urgent consultation observation and testing done and she verbalized understanding and accepted the risks of and disability by not having a more urgent evaluation in the hospital. Patient says she is comfortable taking antibiotics as an outpatient and she will observe for more concerning symptoms with worsening bleeding pain fevers or other concerns. Patient will be discharged at her request and told her to follow-up with her [facility] provider within 2 to 3 days for recheck and to come back here if she has any concerns at all. Patient aware and agreeable with plan and verbalized understanding of the above instructions. (JODY ROTH DO) Gianna Disclaimer: Gianna Disclaimer: This electronic medical record was generated, in whole or in part, using a voice recognition dictation system. (NATY LEBLANC MD) Departure Departure Impression: Primary Impression: Colitis Additional Impressions: Abdominal pain Transaminitis Alcohol abuse GI bleed Disposition: HOME / SELF CARE / HOMELESS Condition: IMPROVED Referrals: NO PCP (PCP) Patient Instructions: Colitis Scripts Amoxicillin/Potassium Clav (AUGMENTIN 875-125 TABLET) 1 Each Tablet 1 TAB PO BID for 7 Days, #14 TAB 0 Refills Prov: JODY ROTH DO 01/26/22 Ondansetron (ONDANSETRON ODT) 4 Mg Tab.rapdis 1 TAB PO PRN Q6-8HRS, #16 TAB Prov: JODY ROTH DO 01/26/22 Hydrocodone Bit/Acetaminophen (HYDROCODONE-APAP 5-325 ) 1 Tab Tablet 1 TAB PO PRN Q6HRS PRN for PAIN, #14 TAB 0 Refills Prov: JODY ROTH DO 01/26/22 NATY LEBLANC MD January 26, 2022 17:32 JODY ROTH DO January 26, 2022 18:53
[2022-01-26 17:40] LABS: BASO # 0.1 x10^3/uL (0.0-0.2); BASO % 1 % (0-3); EOS # 0.2 x10^3/uL (0.0-0.7); EOS % 3 % (0-3); HEMOGLOBIN 12.9 g/dL (12.0-15.5); LYMPH # 2.9 x10^3/uL (1.0-4.8); LYMPH % 50 % (24-48); MEAN CORPUSCULAR HEMOGLOBIN 34 pg (25-35); MEAN CORPUSCULAR HGB CONC 35 g/dL (31-37); MEAN CORPUSCULAR VOLUME 97 fL (79-100); MONO # 0.4 x10^3/uL (0.0-1.1); MONO % 7 % (0-9); NEUT # 2.2 x10^3/uL (1.8-7.7); NEUT % 39 % (31-73); PLATELET COUNT 611 x10^3/uL (140-400); RED BLOOD COUNT 3.83 x10^6/uL (3.50-5.40); RED CELL DISTRIBUTION WIDTH 20.5 % (11.5-14.5); WHITE BLOOD COUNT 5.7 x10^3/uL (4.0-11.0)
[2022-01-26 17:56] LABS: PROTHROMBIN TIME PATIENT 13.3 SEC (11.7-14.0)
[2022-01-26 17:59] LABS: CALCIUM 8.7 mg/dL (8.5-10.1); CREATININE 0.6 mg/dL (0.6-1.0); GFR 112.5
[2022-01-26 18:04] LABS: PREG TEST PT QUAL NEGATIVE (NEG)
[2022-01-26 18:05] LABS: ALBUMIN 3.2 g/dL (3.4-5.0); ALBUMIN/GLOBULIN RATIO 0.7 (1.0-1.7); TOTAL BILIRUBIN 0.4 mg/dL (0.2-1.0); TOTAL PROTEIN 7.9 g/dL (6.4-8.2)
[2022-01-26] MEDS ORDERED: CONTRAST GIVEN. MC PRN (18:15)
[2022-01-26] MEDS ORDERED: HYDROmorphone 2 MG/ML INJ. IVP ONE (18:15)
[2022-01-26] MEDS ORDERED: IOHEXOL 300 MG/ML 100ML VIAL. IV ONE (18:15)
[2022-01-26 18:43] LABS: BARBITURATES NEG (NEG); BENZODIAZEPINES NEG (NEG); CANNABINOIDS NEG (NEG); COCAINE NEG (NEG); METHADONE NEG (NEG); OPIATES POS (NEG); PHENCYCLIDINE NEG (NEG)
[2022-01-26 18:46] LABS: FECAL OB PT POSITIVE (NEG)
[2022-01-26 18:47] LABS: AMPHETAMINE/METHAMPHETAMINE NEG (NEG)
--- NOTE | 2022-01-26 18:50 | RAD ---
EXAMINATION: CT ABDOMEN+PELVIS W CLINICAL HISTORY: Rectal bleeding. TECHNIQUE: CT of the abdomen and pelvis was performed using standard technique, scanning from just ab ove the dome of the diaphragm to the symphysis pubis following administration of intravenous contrast . CT Dose Reduction Employed: One or more of the following individualized dose reduction techniques wer e utilized for this examination: 1. Automated exposure control 2. Adjustment of the mA and/or kV ac cording to patient size 3. Use of iterative reconstruction technique. COMPARISON: 01/12/2022 FINDINGS: Right hilar old calcified granuloma. Visualized lungs and heart otherwise unremarkable. Diffuse hypoattenuation of the hepatic parenchyma, compatible with steatosis. Partial fatty atrophy o f the pancreas. Cholecystectomy. Spleen, adrenal glands, and kidneys unremarkable. Minimally filled urinary bladder suboptimally evaluated. Hysterectomy. Moderate wall thickening pericolonic edema along the mid to distal sigmoid colon. No significant dive rticulosis. Nonspecific ill-defined anorectal soft tissue fullness which does not appear terribly dis similar from the prior study. Bariatric postoperative changes. No evidence of bowel obstruction. No abdominal aortic or iliac artery aneurysm. Tiny fat-containing periumbilical hernia with mild surrounding subcutaneous stranding. Mild thoracolu mbar degenerative changes. IMPRESSION: Findings compatible with sigmoid colitis as described. Multiple nonacute findings as described. Electronically signed by: Inocente Jose DO (01/26/2022 6:42 PM) [facility]
[2022-01-26 18:52] LABS: RBC,URINE 0 /HPF (0-2)
[2022-01-26 18:53] LABS: BACTERIA,URINE MODERATE /HPF (0-FEW)
[2022-01-26 19:11] LABS: PLT ESTIMATE INCREASED (ADEQUATE)
[2022-01-26 19:12] LABS: ANISOCYTOSIS SLIGHT
[2022-01-26 19:30] VITALS: BP 131/75
[2022-01-26] MEDS ORDERED: ONDA4TAB12 PO (19:30)
[2022-01-26] MEDS ORDERED: fentaNYL PF VIAL 100 MCG/2 ML VIAL IVP ONE (19:30)
[2022-01-26] MEDS ORDERED: HYDR-2761 PO (19:30)
[2022-01-26] MEDS ORDERED: AMOX1TAB61 PO (19:30)
== END 2022-01-26 19:59 | disposition home or self-care (01) ==
LOC: ER 14:55
DX: K92.2 Gastrointestinal hemorrhage, unspecified (principal); K52.9 Noninfective gastroenteritis and colitis, unspecified; R10.32 Left lower quadrant pain; R74.01 Elevation of levels of liver transaminase levels; Z98.51 Tubal ligation status; F10.10 Alcohol abuse, uncomplicated; Y90.8 Blood alcohol level of 240 mg/100 ml or more; F17.200 Nicotine dependence, unspecified, uncomplicated; Z87.442 Personal history of urinary calculi; Z90.49 Acquired absence of other specified parts of digestive tract; Z95.1 Presence of aortocoronary bypass graft; Z95.5 Presence of coronary angioplasty implant and graft; Z90.710 Acquired absence of both cervix and uterus; Z88.3 Allergy status to other anti-infective agents
CPT/HCPCS: 36415; 74177; 80053; 80307; 81001; 82274; 83690; 84484; 84703; 85025; 85610; 87086; 96361; 96374; 96375; 99285; G0480; J1170; J2270; J3010; J7030; Q9967